=== PATIENT | male | born 1975 | race African-American/Black ===

== ENCOUNTER → 2016-10-11 | Outpatient (CLI) | payer OTHER ==
[~2016-10-11] MED LIST: ACHD5005 PO; ACYC800T PO; AMLO2.5T PO; AMLODIPINE BESYLATE; HCTZ; LISINOPRIL; METOPROLOL; WRF10T PO
== END ==
LOC: CARD 14:53
PROVIDERS: ATTEND Internal Medicine Cardiovascular Disease
DX: I08.3 Combined rheumatic disorders of mitral, aortic and tricuspid valves (principal); R93.1 Abnormal findings on diagnostic imaging of heart and coronary circulation; G47.33 Obstructive sleep apnea (adult) (pediatric); Z95.2 Presence of prosthetic heart valve
CPT/HCPCS: 93306

== ENCOUNTER → 2016-11-20 | Outpatient (CLI) | payer OTHER ==
[~2016-11-20] MED LIST changes: +AMLO10TA2 PO; +HYDR25TA4 PO; +LISI-552 PO; +METO-270 PO; +MULT-35 PO; +NCT7P TD; +WARF10TA44 PO
--- NOTE | 2016-11-20 13:03 | Diagnostic Imaging Report ---
INDICATION: Left-sided tongue numbness x1 week. Noncontrast brain CT is performed and compared to 10/20/2009. FINDINGS: There were no extra-axial fluid collections. No intracranial hemorrhage. No intracranial mass or mass effect. No midline shift. The ventricles are normal in size and position. There is an apparent old infarct in the right occipital lobe which appeared similar on 10/20/09. There is no definite new abnormality. Consider MRI for more sensitive evaluation if clinically warranted. Calvarial windows are unremarkable. 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 There is no acute abnormality seen. Consider MRI for further evaluation if symptoms persist. Dictated by: Dictated on workstation # [id number]
== END ==
LOC: RAD 12:14
PROVIDERS: ATTEND Physician Assistant
DX: R20.0 Anesthesia of skin (principal); I35.1 Nonrheumatic aortic (valve) insufficiency; I34.0 Nonrheumatic mitral (valve) insufficiency; G47.33 Obstructive sleep apnea (adult) (pediatric); R93.1 Abnormal findings on diagnostic imaging of heart and coronary circulation; Z86.73 Personal history of transient ischemic attack (TIA), and cerebral infarction without residual deficits
CPT/HCPCS: 70450

== ENCOUNTER → 2016-11-22 | Day surgery (SDC) | payer OTHER ==
[~2016-11-22] VITALS: Ht 177.8 cm; Wt 95.3 kg
[~2016-11-22] MED LIST changes: +HEParin (CATH LAB) 0 ML IV ONE; +NS IV 1000 ML 1,000 ML IV SCH; +NS IV 1000 ML 1,000 ML ONE
[2016-11-22 11:32] VITALS: BP 136/90
[2016-11-22 11:53] LABS: MEAN PLATELET VOLUME 10.7 FL (7.4-10.4); RED BLOOD COUNT 4.13 10^6/uL (4.35-5.85); RED CELL DISTRIBUTION WIDTH 15.4 % (10.0-14.5); WHITE BLOOD COUNT 5.1 10^3/uL (4.3-11.0)
[2016-11-22 11:53] LABS: BILIRUBIN,URINE NEGATIVE (NEGATIVE); KETONES,URINE NEGATIVE (NEGATIVE); LEUKOCYTE ESTERASE ,URINE 1+ (NEGATIVE); NITRITE,URINE NEGATIVE (NEGATIVE); PH,URINE 7 (5-9); PROTEIN,URINE 1+ (NEGATIVE); UROBILINOGEN,URINE 1 MG/DL (NORMAL)
[2016-11-22 12:03] LABS: INR 2.6 (0.8-1.4); PROTHROMBIN TIME PATIENT 27.7 SEC (12.2-14.7)
[2016-11-22 12:05] LABS: SQUAMOUS EPITHELIAL CELL,UR RARE /HPF; WBC,URINE RARE /HPF
--- NOTE | 2016-11-22 12:13 | Diagnostic Imaging Report ---
EXAMINATION: Portable upright radiograph of the chest. INDICATION: Chest pain. Hypertension. FINDINGS: The lungs are clear. The heart is markedly enlarged. No effusion or pneumothorax. The mediastinum and lay appear unremarkable. There are sternotomy wires seen. IMPRESSION: Cardiomegaly. Clear lungs. Dictated by: Dictated on workstation # [id number]
[2016-11-22 12:14] LABS: ALANINE AMINOTRANSFERASE 38 U/L (0-55); ALBUMIN 3.8 GM/DL (3.2-4.5); ANION GAP 7 MMOL/L (5-14); ASPARTATE AMINO TRANSFERASE 29 U/L (5-34); BILIRUBIN,TOTAL 1.1 MG/DL (0.1-1.0); BLOOD UREA NITROGEN 11 MG/DL (7-18); BUN/CREATININE RATIO 13; CARBON DIOXIDE 26 MMOL/L (21-32); CHLORIDE 106 MMOL/L (98-107); CHOLESTEROL 156 MG/DL (< 200); CREATININE SERUM 0.88 MG/DL (0.60-1.30); DIRECT LDL 89 MG/DL (1-129); GFR ESTIMATED > 60; GLUCOSE 86 MG/DL (70-105); POTASSIUM 3.6 MMOL/L (3.6-5.0); SODIUM 139 MMOL/L (135-145); TOTAL PROTEIN 7.5 GM/DL (6.4-8.2); TRIGLYCERIDES 90 MG/DL (<150); VLDL CHOLESTEROL 18 MG/DL (5-40)
== END ==
LOC: CATH 11:00
PROVIDERS: ATTEND Internal Medicine Cardiovascular Disease
DX: R94.31 Abnormal electrocardiogram [ECG] [EKG] (principal); R07.89 Other chest pain; Z53.09 Procedure and treatment not carried out because of other contraindication; Z95.2 Presence of prosthetic heart valve; I10 Essential (primary) hypertension; E78.5 Hyperlipidemia, unspecified; I50.9 Heart failure, unspecified
CPT/HCPCS: 36415; 71010; 80053; 80061; 81000; 85027; 85610; 85730; 87081; 93005

== ENCOUNTER 2016-11-24 07:57 | Day surgery (SDC) | payer OTHER ==
[~2016-11-24] VITALS: Ht 177.8 cm; Wt 95.3 kg
[2016-11-24] VITALS (11 sets, daily range): BP systolic 128–143; BP diastolic 85–102
[~2016-11-24 07:57] MED LIST changes: -HEParin (CATH LAB) 0 ML IV ONE; +LIDOCAINE 2% VISCOUS 15 ML UDC ONE; -METO-270 PO; +METO-387 PO; -NCT7P TD; +NICO-586 TD; -NS IV 1000 ML 1,000 ML IV SCH
[2016-11-24] MEDS ORDERED: HEParin (CATH LAB) 2,000 ML IV ONE (07:58)
[2016-11-24] MEDS ORDERED: NS IV 1000 ML 1,000 ML IV SCH ×2 (08:05→09:39)
[2016-11-24 08:37] LABS: INR 1.2 (0.8-1.4); PROTHROMBIN TIME PATIENT 15.3 SEC (12.2-14.7)
[2016-11-24] MEDS ORDERED: MIDAZOLAM 5 MG/5 ML (VERSED) VIAL ONE (08:45)
[2016-11-24] MEDS ORDERED: fentaNYL INJECTION 100 MCG/2 ML AMP ONE (08:45)
--- NOTE | 2016-11-24 08:57 | Cardiac Procedure Note-CS/ASA ---
Pre-Procedure Note Pre-Op Procedure Note H&P Reviewed The H&P was reviewed, patient examined and no changes noted. Date H&P Reviewed: Nov 24, 2016 Time H&P Reviewed: 08:56 Conscious Sedation Pre-Proced Time Reviewed: 08:56 ASA Class: 3 Airway Mallampati Classification: ([place] appropriate class) I. II. III, IV Lungs Heart ASA score ASA 1: a normal healthy patient ASA 2: a patient with a mild systemic disease (mid diabetes, controlled hypertension, obesity x ASA 3: a patient with a severe systemic disease that limits activity (angina , COPD, prior Myocardial infarction) ASA 4: a patient with an incapacitating disease that is a constant threat to life (CHF, renal failure) ASA 5: a moribund patient not expected to survive 24 hrs. (ruptured aneurysm) ASA 6: a declared brain patient whose organs are being harvested. For emergent operations, add the letter E after the classification Grade 3 Sedation Plan: Analgesia, Amnesia, Plan communicated to team members, Discussed options with patient/fam, Discussed risks with patient/fam Note The patient is an appropriate candidate to undergo the planned procedure, sedation, and anesthesia. The patient immediately re-assessed prior to indication. DANNA RODRIGUEZ MD Nov 24, 2016 08:57
[2016-11-24] MEDS ORDERED: HEParin 1000 UNIT/ML (10ML VIAL) FOR BOLUS ONE (09:16)
[2016-11-24] MEDS ORDERED: EPTIFIBATIDE BOLUS 0 ML IV ONE (09:16)
[2016-11-24] MEDS ORDERED: NITROGLYCERIN DRIP 25 MG/D5W 0 ML IV ONE (09:16)
[2016-11-24] MEDS ORDERED: PATIENT MAY USE OWN MEDS, ALL PO SCH (09:45)
[2016-11-24] MEDS ORDERED: warFARin 10 MG (COUMADIN) TAB PO NR (09:45)
--- NOTE | 2016-11-24 09:48 | Cardiac Cath Report ---
Cardiac Cath Report Physician (s)/Line Leader (s) Physician DANNA RODRIGUEZ MD Pre-Procedure Diagnosis Pre-Procedure Diagnosis: CHF Post-Procedure Note Procedure Start Date: Nov 24, 2016 Procedure Start Time: 09:00 Name of Procedure: coronary angiogram, thoracic aortogram Findings/Procedure Note PROCEDURE NOTE: After explaining the procedure to the patient, all pros and cons were explained, all questions were answered. The patient signed the consent and then she was placed on the cardiac catheterization laboratory. The patient was placed on the cardiac catheterization laboratory. Groin was prepped SL fashion local anesthesia was used. Sheath placed in the artery. Chela right and left catheter were used to access the coronary system, AR 2 catheter was used to axis the bypassed right coronary artery Pigtail was used without crossing the prosthetic valve, aortic arch angiogram and ascending aortogram evaluation was done At the end of the procedure the sheath was removed. Closure device was used FINDINGS: Hemodynamics Aorta 124/73 mean of 82 ANATOMY: Left Main is normal Left Anterior Descending slightly tortuous mild disease nonobstructive disease Left Circumflex nondominant, moderate in size with nonobstructive disease Right Coronory Artery is totally occluded proximally, bypass graft to the proximal right coronary artery is patent with excellent flow distally mild to moderate disease in the midright coronary artery Aorta evaluation was done with a pigtail catheter placed just above the prosthetic valve, the aortic root and proximal ascending aorta is dilated, mild atherosclerotic disease in the aortic arch and descending aorta with prominent aorta CONCLUSION: [id number]-[id number] coronary artery disease on the left system, nonobstructive disease Totally occluded proximal right coronary artery, patent vein graft to the proximal right coronary artery with mild to moderate disease in the mid picayune right coronary artery, good flow distally Ascending aortic aneurysm, dilated aortic root with atherosclerotic disease Normal function bicuspid metallic aortic valve DISCUSSION AND RECOMMENDATION: patient has mild to moderate disease with patent bypass graft to the proximal right coronary artery, good flow distally, nonischemic cardiomyopathy, medical therapy is recommended no intervention is warranted Anesthesia Type: Conscious Sedation Estimated blood loss (mL): 25 ml Contrast Amount: 125 ml Total Radiation Dose: 933 mGy Post-Procedure Diagnosis Post-operative diagnosis: Thoracic aortic aneurysm Nonischemic cardiomyopathy, ejection fraction 30 percent, chronic compensated left ventricle systolic dysfunction Coronary artery disease Hypertension Aortic valve replacement DANNA RODRIGUEZ MD Nov 24, 2016 09:48
--- NOTE | 2016-11-24 09:50 | Clinic Account Progress/Dx ---
Clinic Account Progress/Dx DIAGNOSIS: Date Seen by Provider: Nov 24, 2016 Time Seen by Provider: 09:50 Diagnosis Thoracic aortic aneurysm Nonischemic cardiomyopathy, ejection fraction 30 percent, chronic compensated left ventricle systolic dysfunction Coronary artery disease Hypertension Aortic valve replacement DANNA RODRIGUEZ MD Nov 24, 2016 09:50
[2016-11-24] MEDS ORDERED: amLODIPine 10 MG (NORVASC) TAB PO NR (12:31)
[2016-11-24] MEDS ORDERED: HYDROCHLOROTHIAZIDE 25 MG (HCTZ) TAB PO NR (12:32)
[2016-11-24] MEDS ORDERED: lisINopril 20 MG (ZESTRIL) TAB PO NR (12:33)
--- NOTE | 2016-11-24 12:49 | Discharge Inst-Post CATH ---
Discharge Inst-CATH Post Cardiac Cath D/C Inst Follow Up/Plan PT/INR next week Appointment with Dr Jimenez's office in 2 weeks CARDIAC CATH DISCHARGE INSTRUCTIONS *Hold Metformin for 48 hours post heart cath. ACTIVITY * Go Home directly and rest. * Limit activity of the leg (or wrist if it was used) for 7 days including aerobics, swimming, jogging, bicycling, etc. * Restrict stair-climbing for 7 days if possible, if not, climb up with your non -cath leg, then bring together on the same step. * Avoid lifting, pushing, pulling or excessive movement of the affected extremity for 7 days. * Customary sexual activity may be resumed after 2 days-use caution not to use a position that strains or causes pain to the affected extremity. * No driving for 24 hours. * NO SMOKING. * Avoid straining for bowel movements for 7 days. * Gentle walking on level ground is allowed. * Returning to work will depend on the type of procedure and the results. Your doctor will discuss this with you. CALL YOUR DOCTOR FOR ANY OF THE FOLLOWING: *If bleeding from the puncture site occurs- Apply gentle pressure to site with clean cloth and call your doctor or EMS. * If a knot or lump forms under the skin, increases in size, or causes pain. * If bruising appears to be worsening or moving further down your leg instead of disappearing. * Temperature above 101 F. CARE OF YOUR GROIN INCISION; * Bruising or purple discoloration of the skin near the puncture site is common. * You may shower only, no bathtub bathing for 5 days. Be careful to avoid slipping as your leg may feel stiff. * If a closure device was used on your femoral artery, please see the attached guide regarding care of the device and your leg. * REMOVE the dressing from your groin the next day after your procedure in the shower. CARE OF YOUR WRIST INCISION; * Bruising or purple discoloration of the skin near the puncture site is common. * You may shower. * DO NOT submerge wrist. * Remove dressing in 24 hours. DANNA JIMENEZ MD Nov 24, 2016 12:49 pm
[2016-11-24] MEDS ORDERED: amLODIPine 10 MG (NORVASC) TAB PO SCH (21:00)
[2016-11-25] MEDS ORDERED: MULTIVIT W/MINERALS TAB (THERAGRAN M) PO SCH (07:00)
[2016-11-25] MEDS ORDERED: HYDROCHLOROTHIAZIDE 25 MG (HCTZ) TAB PO SCH (09:00)
[2016-11-25] MEDS ORDERED: lisINopril 20 MG (ZESTRIL) TAB PO SCH (09:00)
[2016-11-25] MEDS ORDERED: NICOTINE 7 MG (NICODERM) PATCH TD SCH (09:00)
[2016-11-26] MEDS ORDERED: NICOTINE PATCH REMOVAL TP SCH (09:00)
== END 2016-11-24 16:20 | disposition home or self-care (01) ==
LOC: CATH 07:57 → ICU 09:55 → ENPENDDIS 16:00 → CATH 16:20
PROVIDERS: ATTEND Physician Assistant
DX: R07.89 Other chest pain (principal); I25.10 Atherosclerotic heart disease of native coronary artery without angina pectoris; I50.22 Chronic systolic (congestive) heart failure; I10 Essential (primary) hypertension; I71.2 Thoracic aortic aneurysm, without rupture; I25.82 Chronic total occlusion of coronary artery; Z79.01 Long term (current) use of anticoagulants; I34.0 Nonrheumatic mitral (valve) insufficiency; R20.0 Anesthesia of skin; I69.398 Other sequelae of cerebral infarction; G47.33 Obstructive sleep apnea (adult) (pediatric); E78.5 Hyperlipidemia, unspecified; Z95.2 Presence of prosthetic heart valve; Z95.1 Presence of aortocoronary bypass graft; Z79.899 Other long term (current) drug therapy; Z72.0 Tobacco use
CPT/HCPCS: 36415; 85610; 93455; 93567

== ENCOUNTER 2019-05-23 10:59 | Emergency (ER) | payer SELFPAY ==
[~2019-05-23] VITALS: Ht 182 cm; Wt 93.2 kg
[~2019-05-23 10:59] MED LIST changes: -AMLO10TA2 PO; +AMLO10TA7 PO; -LIDOCAINE 2% VISCOUS 15 ML UDC ONE; -METO-387 PO; +MTP25TSR PO; -NS IV 1000 ML 1,000 ML ONE
[2019-05-23 11:35] LABS: BASOPHILS % (AUTO) 0 % (0-10); EOSINOPHILS # (AUTO) 0.1 10^3/uL (0.0-0.3); EOSINOPHILS % (AUTO) 1 % (0-10); HEMATOCRIT 34 % (40-54); HEMOGLOBIN 11.2 G/DL (13.3-17.7); LYMPHOCYTES # (AUTO) 1.9 X 10^3 (1.0-4.0); LYMPHOCYTES % (AUTO) 29 % (12-44); MEAN CORPUSCULAR HEMOGLOBIN 32 PG (25-34); MEAN CORPUSCULAR HGB CONC 33 G/DL (32-36); MEAN CORPUSCULAR VOLUME 95 FL (80-99); MEAN PLATELET VOLUME 10.1 FL (7.4-10.4); MONOCYTES # (AUTO) 0.4 X 10^3 (0.0-1.0); MONOCYTES % (AUTO) 7 % (0-12); NEUTROPHILS # (AUTO) 4.2 X 10^3 (1.8-7.8); NEUTROPHILS % (AUTO) 63 % (42-75); PLATELET COUNT 180 10^3/uL (130-400); RED CELL DISTRIBUTION WIDTH 13.3 % (10.0-14.5); WHITE BLOOD COUNT 6.6 10^3/uL (4.3-11.0)
[2019-05-23 11:48] LABS: INR 1.9 (0.8-1.4); PROTHROMBIN TIME PATIENT 22.4 SEC (12.2-14.7)
[2019-05-23 11:59] LABS: ALANINE AMINOTRANSFERASE 87 U/L (0-55); ALBUMIN 3.6 GM/DL (3.2-4.5); ALKALINE PHOSPHATASE 55 U/L (40-136); BILIRUBIN,TOTAL 0.5 MG/DL (0.1-1.0); BUN/CREATININE RATIO 12; CALCIUM 8.7 MG/DL (8.5-10.1); CARBON DIOXIDE 24 MMOL/L (21-32); CHLORIDE 104 MMOL/L (98-107); CREATININE SERUM 1.21 MG/DL (0.60-1.30); GFR ESTIMATED > 60; GLUCOSE 106 MG/DL (70-105); MAGNESIUM 1.8 MG/DL (1.6-2.4); SODIUM 138 MMOL/L (135-145); TOTAL PROTEIN 6.8 GM/DL (6.4-8.2)
--- NOTE | 2019-05-23 12:06 | ED Chest Pain ---
General Chief Complaint: Chest Pain Stated Complaint: CHEST TIGHTNESS;SOA Nursing Triage Note: pt presents to ED with c/o chest pain/pressure since yesterday morning. pt states the pressure gets worse when he lays down and on exertion. pt went to PCP office yesterday and had EKG done, in which the doctor told him that he "could have an arrythmia and to go to ED." however, pt wanted to wait it out and see if pain subsided. pain continued today. pt has hx of CHF. Nursing Sepsis Screen: No Definite Risk Source: patient, old records Exam Limitations: no limitations History of Present Illness Date Seen by Provider: May 23, 2019 Time Seen by Provider: 11:05 Initial Comments This 44-year-old man presents to the emergency room with complaints of chest tightness and orthopnea for the past 2-3 days. He has a mechanical heart valve and is on warfarin therapy. His primary care providers Dr. Castellon. 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 He has worsening chest tightness and dyspnea upon lying flat and on exertion. Allergies and Home Medications Allergies Coded Allergies: NKANo Known Allergies (Verified Allergy, Unknown, 03/04/06) Home Medications Amlodipine Besylate 10 Mg Tablet, 10 MG PO HS, (Reported) Hydrochlorothiazide 25 Mg Tablet, 25 MG PO DAILY, (Reported) Lisinopril 20 Mg Tablet, 20 MG PO DAILY, (Reported) Metoprolol Succinate 25 Mg Tab.er.24h, 25 MG PO HS, (Reported) Multivitamin 1 Each Tablet, 1 TAB PO DAILY, (Reported) Nicotine 1 Each Patch.td24, 7 MG TD DAILY, (Reported) Potassium Chloride 20 Meq Tablet.er, 2 TAB PO DAILY Prescribed by: CRISTINA DONALDSON on 05/23/19 1310 Warfarin Sod 10 Mg Tab, 15 MG PO SuTuTh, (Reported) TAKES 1 & 1/2 (10MG) TABLETS Warfarin Sodium 10 Mg Tablet, 10 MG PO MoWeFrSa, (Reported) Patient Home Medication List Home Medication List Reviewed: Yes Review of Systems Review of Systems Constitutional: no symptoms reported EENTM: No Symptoms Reported Respiratory: See HPI Cardiovascular: See HPI Gastrointestinal: No Symptoms Reported Genitourinary: No Symptoms Reported Musculoskeletal: no symptoms reported Skin: no symptoms reported Psychiatric/Neurological: No Symptoms Reported Endocrine: No Symptoms Reported Past Faxxbvy-Wtuecj-Roxuwt Hx Past Med/Social Hx: Reviewed Nursing Past Med/Soc Hx Patient Social History Alcohol Use: Occasionally Uses Recreational Drug Use: No (PAST HX) Smoking Status: Former Smoker Type Used: Cigarettes Former Smoker, Quit: Nov 21, 2016 2nd Hand Smoke Exposure: No Recent Foreign Travel: No Contact w/Someone Who Travel: No Recent Infectious Disease Expo: No Recent Hopitalizations: No Seasonal Allergies Seasonal Allergies: No Past Medical History Surgeries: Yes Cardiac, Valve Replacement (Biomechanical) Respiratory: No Cardiac: Yes (CHF) Neurological: No Genitourinary: No Gastrointestinal: No Musculoskeletal: No Endocrine: No HEENT: No Cancer: No Psychosocial: No Integumentary: No Physical Exam Vital Signs Vital Signs - First Documented 05/23/19 11:28 Temp 36.6 Pulse 77 Resp 16 B/P (MAP) 127/95 (106) Pulse Ox 99 O2 Delivery Room Air Capillary Refill : Less Than 3 Seconds Height, Weight, BMI Height: 5'10.00" Weight: 210lbs. 0.0oz. 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 Norm as Tested Skin: Normal Color, Warm/Dry Progress/Results/Core Measures Results/Orders Lab Results Laboratory Tests Test 05/23/19 11:20 Range/Units White Blood Count 6.6 4.3-11.0 10^3/uL Red Blood Count 3.56 L 4.35-5.85 10^6/uL Hemoglobin 11.2 L 13.3-17.7 G/DL Hematocrit 34 L 40-54 % Mean Corpuscular Volume 95 80-99 FL Mean Corpuscular Hemoglobin 32 25-34 PG Mean Corpuscular Hemoglobin Concent 33 32-36 G/DL Red Cell Distribution Width 13.3 10.0-14.5 % Platelet Count 180 130-400 10^3/uL Mean Platelet Volume 10.1 7.4-10.4 FL Neutrophils (%) (Auto) 63 42-75 % Lymphocytes (%) (Auto) 29 12-44 % Monocytes (%) (Auto) 7 0-12 % Eosinophils (%) (Auto) 1 0-10 % Basophils (%) (Auto) 0 0-10 % Neutrophils # (Auto) 4.2 1.8-7.8 X 10^3 Lymphocytes # (Auto) 1.9 1.0-4.0 X 10^3 Monocytes # (Auto) 0.4 0.0-1.0 X 10^3 Eosinophils # (Auto) 0.1 0.0-0.3 10^3/uL Basophils # (Auto) 0.0 0.0-0.1 10^3/uL Prothrombin Time 22.4 H 12.2-14.7 SEC INR Comment 1.9 H 0.8-1.4 Activated Partial Thromboplast Time 42 H 24-35 SEC Sodium Level 138 135-145 MMOL/L Potassium Level 3.0 L 3.6-5.0 MMOL/L Chloride Level 104 98-107 MMOL/L Carbon Dioxide Level 24 21-32 MMOL/L Anion Gap 10 5-14 MMOL/L Blood Urea Nitrogen 14 7-18 MG/DL Creatinine 1.21 0.60-1.30 MG/DL Estimat Glomerular Filtration Rate > 60 BUN/Creatinine Ratio 12 Glucose Level 106 H 70-105 MG/DL Calcium Level 8.7 8.5-10.1 MG/DL Corrected Calcium 9.0 8.5-10.1 MG/DL Magnesium Level 1.8 1.6-2.4 MG/DL Total Bilirubin 0.5 0.1-1.0 MG/DL Aspartate Amino Transf (AST/SGOT) 83 H 5-34 U/L Alanine Aminotransferase (ALT/SGPT) 87 H 0-55 U/L Alkaline Phosphatase 55 40-136 U/L Myoglobin 48.7 10.0-92.0 NG/ML Troponin I 0.121 H <0.028 NG/ML B-Type Natriuretic Peptide 1273.1 H <100.0 PG/ML Total Protein 6.8 6.4-8.2 GM/DL Albumin 3.6 3.2-4.5 GM/DL Micro Results Microbiology 2/7/20 Influenza Types A,B Antigen (IRA) - Final, Complete My Orders Orders - CRISTINA MCINTOSH MD Cbc With Automated Diff (05/23/19 11:04) Magnesium (05/23/19 11:04) Chest 1 View, Ap/Pa Only (05/23/19 11:04) Ekg Tracing (05/23/19 11:04) Comprehensive Metabolic Panel (05/23/19 11:04) Myoglobin Serum (05/23/19 11:04) Protime With Inr (05/23/19 11:04) Partial Thromboplastin Time (05/23/19 11:04) O2 (05/23/19 11:04) Monitor-Rhythm Ecg Trace Only (05/23/19 11:04) Ed Iv/Invasive Line Start (05/23/19 11:04) Troponin I (05/23/19 11:04) BNP (05/23/19 11:11) Influenza A And B Antigens (05/23/19 11:17) Aspirin Chewable Tablet (Baby Aspirin Ch (05/23/19 12:15) Furosemide Injection (Lasix Injection) (05/23/19 12:30) Potassium Chloride (Tablet) (Klor Con Ta (05/23/19 12:30) Furosemide Injection (Lasix Injection) (05/23/19 12:37) Aspirin Chewable Tablet (Baby Aspirin Ch (05/23/19 12:37) Potassium Chloride (Tablet) (K Dur Table (05/23/19 12:37) Potassium Chloride (Tablet) (Klor Con Ta (05/23/19 12:47) Medications Given in ED Current Medications Medications Dose Ordered Sig/Edith Route Start Time Stop Time Status Last Admin Dose Admin Aspirin 324 mg ONCE ONCE PO 05/23/19 12:15 05/23/19 12:16 DC 05/23/19 12:44 324 MG Furosemide 40 mg ONCE ONCE IVP 05/23/19 12:30 05/23/19 12:31 DC 05/23/19 12:44 40 MG Potassium Chloride 40 meq ONCE ONCE PO 05/23/19 12:30 05/23/19 12:31 DC 05/23/19 12:52 40 MEQ Vital Signs/I&O 05/23/19 05/23/19 05/23/19 11:28 11:28 13:26 Temp 36.6 Pulse 77 78 Resp 16 18 B/P (MAP) 127/95 (106) 123/95 Pulse Ox 99 98 O2 Delivery Room Air Room Air Room Air Blood Pressure Mean: 106 Progress Progress Note : Progress Note Patient was found to have hypokalemia and replacement was initiated with 40 mEq orally. BNP was also elevated suggesting acute failure. Lasix 40 mg IV was administered. Case was discussed with Dr. Cristina who agreed admission for monitoring of potassium replacement and diuresis was appropriate. However, patient refused admission and stating he must work due to lack of insurance and needing to pay his rent. He therefore left AGAINST MEDICAL ADVICE. He was strongly encouraged to stay but declined. Influenza screen was negative. Initial ECG Impression Date: May 23, 2019 Initial ECG Impression Time: 11:16 Initial ECG Rate: 75 Initial ECG Rhythm: Normal Sinus Comment Sinus rhythm with no ST elevation or depression. Automated read reports left bundle branch block. EKG is fairly similar to prior. No abnormal intervals or axis deviation. Diagnostic Imaging Diagonstic Imaging: Xray Plain Films/CT/US/NM/MRI: chest Comments Chest x-ray viewed by me and report reviewed. See report below: NAME: PTEER MOON [facility] REC#: [id number] PT STATUS: DEP ER : 1975 PHYSICIAN: CRISTINA MCINTOSH MD ADMIT DATE: 05/23/19/ER Signed Date of Exam:05/23/19 CHEST 1 VIEW, AP/PA ONLY INDICATION: Chest tightness and shortness of air. TIME OF EXAMINATION: 11:26 AM. COMPARISON: Prior chest from 11/22/2016. FINDINGS: The heart is enlarged. There are changes of median sternotomy. The lungs are clear. No infiltrate or failure is seen. There is no effusion or pneumothorax. IMPRESSION: Cardiomegaly and status post CABG. No acute feature is detected. Report given to Dr. Mcintosh at 12:50 p.m. 05/23/2019/cb Dictated by: Dictated on workstation # [id number] Dict: 05/23/19 1433 Trans: 05/23/19 1535 RG [id number] Interpreted by: NICO MAR MD Electronically signed by: NICO MAR MD 05/23/19 1535 Departure Impression Primary Impression: Acute heart failure Qualified Codes: I50.9 - Heart failure, unspecified Additional Impressions: Chest tightness Hypokalemia Disposition: AGAINST MEDICAL ADVICE Condition: Against Medical Advice Departure-Patient Inst. Referrals: TAWANDA CRISTINA MD [facility] DEREK CASTELLON MD (PCP/Family) Primary Care Physician Patient Instructions: Chest Pain, Heart Failure, Adult, Hypokalemia (DC) Add. Discharge Instructions: Please be advised relieving hospital AGAINST MEDICAL ADVICE. Leaving the hospital before care plan is complete may result in worsening of your condition, cardiac arrhythmias, or even . Please follow-up with your primary care provider soon as possible. Please take an additional dose of Lasix (furosemide) 40 mg by mouth tomorrow morning. Please take potassium chloride as prescribed this afternoon when you peaked up. Take an additional dose tomorrow morning with your dose of Lasix. Return to the emergency room if symptoms worsen or you change her mind about admission. All discharge instructions reviewed with patient and/or family. Voiced un derstanding. Scripts Potassium Chloride (Potassium Chloride) 20 Meq Tablet.er 2 TAB PO DAILY, #4 TAB Prov: CRISTINA MCINTOSH MD 05/23/19 Copy Copies To 1: TAWANDA CRISTINA MD [facility] Copies To 2: DEREK CASTELLON MD, JOSHUA T MD May 23, 2019 12:06
[2019-05-23] MEDS ORDERED: ASPIRIN 81 MG CHEW (CHILDREN'S ASA) PO ONE (12:15)
[2019-05-23] MEDS ORDERED: FUROSEMIDE 40 MG/4 ML INJ (LASIX) IVP ONE (12:30)
[2019-05-23] MEDS ORDERED: KCL 10 MEQ TAB (MICRO K) PO ONE ×2 (12:30→12:47)
[2019-05-23] MEDS ORDERED: FUROSEMIDE 40 MG/4 ML INJ (LASIX) ONE (12:37)
[2019-05-23] MEDS ORDERED: ASPIRIN 81 MG CHEW (CHILDREN'S ASA) ONE (12:37)
[2019-05-23] MEDS ORDERED: KCL 20 MEQ TAB (K-DUR) PO ONE (12:37)
[2019-05-23] MEDS ORDERED: POTA-51 PO (13:10)
[2019-05-23 13:26] VITALS: BP 123/95
--- NOTE | 2019-05-23 14:34 | Diagnostic Imaging Report ---
INDICATION: Chest tightness and shortness of air. TIME OF EXAMINATION: 11:26 AM. COMPARISON: Prior chest from 11/22/2016. FINDINGS: The heart is enlarged. There are changes of median sternotomy. The lungs are clear. No infiltrate or failure is seen. There is no effusion or pneumothorax. IMPRESSION: Cardiomegaly and status post CABG. No acute feature is detected. Report given to Dr. Mcintosh at 12:50 p.m. 05/23/2019/cb Dictated by: Dictated on workstation # [id number]
== END 2019-05-23 13:27 | disposition left against medical advice (07) ==
LOC: EDUNIT# 10:59 → ER 11:01
DX: I50.9 Heart failure, unspecified (principal); R07.89 Other chest pain; E87.6 Hypokalemia; Z79.01 Long term (current) use of anticoagulants; Z87.891 Personal history of nicotine dependence; Z95.4 Presence of other heart-valve replacement
CPT/HCPCS: 36415; 71045; 80053; 83735; 83874; 83880; 84484; 85025; 85610; 85730; 87804; 93005; 93041

== ENCOUNTER 2019-07-14 07:14 | Observation (INO) | payer OTHER ==
[~2019-07-14] VITALS: Ht 180.3 cm; Wt 91.3 kg
[~2019-07-14 07:14] MED LIST changes: +POTA-51 PO
--- OUTSIDE RECORDS SUMMARY | 2019-07-14 07:20 | XMS REPORT | Continuity of Care Document ---
Demographics Preferred Language Unknown Marital Status Unknown Scientology Affiliation Unknown Race Unknown Ethnic Group Unknown Author Organization Unknown Address Unknown Phone Unavailable Allergies There is no data. Medications There is no data. Problems There is no data. Procedures There is no data. Results Test Result Range CMP - 06/24/19 13:15 GLUCOSE 90 mg/dL 65-99 UREA NITROGEN (BUN) 18 mg/dL 7-25 CREATININE 1.10 mg/dL 0.60-1.35 eGFR NON-AFR. [place] 81 mL/min/1.73m2 > OR = 60 eGFR 93 mL/min/1.73m2 > OR = 60 BUN/CREATININE RATIO NOT APPLICABLE (calc) 6-22 SODIUM 140 mmol/L 135-146 POTASSIUM 3.2 mmol/L 3.5-5.3 CHLORIDE 103 mmol/L 98-110 CARBON DIOXIDE 27 mmol/L 20-32 CALCIUM 9.0 mg/dL 8.6-10.3 PROTEIN, TOTAL 7.2 g/dL 6.1-8.1 ALBUMIN 4.0 g/dL 3.6-5.1 GLOBULIN 3.2 g/dL (calc) 1.9-3.7 ALBUMIN/GLOBULIN RATIO 1.3 (calc) 1.0-2. 5 BILIRUBIN, TOTAL 0.8 mg/dL 0.2-1.2 ALKALINE PHOSPHATASE 57 U/L 36-130 AST 26 U/L 10-40 ALT 18 U/L 9-46 BNP - 06/24/19 13:15 B TYPE NATRIURETIC PEPTIDE (BNP) 469 pg/mL <100 Encounters ACCT No. Visit Date/Time Discharge Status Pt. Type Provider Facility Loc./Unit Complaint [id number] 06/24/2019 09:00:00 Document Registration
--- OUTSIDE RECORDS SUMMARY | 2019-07-14 07:20 | XMS REPORT ---
Author Author [facility] Organization [facility] Address [address] [address] Care Team Providers Care Science Intern Name Role Phone DEREK CASTELLON Keith Unavailable DANNA JIMENEZ MD Unavailable Unavailable ASHISH MEYER, CRISTINA Julien Unavailable Unavailable LESLI CARTER, FREDY K Unavailable Unavailab DANNA Quispe MD Unavailable Unavailable IVAN APPIAH APRN Unavailable Unavailable Unavailable Unavailable Allergies Normalized Allergy Reported Date of Reaction(s) Care Provider Facility Allergy Type classification allergen Allergy Onset MA (5 Unclassified NKANo Known 03-04-2006 - no information ARIS JIMENEZ , Not Available sources.) Allergies (07265) Medications No Information Problems Problem Normalized Date of Normalized Normalized Provider Fac ility Classification Problem(s) Problem Problem Problem Sta tus Onset/Resoluti Duration on Other Abnormal 05-23-2019 - Episodic Active DANNA JIMENEZ [facility] Via screening for findings on [facility] suspected diagnostic Hospital - conditions imaging of [place] (not mental heart and (23842) disorders or coronary infectious circulation disease) (10 Translations: sources.) [ ABNORMAL ELECTROCARDIOG ALEK [ECG] [EKG]] Other nervous Anesthesia of 05-23-2019 - Episodic Active [facility]ED [facility] Via system skin INDU [place] disorders (6 N , [place] [facility] - sources.) [place] ([address]) 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 FREDY [facility] Via atherosclerosi occlusion of THOMAS-ANDERSO Caitlin s and other coronary N , [facility] - heart disease artery [place] (6 sources.) Translations: (93765) [ ATHSCL HEART DISEASE OF [place] CORONARY ] 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 BASMATHEW JIMENEZ , [facility] Via disorders (20 rheumatic [facility] sources.) disorders of Hospital - mitral, aortic [place] and tricuspid (42180) valves Translations: [ PRESENCE OF PROSTHETIC HEART VALVE, PRESENCE OF OTHER HEART-VALVE REPLACEMEN, NONRHEUMATIC MITRAL (VALVE) INSUFFICIENC, NONRHEUMATIC AORTIC (VALVE) INSUFFICIENC] Essential Essential 05-23-2019 - Chronic Active BASHAR JENNIFER , [facility] Via hypertension (primary) [facility] (6 sources.) hypertension [facility] () Congestive Heart failure, 05-23-2019 - Chronic Active BASHAR JENNIFER , [facility] Via heart failure; unspecified [facility] nonhypertensiv Translations: Hospital - e (12 [ CHRONIC [place] sources.) SYSTOLIC () (CONGESTIVE) HEART FAIL] Disorders of Hyperlipidemia 05-23-2019 - Chronic Active BASHA R JENNIFER , [facility] Via lipid , unspecified [facility] metabolism (6 Hospital - sources.) [place] () Fluid and Hypokalemia 05-27-2019 - Episodic Active CRISTINA [facility] Via electrolyte Caitlin HINOJOSA disorders (6 MD Hospital - sources.) [place] () Other correction 05-23-2019 - Episodic Active FREDY [facility] Via aftercare (9 (current) use INDU Tucker sources.) of N [facility] Hospital - anticoagulants [place] ([address]) 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 BASHAR JENNIFER , [facility] Via codes; sleep apnea [facility] unclassified (adult) Hospital - (10 sources.) (pediatric) [place] ([address]) Nonspecific Other chest 05-23-2019 - Episodic Active BASHAR MA RJI , [facility] Via chest pain (18 pain MD [facility] sources.) [facility] (86548) Other Other long 05-23-2019 - Episodic Active FREDY [facility] Via aftercare (3 term (current) MARTHA-RENETTA Tucker sources.) drug therapy RAUL [facility] (06736) Late effects Other sequelae 05-23-2019 - Chronic Active MERED [facility] Via of of cerebral MARTHA-RENETTA Tucker cerebrovascula infarction [facility] - r disease (3 [place] sources.) ([address]6550) Other Pain in left 05-23-2019 - Episodic Active ASHDEN [facility] , [facility] Via non-traumatic knee TRANSPORT COORDINATOR Caitlin joint Hospital - disorders (3 [place] sources.) ([address]140) Screening and Personal 05-27-2019 - Episodic Active CRISTINA [facility] Via history of history of Caitlin HINOJOSA mental health nicotine Hospital - and substance dependence [place] abuse codes (6 (75740) sources.) Other Personal 05-23-2019 - Episodic Active FREDY [facility] V ia circulatory history of THOMAS-ANDERSO [place]lin disease (3 transient N , [facility] - sources.) ischemic [place] attack (TIA), (49421) and cerebral infarction without residual deficits Coronary Presence of 05-23-2019 - Episodic Active FREDY [facility] Via atherosclerosi aortocoronary MARTHA-ANDSADIAO Caitlin s and other bypass graft N , [facility] - heart disease [place] (3 sources.) (10931) Residual Procedure and 05-23-2019 - Episodic Active BASMATHEW STRONG , [facility] Via codes; treatment not MD [facility] unclassified carried out Hospital - (3 sources.) because of [place] other (86452) contraindicati on Aortic; 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-2019 - Chronic Active FREDY [facility] V ia peripheral; 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, N , [facility] - artery without [place] aneurysms (3 rupture (39778) sources.) Residual Tobacco use 05-23-2019 - Episodic Active FREDY [facility] Via codes; THOMAS-ANDERSO [place]lin unclassified N [facility] - (3 sources.) [place] ([address]72) Procedures No Information Immunizations No Information Results Test Name Value Interpretation Reference Range Date Time Fa cility (Normalized) (Normalized) (Medline Reference) No panel information on 2019-06-27 CURRENT COUMADIN 10mg daily (no code) [facility] (66896) INR Coag (PPP) 3.0 {INR} (no code) 0.9 - 1.1 {INR} [facility] [Relative time] [facility] (88598) No panel information on 2019-06-24 Albumin 4.0 g/dL (N) 3.4 - 5.4 g/dL [facility] [Mass/Vol] [facility] (13515) Albumin/Globulin 1.3 {ratio} (N) 1 - 2.5 {ratio} Comm [facility] [Mass ratio] [facility] (12133) ALP [Catalytic 57 U/L (N) 44 - 147 U/L [facility] activity/Vol] [facility] (77314) ALT [Catalytic 18 U/L (N) 4 - 40 U/L [facility] activity/Vol] [facility] (33450) AST [Catalytic 26 U/L (N) 10 - 34 U/L [facility] activity/Vol] [facility] (76364) Bilirubin 0.8 mg/dL (N) 0.1 - 1.2 mg/dL [facility] [Mass/Vol] [facility] (24447) Calcium 9.0 mg/dL (N) 8.5 - 10.2 mg/dL [facility] [Mass/Vol] [facility] (57785) Chloride 103 mmol/L (N) 95 - 106 mmol/L [facility] [Moles/Vol] [facility] (40400) CO2 [Moles/Vol] 27 mmol/L (N) 23 - 29 mmol/L [facility] (85056) Creatinine 1.10 mg/dL (N) [facility] [Mass/Vol] [facility] (27570) Free T4 1.2 ng/dL (N) 0.9 - 2.2 ng/dL [facility] [Mass/Vol] [facility] (06482) GFR/1.73 sq M 93 (N) 90 - 120 Community [facility] predicted among mL/min/{1.73_m2} mL/min/{1.73_m2} [place] [facility] blacks MDRD [facility] (S/P/Bld) [Vol (48163) rate/Area] GFR/1.73 sq 81 (N) 90 - 120 [facility] th M.predicted MDRD mL/min/{1.73_m2} mL/min/{1.73_m2} [facility] (S/P/Bld) [Vol [facility] rate/Area] (98914) Globulin (S) 3.2 g/dL (N) 2 - 3.5 g/dL [facility] ealt [Mass/Vol] [facility] (87881) Glucose 90 mg/dL (N) 60 - 125 mg/dL [facility] [Mass/Vol] [facility] (45496) Natriuretic 469 pg/mL (H) 0 - 100 pg/mL [facility] ealth peptide B (Bld) [facility] [Mass/Vol] [facility] (47375) Potassium 3.2 mmol/L (L) 3.7 - 5.2 mmol/L [facility] [Moles/Vol] [facility] (58844) Protein 7.2 g/dL (N) 6.4 - 8.3 g/dL [facility] [Mass/Vol] [facility] (04425) Sodium 140 mmol/L (N) 135 - 145 mmol/L [facility] [Moles/Vol] [facility] (85147) TSH Qn 0.70 m[IU]/L (N) 0.4 - 4 m[IU]/L [facility] (97459) Urea nitrogen 18 mg/dL (N) 7 - 20 mg/dL [facility] [Mass/Vol] [facility] (43366) Urea NOT APPLICABLE (no code) [facility] nitrogen/Creatin [facility] [Mass ratio] [facility] (12736) Vital Signs The data below is from unstructured sources Vital Response Date/Time Temperature (Fahrenheit) 98.0 degree s F (97.6 - 99.5) 11/24/2016 4:00pm Temperature (Calculated Celsius) 36. 01996 degrees C (36.4 - 37.5) 11/24/2016 4:00pm Temperature Source Temporal 11/24/2016 4:00pm Pulse Rate (adult) 64 bpm (60 - 90) 11/24/2016 4:00pm Respiratory Rate 14 bpm (12 - 24) 11/24/2016 4:00pm O2 Sat by Pulse Oximetry 100 % (88 - 100) 11/24/2016 4:00pm Blood Pressure 134/91 mm Hg 11/24/2016 4:00pm Blood Pressure Mean 105 mm Hg 11/24/2016 4:00pm Pain Numeric Pain Scale 0-No Pain 11/24/2016 4:00pm Height (Feet) 5 feet 02/2017 8:09am Height (Inches) 10.00 inches 11/24/2016 8:09am Height (Calculated Centimeters) 177. 669512 cm 11/24/2016 8:09am Weight (Pounds) 210 pounds 11/24/2016 8:09am Weight (Ounces) 0.0 oz 0 11/24/2016 8:09am Weight (Calculated Grams) 23872.40 gm 11/24/2016 8:09am Weight (Calculated Kilograms) 95.254 399 kilograms 11/24/2016 8:09am Calculated BMI 30.1 11/14 8:09am Capillary Refill Capillary Refill Less Than 3 Seconds 11/24/2016 4:00pm Interventions No Information Plan of Treatment The data below is from unstructured sources Discharge Date 11/24/16 4:20pm Instructions/Education Provided CARD IAC CATH DISCHARGE INSTRUC Prescriptions See Medication Section Goals No Information Social History No Information Functional Status The data below is from unstructured sourcesNo functional status information available. Mental Status No Information Encounters Encounter Normalized Encounter Encounter Diagnosis Care Provi sudhakar Organization Date Type 05-23-2019 Emergency department no information CRISTINA SKY [facility] Via Caitlin - patient visit (no phone) [facility] 05-23-2019 (no phone) 07-04-2019 Patient encounter no information (no phone) [facility] (no phone) 06-27-2019 Patient encounter no information (no phone) [facility] (no phone) 06-24-2019 Patient encounter no information (no phone) [facility] (no phone) 05-23-2019 Patient encounter no information CRISTINA SOLOMON [facility] Via Caitlinbear cardenas MD (no phone) [facility] (no phone) 11-24-2016 Patient encounter no information no name (no phone) no organization name - procedure (no phone) 11-24-2016 11-24-2016 Patient encounter no information FREDY Erickson [facility] [place] ia Caitlin - [facility] (no phone) 11-22-2016 Patient encounter no information DANNA JIMENEZ MD (no [facility] Via Caitlin procedure phone) [facility] (no phone) 11-20-2016 Patient encounter no information FREDY K [facility] V ia Caitlin procedure LESLI CARTER (no Hospital [facility] phone) (no phone) 10-11-2016 Patient encounter no information no name (no phone) no organization name procedure (no phone) 10-11-2016 Patient encounter no information DANNA JIMENEZ MD (no [facility] Via Caitlin procedure phone) [facility] (no phone) 12-07-2015 Patient encounter no information IVAN APPIAH APR N [facility] Via Caitlin procedure (no phone) [facility] (no phone) Medical Equipment No Information Payers No Information Advance Directives Directive Response Recor ded Date/Time Advance Directives No 8:08am Health Care Power of Checkerer Hand No 11/24/16 8:08am Organ Donor Yes 11/24/16 8:08am Resuscitation Status Full Code 11/24/16 8:08am Discharge Instructions Patient Instructions Physician Instructions Follow Up/Plan PT/INR next week Appointment with Dr Jimenez's office in 2 weeks CARDIAC CATH DISCHARGE INSTRUCTIONS *Hold Metformin for 48 hours post heart cath. ACTIVITY * Go Home directly and rest. * Limit activity of the leg (or wrist if it was used) for 7 days including aerobics, swimming, jogging, bicycling, etc. * Restrict stair-climbing for 7 days if possible, if not, climb up with your non-cath leg, then bring together on the same step. * Avoid lifting, pushing, pulling or excessive movement of the affected extremity for 7 days. * Customary sexual activity may be resumed after 2 days-use caution not to use a position that strains or causes pain to the affected extremity. * No driving for 24 hours. * NO SMOKING. * Avoid straining for bowel movements for 7 days. * Gentle walking on level ground is allowed. * Returning to work will depend on the type of procedure and the results. Your doctor will discuss this with you. CALL YOUR DOCTOR FOR ANY OF THE FOLLOWING: *If bleeding from the puncture site occurs- Apply gentle pressure to site with clean cloth and call your doctor or EMS. * If a knot or lump forms under the skin, increases in size, or causes pain. * If bruising appears to be worsening or moving further down your leg instead of disappearing. * Temperature above 101 F. CARE OF YOUR GROIN INCISION; * Bruising or purple discoloration of the skin near the puncture site is common. * You may shower only, no bathtub bathing for 5 days. Be careful to avoid slipping as your leg may feel stiff. * If a closure device was used on your femoral artery, please see the attached guide regarding care of the device and your leg. * REMOVE the dressing from your groin the next day after your procedure in the shower. CARE OF YOUR WRIST INCISION; * Bruising or purple discoloration of the skin near the puncture site is common. * You may shower. * DO NOT submerge wrist. * Remove dressing in 24 hours. Additional Source Comments This clinical document has been generated using [employer] software that has been certified by the Office of the National Coordinator for Health Information Technology (ONC 15.99.04.3023.Diam.31.00.0.999027) and the National Committee for Library Monitor (NCQA, as an eMeasure certified technology). FOR RECORDS PERTAINING TO PATIENTS WHO ARE OR HAVE BEEN ENROLLED IN A CHEMICAL D EPENDENCY/SUBSTANCE ABUSE PROGRAM, SOME INFORMATION MAY BE OMITTED. This clinica l summary was aggregated from multiple sources. Caution should be exercised in using it in the provision of clinical care. This summary normalizes information from multiple sources, and as a consequence, information in this document may ma terially change the coding, format and clinical context of patient data. In rocio tion, data may be omitted in some cases. CLINICAL DECISIONS SHOULD BE BASED ON T HE PRIMARY CLINICAL RECORDS. [employer] provides no warranty or guara ntee of the accuracy or completeness of information in this document.The followi ng information is based on time limited clinical information
[2019-07-14 08:03] LABS: BASOPHILS % (AUTO) 0 % (0-10); EOSINOPHILS % (AUTO) 1 % (0-10); HEMATOCRIT 38 % (40-54); HEMOGLOBIN 12.6 G/DL (13.3-17.7); LYMPHOCYTES # (AUTO) 1.9 X 10^3 (1.0-4.0); LYMPHOCYTES % (AUTO) 33 % (12-44); MEAN CORPUSCULAR HEMOGLOBIN 30 PG (25-34); MEAN CORPUSCULAR HGB CONC 33 G/DL (32-36); MEAN CORPUSCULAR VOLUME 92 FL (80-99); MEAN PLATELET VOLUME 10.1 FL (7.4-10.4); MONOCYTES # (AUTO) 0.6 X 10^3 (0.0-1.0); MONOCYTES % (AUTO) 10 % (0-12); NEUTROPHILS # (AUTO) 3.3 X 10^3 (1.8-7.8); NEUTROPHILS % (AUTO) 57 % (42-75); PLATELET COUNT 171 10^3/uL (130-400); RED CELL DISTRIBUTION WIDTH 13.9 % (10.0-14.5); WHITE BLOOD COUNT 5.8 10^3/uL (4.3-11.0)
[2019-07-14 08:13] LABS: ALANINE AMINOTRANSFERASE 24 U/L (0-55); ALBUMIN 3.9 GM/DL (3.2-4.5); ALKALINE PHOSPHATASE 67 U/L (40-136); BILIRUBIN,TOTAL 1.2 MG/DL (0.1-1.0); BUN/CREATININE RATIO 9; CARBON DIOXIDE 24 MMOL/L (21-32); CHLORIDE 104 MMOL/L (98-107); CREATININE SERUM 1.19 MG/DL (0.60-1.30); GFR ESTIMATED > 60; GLUCOSE 92 MG/DL (70-105); INR 3.2 (0.8-1.4); MAGNESIUM 1.7 MG/DL (1.6-2.4); POTASSIUM 3.3 MMOL/L (3.6-5.0); PROTHROMBIN TIME PATIENT 33.8 SEC (12.2-14.7); SODIUM 138 MMOL/L (135-145); TOTAL PROTEIN 7.6 GM/DL (6.4-8.2)
[2019-07-14 08:37] LABS: ERYTHROCYTE SEDIMENTATION RATE 7 MM/HR (0-15)
--- NOTE | 2019-07-14 08:49 | ED General ---
General Chief Complaint: Respiratory Problems Stated Complaint: LEG/STOMACH SWELLING;SOA Nursing Triage Note: PT PRESENTS TO ED WITH COMPLAINTS OF CONCERNS OF INCREASING CHF/PNEUMONIA. PT REPORTS "IT HURTS TO BREATHE" PT ALSO REPORTS SWELLING TO LEGS. Nursing Sepsis Screen: No Definite Risk Source of Information: Patient Exam Limitations: No Limitations History of Present Illness Date Seen by Provider: Jul 14, 2019 Time Seen by Provider: 07:38 Initial Comments Here with report of shortness of air that it's been increasing over the past several days as well as leg swelling. Recently had med changed from hydrochlorothiazide to furosemide. Does have history of heart failure. Denies fever or chills. Denies sick contacts. Works at the [employer]. Denies cough currently but is short of breath. States that he is having to sleep elevated. Patient was treated for possible pneumonia a few weeks back and started the antibiotics last week. Otherwise taking his meds as directed. Does have history of mechanical heart valve. Timing/Duration: 1 Week, Getting Worse Severity: Moderate Associated Systoms: No Cough, No Fever/Chills, No Nausea/Vomiting; Shortness of Air; No Weakness Allergies and Home Medications Allergies Coded Allergies: NKANo Known Allergies (Verified Allergy, Unknown, 03/04/06) Home Medications Amlodipine Besylate 10 Mg Tablet, 10 MG PO HS, (Reported) Hydrochlorothiazide 25 Mg Tablet, 25 MG PO DAILY, (Reported) Lisinopril 20 Mg Tablet, 20 MG PO DAILY, (Reported) Metoprolol Succinate 25 Mg Tab.er.24h, 25 MG PO HS, (Reported) Multivitamin 1 Each Tablet, 1 TAB PO DAILY, (Reported) Nicotine 1 Each Patch.td24, 7 MG TD DAILY, (Reported) Potassium Chloride 20 Meq Tablet.er, 2 TAB PO DAILY Prescribed by: CRSITINA DONALDSON on 05/23/19 1310 Warfarin Sod 10 Mg Tab, 15 MG PO SuTuTh, (Reported) TAKES 1 & 1/2 (10MG) TABLETS Warfarin Sodium 10 Mg Tablet, 10 MG PO MoWeFrSa, (Reported) Patient Home Medication List Home Medication List Reviewed: Yes Review of Systems Review of Systems Constitutional: see HPI; No chills, No fever EENTM: No ear pain, No nose congestion Respiratory: No cough; short of breath Cardiovascular: No chest pain; edema, Hx of Intervention Gastrointestinal: No abdominal pain, No nausea, No vomiting Genitourinary: no symptoms reported Musculoskeletal: no symptoms reported All Other Systems Reviewed Negative Unless Noted: Yes Past Mxkiprl-Ziuqci-Psboyp Hx Past Med/Social Hx: Reviewed Nursing Past Med/Soc Hx (yes (irregular breakfast ordered a PT/PTT of his lip) Patient Social History Alcohol Use: Occasionally Uses Recreational Drug Use: No (PAST HX) Smoking Status: Former Smoker Type Used: Cigarettes Former Smoker, Quit: May 05, 2019 2nd Hand Smoke Exposure: No Recent Foreign Travel: No Contact w/Someone Who Travel: No Recent Infectious Disease Expo: No Recent Hopitalizations: No Physical Abuse: No Sexual Abuse: No Mistreated: No Fear: No Seasonal Allergies Seasonal Allergies: No Past Medical History Surgeries: Yes Cardiac, Valve Replacement Respiratory: No Cardiac: Yes (CHF) Neurological: No Genitourinary: No Gastrointestinal: No Musculoskeletal: No Endocrine: No HEENT: No Cancer: No Psychosocial: No Integumentary: No Family Medical History Reviewed Nursing Family Hx Physical Exam Vital Signs Vital Signs - First Documented 07/14/19 07:27 Temp 36.9 Pulse 96 Resp 18 B/P (MAP) 127/103 (111) Pulse Ox 97 Capillary Refill : Less Than 3 Seconds Height, Weight, BMI Height: 5'10.00" Weight: 210lbs. 0.0oz. [id number]; 29.00 BMI Method:Stated General Appearance: No Apparent Distress, WD/WN HEENT: PERRL/EOMI, Pharynx Normal Neck: Non Tender, Supple Respiratory: Lungs Clear, Normal Breath Sounds Cardiovascular: Regular Rate, Rhythm, Other (metallic click noted) Gastrointestinal: Non Tender, Soft Back: Normal Inspection, No CVA Tenderness, No Vertebral Tenderness Extremity: Normal Range of Motion, Non Tender, Pedal Edema (3+ to above the knees bilateral) Neurologic/Psychiatric: Alert, Oriented x3 Skin: Normal Color, Warm/Dry Focused Exam Lactate Level 07/14/19 07:30: Lactic Acid Level 1.09 Lactic Acid Level Laboratory Tests Test 07/14/19 07:30 Lactic Acid Level 1.09 MMOL/L (0.50-2.00) Progress/Results/Core Measures Suspected Sepsis Recent Fever Within 48 Hours: No Infection Criteria Present: Suspected New Infection New/Unexplained Altered Menta: No Sepsis Screen: No Definite Risk SIRS Temperature: Pulse: 96 Respiratory Rate: 18 Laboratory Tests 07/14/19 07:30: White Blood Count 5.8 Blood Pressure 127 /103 Mean: 111 07/14/19 07:30: Lactic Acid Level 1.09 Laboratory Tests 07/14/19 07:30: Creatinine 1.19, INR Comment 3.2H, Platelet Count 171, Total Bilirubin 1.2H Results/Orders Lab Results Laboratory Tests Test 07/14/19 07:30 Range/Units White Blood Count 5.8 4.3-11.0 10^3/uL Red Blood Count 4.14 L 4.35-5.85 10^6/uL Hemoglobin 12.6 L 13.3-17.7 G/DL Hematocrit 38 L 40-54 % Mean Corpuscular Volume 92 80-99 FL Mean Corpuscular Hemoglobin 30 25-34 PG Mean Corpuscular Hemoglobin Concent 33 32-36 G/DL Red Cell Distribution Width 13.9 10.0-14.5 % Platelet Count 171 130-400 10^3/uL Mean Platelet Volume 10.1 7.4-10.4 FL Neutrophils (%) (Auto) 57 42-75 % Lymphocytes (%) (Auto) 33 12-44 % Monocytes (%) (Auto) 10 0-12 % Eosinophils (%) (Auto) 1 0-10 % Basophils (%) (Auto) 0 0-10 % Neutrophils # (Auto) 3.3 1.8-7.8 X 10^3 Lymphocytes # (Auto) 1.9 1.0-4.0 X 10^3 Monocytes # (Auto) 0.6 0.0-1.0 X 10^3 Eosinophils # (Auto) 0.0 0.0-0.3 10^3/uL Basophils # (Auto) 0.0 0.0-0.1 10^3/uL Erythrocyte Sedimentation Rate 7 0-15 MM/HR Prothrombin Time 33.8 H 12.2-14.7 SEC INR Comment 3.2 H 0.8-1.4 Activated Partial Thromboplast Time 47 H 24-35 SEC Sodium Level 138 135-145 MMOL/L Potassium Level 3.3 L 3.6-5.0 MMOL/L Chloride Level 104 98-107 MMOL/L Carbon Dioxide Level 24 21-32 MMOL/L Anion Gap 10 5-14 MMOL/L Blood Urea Nitrogen 11 7-18 MG/DL Creatinine 1.19 0.60-1.30 MG/DL Estimat Glomerular Filtration Rate > 60 BUN/Creatinine Ratio 9 Glucose Level 92 70-105 MG/DL Lactic Acid Level 1.09 0.50-2.00 MMOL/L Calcium Level 9.0 8.5-10.1 MG/DL Corrected Calcium 9.1 8.5-10.1 MG/DL Magnesium Level 1.7 1.6-2.4 MG/DL Total Bilirubin 1.2 H 0.1-1.0 MG/DL Aspartate Amino Transf (AST/SGOT) 39 H 5-34 U/L Alanine Aminotransferase (ALT/SGPT) 24 0-55 U/L Alkaline Phosphatase 67 40-136 U/L Lactate Dehydrogenase 509 H 125-220 U/L Troponin I 0.125 H <0.028 NG/ML C-Reactive Protein High Sensitivity 1.22 H 0.00-0.50 MG/DL B-Type Natriuretic Peptide 886.0 H <100.0 PG/ML Total Protein 7.6 6.4-8.2 GM/DL Albumin 3.9 3.2-4.5 GM/DL Procalcitonin 0.05 <0.10 NG/ML Thyroid Stimulating Hormone (TSH) 1.20 0.35-4.94 UIU/ML My Orders Orders - GERMAIN GONSALEZ MD Ed Iv/Invasive Line Start (07/14/19 07:45) Ekg Tracing (07/14/19 07:45) Monitor-Rhythm Ecg Trace Only (07/14/19 07:45) Chest 1 View, Ap/Pa Only (07/14/19 07:45) BNP (07/14/19 07:45) Cbc With Automated Diff (07/14/19 07:45) Comprehensive Metabolic Panel (07/14/19 07:45) Hs C Reactive Protein (07/14/19 07:45) Magnesium (07/14/19 07:45) Procalcitonin (Pct) (07/14/19:45) Protime With Inr (07/14/19 07:45) Partial Thromboplastin Time (07/14/19 07:45) Thyroid Stimulating Hormone (07/14/19 07:45) Troponin I (07/14/19 07:45) Erythrocyte Sedimentation Rate (07/14/19 07:45) Lactic Acid Analyzer (07/14/19 07:45) Blood Culture (07/14/19 07:45) Ferritin (07/14/19 07:45) LDH (07/14/19 07:45) Furosemide Injection (Lasix Injection) (07/14/19 08:52) Vital Signs/I&O 07/14/19 07:27 Temp 36.9 Pulse 96 Resp 18 B/P (MAP) 127/103 (111) Pulse Ox 97 Capillary Refill : Less Than 3 Seconds Blood Pressure Mean: 111 Progress Note : Progress Note Seen and evaluated. IV, labs, chest x-ray, EKG ordered. Lasix 40 mg IV ordered. No concerning screening questions positive for COVID-19. We will check blood cultures and lactic acid as well as other serum markers for infection. Monitor patient. 1008: Patient escalated to standard precautions. Has clear findings of heart failure without other significant findings. I have talked with the radiologist regarding chest x-ray which shows some central vascular congestion. I did discuss the case with Dr. Pearce who accepts patient for admission, inpatient status regarding heart failure. I have discussed the case with the tool polisher on-call, Dr. Carr and he accepts patient in consult. We will continue Lasix 40 mg IV twice a day and order 2-D cardiac echo regarding heart failure. 1022: Dr. Pearce seen patient in the emergency department. ECG Initial ECG Impression Date: Jul 14, 2019 Initial ECG Impression Time: 09:07 Initial ECG Rate: 99 Comment Sinus rhythm with left bundle branch block. No evidence of ST elevation ID. Similar to previous of 05/23/19. Interpreted by me. Diagnostic Imaging Diagonstic Imaging: Xray Plain Films/CT/US/NM/MRI: chest Comments Central vascular congestion without obvious infiltrate Reviewed: Reviewed by Me, Discussed w/Radiologist Departure Communication (Admissions) Time/Spoke to Admitting Phy: 10:08 Time/Spoke to Consulting Phy: 10:05 Impression Primary Impression: Acute heart failure Qualified Codes: I50.9 - Heart failure, unspecified Disposition: 09 ADMITTED INPATIENT Condition: Stable Admissions Decision to Admit Reason: Admit from ER (General) Decision to Admit/Date: Jul 14, 2019 Time/Decision to Admit Time: 10:05 Departure-Patient Inst. Referrals: DEREK CASTELLON MD (PCP/Family) Primary Care Physician GERMAIN GONSALEZ MD Jul 14, 2019 08:49
[2019-07-14] MEDS ORDERED: FUROSEMIDE 40 MG/4 ML INJ (LASIX) IV STA (08:52)
[2019-07-14] MEDS ORDERED: KCL 20 MEQ TAB (K-DUR) PO ONE (11:45)
[2019-07-14] MEDS ORDERED: PATIENT MAY USE OWN MEDS, ALL PO SCH (11:45)
--- NOTE | 2019-07-14 12:06 | Diagnostic Imaging Report ---
Clinical indication: Patient with stomach swelling. Exam: Portable chest x-ray upright view. Comparisons: Portable chest x-ray dated 05/23/2019. Findings: Lungs/pleura: Stable appearance of lung tinsley with no interval lung infiltrate. Mild airspace opacities in both lung bases may be related to atelectasis and/or chronic lung changes. There is no pneumothorax. There is no pleural effusion. Mediastinum: Unremarkable. Pulmonary vasculature: Unremarkable. Heart: Stable cardiomegaly. Sternotomy wires are noted. Bones/extrathoracic soft tissue: Unremarkable. Impression: Stable chest x-ray exam with no interval radiographic evidence of acute cardiopulmonary process. The stable mild opacities in both lung bases may be related to atelectasis and/or scarring. Dictated by: Dictated on workstation # [id number]
--- NOTE | 2019-07-14 12:58 | Consultation-Cardiology ---
HPI-Cardiology Cardiology Consultation: Date of Consultation 07/14/19 Date of Admission Attending Physician Karthik Vazquez MD Admitting Physician Josse Crocker MD Consulting Physician Rebecca CARR MD HPI: Time Seen by a Provider: 15:00 Chief Complaint: Shortness of breath This is a 44-year-old gentleman with previous history of prosthetic aortic valve, nonischemic cardiomyopathy, 1 bypass to RCA. He presents with acute shortness of breath. He has been having worsening of his of breath for the last few days. Denies any chest pain. Patient was treated for pneumonia a few weeks ago. Denies active smoking. No pertinent family history. Father has history of WPW. Patient has history of mechanical heart valve and is on Coumadin. Review of Systems-Cardiology Review of Systems Constitutional: As described under HPI; No As described under HPI, No no symptoms reported, No chills, No fever, No lightheadedness Eyes: No As described under HPI, No no symptoms reported, No blindness, No blurred vision, No contact lenses, No drainage, No decreased acuity, No foreign body sensation, No pain, No vision change Ears/Nose/Throat: No As described under HPI, No no symptoms reported, No chronic hearing loss, No ear discharge, No ear pain, No nasal drainage, No ulcerations Respiratory: No no symptoms reported; As described under HPI; No As described under HPI, No cough; orthopnea, shortness of breath; No SOB with excertion Cardiovascular: No no symptoms reported; As described under HPI; No As described under HPI, No chest pain, No edema, No irregular heart rate, No lightheadedness, No palpitations Gastrointestinal: No no symptoms reported, No As described under HPI, No abdomen distended, No abdominal pain, No blood streaked bowels, No constipation, No diarrhea, No nausea, No vomiting, No stool coloration changes Genitourinary: No As described under HPI, No burning, No dysuria, No discharge, No frequency, No flank pain, No hematuria, No urgency Skin: No rash, No skin related problems, No ulcerations Psychiatric/Neurological: No anxiety, No depression, No seizure, No focal weakness, No syncope Hematologic: No bleeding abnormalities All Other Systems Reviewed Negative Unless Noted: Yes JHX-Ibijut-Aeybzj Hx Patient Social History Alcohol Use: Occasionally Uses Recreational Drug Use: No (PAST HX) Smoking Status: Former Smoker Type Used: Cigarettes 2nd Hand Smoke Exposure: No Recent Foreign Travel: No Recent Infectious Disease Expo: No Past Medical History PMH As described under Assessment. Allergies and Home Medications Allergies Coded Allergies: KOLEANo Known Allergies (Verified Allergy, Unknown, 03/04/06) Home Medications Amlodipine Besylate 10 Mg Tablet, 10 MG PO DAILY, (Reported) Furosemide 40 Mg Tablet, 40 MG PO DAILY Take 2 tabs (80 mg) daily for 3 days, then go back to 40 mg daily. Prescribed by: KARTHIK VAZQUEZ on 07/15/19 1446 Lisinopril 20 Mg Tablet, 20 MG PO DAILY, (Reported) Metoprolol Succinate 25 Mg Tab.er.24h, 25 MG PO DAILY, (Reported) Potassium Chloride 20 Meq Tablet.er, 40 MEQ PO DAILY Take 2 tabs (40 mEq) when taking 2 tabs (80 mg) of lasix Prescribed by: KARTHIK VAZQUEZ on 07/15/19 1446 Warfarin Sodium 10 Mg Tablet, 10 MG PO DAILY, (Reported) Patient Home Medication List Home Medication List Reviewed: Yes Physical Exam-Cardiology Physical Exam Vital Signs/I&O 07/15/19 07/15/19 07/15/19 07/15/19 07:00 08:00 09:00 12:00 Temp 37.0 36.7 Pulse 110 79 97 Resp 16 16 B/P (MAP) 113/79 (90) 110/78 (89) Pulse Ox 100 100 O2 Delivery Room Air Room Air Room Air 07/15/19 07/15/19 12:23 15:27 Temp 36.8 Pulse 93 87 Resp 16 B/P (MAP) 110/78 (89) Pulse Ox 99 O2 Delivery Room Air 07/15/19 00:00 Intake Total 1780 ml Output Total 1500 ml Balance 280 ml Capillary Refill : Less Than 3 Seconds Constitutional: appears stated age, AAO x 3; No apparent distress; well- developed, well-nourished HEENT: PERRL; No discharge; hearing is well preserved, oral hygience is good; No ulceration, No xanthelasmas are seen Neck: No carotid bruit; carotid pulses are 2 + bilaterally Respiratory: chest is bilaterally symmetric, lungs clear to auscultation Cardiovascular: regular rate-rhythm, S1 and S2, click Gastrointestinal: soft, audible bowel sounds; No spleenomegaly Rectal: deferred Extremities: normal range of motion, non-tender, normal inspection; No clubbing, No cyanosis; no lower extremity edema bilateral; No significant edema Neurologic/Psychiatric: no motor/sensory deficits, alert, normal mood/affect, oriented x 3, power is 5/5 both on sides Skin: normal color; No rash, No ulcerations Data Review Labs Laboratory Tests 07/14/19 16:35: Troponin I 0.122H 07/15/19 05:15: White Blood Count 5.6, Red Blood Count 3.89L, Hemoglobin 11.9L, Hematocrit 36L, Mean Corpuscular Volume 92, Mean Corpuscular Hemoglobin 31, Mean Corpuscular Hemoglobin Concent 33, Red Cell Distribution Width 14.1, Platelet Count 163, Mean Platelet Volume 10.1, Prothrombin Time 31.4H, INR Comment 2.9H, Sodium Level 138, Potassium Level 2.8L, Chloride Level 103, Carbon Dioxide Level 23, Anion Gap 12, Blood Urea Nitrogen 10, Creatinine 1.08, Estimat Glomerular Filtration Rate > 60, BUN/Creatinine Ratio 9, Glucose Level 122H, Calcium Level 8.4L, Corrected Calcium 8.9, Total Bilirubin 1.4H, Aspartate Amino Transf (AST/SGOT) 31, Alanine Aminotransferase (ALT/SGPT) 19, Alkaline Phosphatase 58, Total Protein 6.6, Albumin 3.4 07/15/19 12:35: Sodium Level 138, Potassium Level 3.3L, Chloride Level 102, Carbon Dioxide Level 22, Anion Gap 14, Blood Urea Nitrogen 11, Creatinine 1.09, Estimat Glomerular Filtration Rate > 60, BUN/Creatinine Ratio 10, Glucose Level 106H, Calcium Level 8.4L Microbiology 07/14/19 Blood Culture - Preliminary, Resulted No growth ECG Impression ECG Comment Sinus rhythm with left bundle branch block. A/P-Cardiology Assessment/Admission Diagnosis Acute systolic congestive heart failure, Borderline positive troponin, Aortic mechanical valve, Nonischemic cardiomyopathy, One bypass graft to RCA previously. Plan Acute systolic congestive heart failure, treat with IV Lasix. Echocardiogram. Borderline positive troponin, likely type II myocardial infarction due to acute systolic congestive heart failure. Previous coronary angiography done in [address] Jimenez shows normal left-sided arteries. Patent bypass graft to the RCA with normal RCA in the mid and distal segment. Aortic mechanical valve, on Coumadin with an INR of 3.2. Nonischemic cardiomyopathy, on lisinopril and metoprolol. One bypass graft to RCA previously. Thank you for your consultation. Please call me if you have any questions. Clemente Carr MD, FACP, FACC, FSCAI, FHRS, CCDS Interventional Cardiology Cardiac Electrophysiology Vascular Medicine and Endovascular Interventions Rebecca CARR MD Jul 14, 2019 12:58
--- NOTE | 2019-07-14 13:10 | NUR ---
PETER MOON admitted to room 410-1, with an admitting diagnosis of CHF , on 07/14/19 from via [facility], accompanied by STAFF.PETER MOON introduced to surroundings, call light, bed controls, phone, TV, temperature control, lights, meal times, smoking policy, visitor policy, side rail policy, bathrooms and showers. Patient Rights given to patient in the handbook.PETER MOON verbalizes understanding that [facility] is not responsible for the loss or damage to any personal effects or valuables that are kept in the patients posession during their hospitalization. The following Patient Care Plans were discussed with the PT: Discharge Planning, PAIN CONTROL,IV THERAPY, and TESTS AND PROCEDURES. PETER MOON verbalizes understanding of Interdisciplinary Patient Education. Patient and/or family were informed about the Rapid Response Team and its purpose.
[2019-07-14 13:19] VITALS: BP 131/87
[2019-07-14] MEDS ORDERED: LISI-552 PO (14:18)
[2019-07-14] MEDS ORDERED: FURO-124 PO (14:18)
[2019-07-14] MEDS ORDERED: POTA-51 PO (14:18)
[2019-07-14] MEDS ORDERED: WARF10TA44 PO (14:18)
--- NOTE | 2019-07-14 14:21 | NUR ---
SPOKE WITH THE PT AND WENT THRU THE EXT MED HISTORY TO COMPLETE THE MED REC POTASSIUM 20MEQ ER- THE RX SAYS 1 TAB BID HOWEVER THE PT ONLY TAKES 1 TAB DAILY OTC MEDS: NONE
[2019-07-14] MEDS ORDERED: CATHETER FLUSH 10 ML SYR IV PRN (14:30)
[2019-07-14 16:00] VITALS: BP 126/89
[2019-07-14] MEDS ORDERED: FUROSEMIDE 40 MG/4 ML INJ (LASIX) IV SCH (17:00)
--- NOTE | 2019-07-14 17:31 | History & Physical ---
HPI History of Present Illness: Pt came to ER due to swelling in legs worsening and concern for heart failure. He states that at the end of April he had an illness that was never diagnosed- it started with sinus symptoms but progressed to his chest and he also had vomiting and later cough. He has chronic cough when he tries to lie flat which he relates to his heart. He did improve some from that and in mid May had recurrence of some symptoms and was seen in clinic and had chest x-ray and was told he might have pneumonia and hiatal hernia. He was treated with antibiotics and again had some improvement, but he continues to feel as if he has something stuck in his throat near sternum and that things come back up without any si gnificant nausea. He cannot lie flat and has swelling in legs in spite of taking oral lasix. He did have an aortic valve replacement in the past and he wonders if it needs surgery again to keep him from having to come in for this issue over and over. He was in the ER some weeks ago and got IV lasix with improvement, but then it returned again. He denies fever or new cough or shortness of breath compared to his usual. Source: patient Date seen by provider: Jul 14, 2019 Time Seen by Provider: 11:00 Attending Physician Karthik Pearce MD PCP Frances Messina APRN Consult Date of Admission Jul 14, 2019 at 12:21 Home Medications Home Medications Reviewed patient Home Medication Reconciliation performed by pharmacy medication reconciliations explosive ordnance disposal technician and/or nursing. Patients Allergies have been reviewed. Allergies Coded Allergies: NKANo Known Allergies (Verified Allergy, Unknown, 03/04/06) [id number] Hx Patient Social History Alcohol Use: Occasionally Uses Recreational Drug Use: No (PAST HX) Smoking Status: Former Smoker Type Used: Cigarettes 2nd Hand Smoke Exposure: No Recent Foreign Travel: Yes Contact w/other who traveled: No Recent Hopitalizations: Yes (2019 FOR CHF AT ER NOT ADMITTED) Recent Infectious Disease Expo: No Physical Abuse Screen: No Sexual Abuse: No Past Medical History PMHx: CHF HTN GERD SurgHx: Aortic valve replacement Family Medical History Family History: Hypertension 19 FATHER 19 MOTHER Review of Systems ([facility]) Constitutional: No fever EENTM: No nose congestion Respiratory: orthopnea Cardiovascular: No chest pain Gastrointestinal: No abdominal pain, No diarrhea, No nausea; vomiting Skin: No rash Psychiatric/Neurological: No Symptoms Reported Reviewed Test Results Reviewed Test Results Lab Laboratory Tests Test 07/14/19 07:30 07/14/19 16:35 Range/Units White Blood Count 5.8 4.3-11.0 10^3/uL Red Blood Count 4.14 L 4.35-5.85 10^6/uL Hemoglobin 12.6 L 13.3-17.7 G/DL Hematocrit 38 L 40-54 % Mean Corpuscular Volume 92 80-99 FL Mean Corpuscular Hemoglobin 30 25-34 PG Mean Corpuscular Hemoglobin Concent 33 32-36 G/DL Red Cell Distribution Width 13.9 10.0-14.5 % Platelet Count 171 130-400 10^3/uL Mean Platelet Volume 10.1 7.4-10.4 FL Neutrophils (%) (Auto) 57 42-75 % Lymphocytes (%) (Auto) 33 12-44 % Monocytes (%) (Auto) 10 0-12 % Eosinophils (%) (Auto) 1 0-10 % Basophils (%) (Auto) 0 0-10 % Neutrophils # (Auto) 3.3 1.8-7.8 X 10^3 Lymphocytes # (Auto) 1.9 1.0-4.0 X 10^3 Monocytes # (Auto) 0.6 0.0-1.0 X 10^3 Eosinophils # (Auto) 0.0 0.0-0.3 10^3/uL Basophils # (Auto) 0.0 0.0-0.1 10^3/uL Erythrocyte Sedimentation Rate 7 0-15 MM/HR Prothrombin Time 33.8 H 12.2-14.7 SEC INR Comment 3.2 H 0.8-1.4 Activated Partial Thromboplast Time 47 H 24-35 SEC Sodium Level 138 135-145 MMOL/L Potassium Level 3.3 L 3.6-5.0 MMOL/L Chloride Level 104 98-107 MMOL/L Carbon Dioxide Level 24 21-32 MMOL/L Anion Gap 10 5-14 MMOL/L Blood Urea Nitrogen 11 7-18 MG/DL Creatinine 1.19 0.60-1.30 MG/DL Estimat Glomerular Filtration Rate > 60 BUN/Creatinine Ratio 9 Glucose Level 92 70-105 MG/DL Lactic Acid Level 1.09 0.50-2.00 MMOL/L Calcium Level 9.0 8.5-10.1 MG/DL Corrected Calcium 9.1 8.5-10.1 MG/DL Magnesium Level 1.7 1.6-2.4 MG/DL Total Bilirubin 1.2 H 0.1-1.0 MG/DL Aspartate Amino Transf (AST/SGOT) 39 H 5-34 U/L Alanine Aminotransferase (ALT/SGPT) 24 0-55 U/L Alkaline Phosphatase 67 40-136 U/L Lactate Dehydrogenase 509 H 125-220 U/L Troponin I 0.125 H 0.122 H <0.028 NG/ML C-Reactive Protein High Sensitivity 1.22 H 0.00-0.50 MG/DL B-Type Natriuretic Peptide 886.0 H <100.0 PG/ML Total Protein 7.6 6.4-8.2 GM/DL Albumin 3.9 3.2-4.5 GM/DL Procalcitonin 0.05 <0.10 NG/ML Thyroid Stimulating Hormone (TSH) 1.20 0.35-4.94 UIU/ML Radiology CXR 07/13: Impression: Stable chest x-ray exam with no interval radiographic evidence of acute cardi opulmonary process. The stable mild opacities in both lung bases may be related to atelectasis and/or scarring. Physical Exam-([facility]) Physical Exam Vital Signs VS - Last 72 Hours, by Label 07/14/19 07/14/19 07/14/19 07/14/19 07:27 12:56 13:19 13:43 Temp 36.9 37.1 Pulse 96 88 94 92 Resp 18 20 18 B/P (MAP) 127/103 (111) 131/85 131/87 Pulse Ox 97 98 94 O2 Delivery Room Air Room Air 07/14/19 07/14/19 13:59 16:00 Temp 37.3 Pulse 94 Resp 18 B/P (MAP) 126/89 (101) Pulse Ox 98 98 O2 Delivery Room Air Room Air Capillary Refill : Less Than 3 Seconds General Appearance: WD/WN, no apparent distress Respiratory: lungs clear, normal breath sounds Cardiovascular: tachycardia, systolic murmur Gastrointestinal: normal bowel sounds, non tender, soft Extremities: pedal edema (2+ to thighs) Neurologic/Psychiatric: alert, normal mood/affect Skin: normal color, warm/dry Assessment/Plan Assessment/Plan Admission Status: Observation (1) Acute heart failure Status: Acute Assessment & Plan: Cardiology consulted. Given 40 mg IV lasix in ER, will continue 40 mg IV BID for now. Echo ordered. Qualifiers: Qualified Codes: I50.9 - Heart failure, unspecified (2) Hypertension Status: Chronic Qualifiers: Qualified Codes: I10 - Essential (primary) hypertension (3) Esophageal dysphagia Assessment & Plan: Discussed may need EGD if he is not tolerating intake well enough, likely outpatient. (4) H/O mechanical aortic valve replacement Status: Chronic Assessment & Plan: Continue home coumadin. (5) Elevated troponin Assessment & Plan: Suspect related to CHF and mechanical valve, no ST elevation, Cardiology consulted, appreciate recommendations. Repeat ordered. (6) Elevated liver enzymes Assessment & Plan: Labs from clinic earlier this month with normal LFTs, but were elevated in ER prior. Possibly due to congestion, recheck in the am. (7) Hypokalemia Assessment & Plan: Replace and follow. (8) DVT prophylaxis Assessment & Plan: On coumadin. Clinical Quality Measures DVT/VTE Risk/Contraindication: Risk Factor Score Per Nursin RFS Level Per Nursing on Admit: 4+=Very High KARTHIK PEARCE MD Jul 14, 2019 17:31
[2019-07-14] MEDS: FUROSEMIDE 40 MG/4 ML INJ (LASIX) IVP SCH (18:09)
[2019-07-14] MEDS: CATHETER FLUSH 10 ML SYR IV SCH (18:10)
[2019-07-14] MEDS ORDERED: warFARin 10 MG (COUMADIN) TAB PO SCH (19:00)
[2019-07-14] MEDS ORDERED: lisINopril 20 MG (PRINIVIL) TABLET PO SCH (19:00)
[2019-07-14 20:00] VITALS: BP 124/79
[2019-07-15 00:02] VITALS: BP 117/83
[2019-07-15 04:05] VITALS: BP 111/77
[2019-07-15 05:53] LABS: HEMOGLOBIN 11.9 G/DL (13.3-17.7); MEAN PLATELET VOLUME 10.1 FL (7.4-10.4); RED CELL DISTRIBUTION WIDTH 14.1 % (10.0-14.5); WHITE BLOOD COUNT 5.6 10^3/uL (4.3-11.0)
[2019-07-15] MEDS: FUROSEMIDE 40 MG/4 ML INJ (LASIX) IVP SCH (05:57)
[2019-07-15] MEDS: CATHETER FLUSH 10 ML SYR IV SCH ×2 (05:58→14:13)
[2019-07-15 06:08] LABS: ALANINE AMINOTRANSFERASE 19 U/L (0-55); ALBUMIN 3.4 GM/DL (3.2-4.5); ALKALINE PHOSPHATASE 58 U/L (40-136); BILIRUBIN,TOTAL 1.4 MG/DL (0.1-1.0); BUN/CREATININE RATIO 9; CALCIUM 8.4 MG/DL (8.5-10.1); CARBON DIOXIDE 23 MMOL/L (21-32); CHLORIDE 103 MMOL/L (98-107); CREATININE SERUM 1.08 MG/DL (0.60-1.30); GFR ESTIMATED > 60; GLUCOSE 122 MG/DL (70-105); POTASSIUM 2.8 MMOL/L (3.6-5.0); SODIUM 138 MMOL/L (135-145); TOTAL PROTEIN 6.6 GM/DL (6.4-8.2)
[2019-07-15 06:20] LABS: INR 2.9 (0.8-1.4); PROTHROMBIN TIME PATIENT 31.4 SEC (12.2-14.7)
[2019-07-15 08:00] VITALS: BP 113/79
[2019-07-15] MEDS ORDERED: KCL 20 MEQ TAB (K-DUR) PO NR ×3 (08:45→13:55)
[2019-07-15] MEDS ORDERED: POTASSIUM CL 10MEQ/50ML IVPB 50 ML IV SCH (08:45)
[2019-07-15] MEDS ORDERED: warFARin 10 MG (COUMADIN) TAB PO SCH (09:00)
[2019-07-15] MEDS ORDERED: lisINopril 20 MG (PRINIVIL) TABLET PO SCH (09:00)
--- NOTE | 2019-07-15 11:25 | NUR ---
CM/SS: Visited with pt as to plan for discharge Plan: Pt will be discharged to home when deemed appropriate Summary: Pt request to be discharged to home as soon as possible, as he is needing to go to work today at 3:00pm. he works at the [employer]. This worker shares with him, she is unsure if he will be able to leave by that time on today. 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 He currently has no insurance and has been living off his savings. He reports he has had his job at the [employer] the last three months. Pt reports he will be compliant with any outpatient appointments and is encouraged to follow up with [employer]. Pt seems to have lots of questions about he condition and just wants to know the things going on with his health, is it anything he needs to worry about or is it something of concern. Pt is encouraged to talk with the heart doctor when he rounds later today. Pt intends to do so. Pt is reminded that the goal will be to get him out of here in time, however there is not guarantees that it can happen like that. He verbalizes understanding.
[2019-07-15 12:00] VITALS: BP 110/78
[2019-07-15 13:00] LABS: BUN/CREATININE RATIO 10; CALCIUM 8.4 MG/DL (8.5-10.1); CARBON DIOXIDE 22 MMOL/L (21-32); CHLORIDE 102 MMOL/L (98-107); CREATININE SERUM 1.09 MG/DL (0.60-1.30); GFR ESTIMATED > 60; GLUCOSE 106 MG/DL (70-105); POTASSIUM 3.3 MMOL/L (3.6-5.0); SODIUM 138 MMOL/L (135-145)
--- NOTE | 2019-07-15 14:15 | NUR ---
Pastoral care visit.
[2019-07-15] MEDS ORDERED: FURO-124 PO (14:46)
[2019-07-15] MEDS ORDERED: POTA-51 PO (14:46)
--- NOTE | 2019-07-15 14:50 | Discharge Summary ---
Discharge Summary Hospital Course Problems/Diagnosis: (1) Acute heart failure Status: Acute Assessment & Plan: Cardiology consulted. Given 40 mg IV lasix in ER, will continue 40 mg IV BID for now. Echo ordered. 07/14- Cardiology increased lasix to 80 mg IV which he received twice, echo showed EF 15-20%, patient declined Lifevest due to cost concerns, discharged with plan to take lasix PO 80 mg daily for 3 days, then back to original home dose of 40 mg daily. Qualifiers: Qualified Codes: I50.9 - Heart failure, unspecified (2) Hypertension Status: Chronic Qualifiers: Qualified Codes: I10 - Essential (primary) hypertension (3) Esophageal dysphagia Assessment & Plan: Discussed may need EGD outpatient. (4) H/O mechanical aortic valve replacement Status: Chronic Assessment & Plan: Continue home coumadin. (5) Elevated troponin Assessment & Plan: Suspect related to CHF and mechanical valve, no ST elevation, Cardiology consulted, appreciate recommendations. Repeat ordered and trended down. (6) Elevated liver enzymes Assessment & Plan: Labs from clinic earlier this month with normal LFTs, but were elevated in ER prior. Possibly due to congestion, recheck in the am. 07/14 bilirubin remained elevated (1.4 on d/c), AST/ALT normalized. (7) Hypokalemia Assessment & Plan: Replace and follow. Increased replacement to 40 mEq daily while on higher dose lasix. Will need repeat lab at follow up visit/in 3-5 days. Hospital Course Date of Admission: Jul 14, 2019 at 12:21 Admission Diagnosis : Family Physician/Provider: Frances Messina APRN Date of Discharge: 07/15/19 Discharge Diagnosis: See problem list Hospital Course: See problem list Labs and Pending Lab Test: Laboratory Tests 07/14/19 16:35: Troponin I 0.122H 07/15/19 05:15: White Blood Count 5.6, Red Blood Count 3.89L, Hemoglobin 11.9L, Hematocrit 36L, Mean Corpuscular Volume 92, Mean Corpuscular Hemoglobin 31, Mean Corpuscular Hemoglobin Concent 33, Red Cell Distribution Width 14.1, Platelet Count 163, Mean Platelet Volume 10.1, Prothrombin Time 31.4H, INR Comment 2.9H, Sodium Level 138, Potassium Level 2.8L, Chloride Level 103, Carbon Dioxide Level 23, Anion Gap 12, Blood Urea Nitrogen 10, Creatinine 1.08, Estimat Glomerular Filtration Rate > 60, BUN/Creatinine Ratio 9, Glucose Level 122H, Calcium Level 8.4L, Corrected Calcium 8.9, Total Bilirubin 1.4H, Aspartate Amino Transf (AST/SGOT) 31, Alanine Aminotransferase (ALT/SGPT) 19, Alkaline Phosphatase 58, Total Protein 6.6, Albumin 3.4 07/15/19 12:35: Sodium Level 138, Potassium Level 3.3L, Chloride Level 102, Carbon Dioxide Level 22, Anion Gap 14, Blood Urea Nitrogen 11, Creatinine 1.09, Estimat Glomerular Filtration Rate > 60, BUN/Creatinine Ratio 10, Glucose Level 106H, Calcium Level 8.4L Home Meds Active Reported Potassium Chloride 20 Meq Tablet.er 20 Meq PO DAILY Warfarin Sodium 10 Mg Tablet 10 Mg PO DAILY Lisinopril 20 Mg Tablet 20 Mg PO DAILY Lasix (Furosemide) 40 Mg Tablet 40 Mg PO DAILY Metoprolol Succinate 25 Mg Tab.er.24h 25 Mg PO DAILY Amlodipine Besylate 10 Mg Tablet 10 Mg PO DAILY Assessment/Pt DC Instructions Follow up with Frances Messina APRN on 07/21 at 9 am. You should have your labs (BMP) checked prior to that, call the office for orders to have drawn in the next 3-5 days. Discharge Diet: Low Sodium Diet, Cardiac Diet Activity as Tolerated: Yes Orders-Post D/C & Referrals Pneu Vac Indicated: Yes Discharge Physical Examination Allergies: Coded Allergies: NKANo Known Allergies (Verified Allergy, Unknown, 03/04/06) General Appearance: No Apparent Distress, WD/WN Respiratory: Lungs Clear, Normal Breath Sounds Cardiovascular: Regular Rate, Rhythm, Systolic Murmur (mechanical valve click) Extremity: Pedal Edema (trace to 1+) Skin: Normal Color, Warm/Dry Neurologic/Psychiatric: Alert, Normal Mood/Affect Clinical Quality Measures DVT/VTE Risk/Contraindication: Risk Factor Score Per Nursin RFS Level Per Nursing on Admit: 4+=Very High KARTHIK VAZQUEZ MD Jul 15, 2019 14:50
[2019-07-15 15:27] VITALS: BP 110/78
[2019-07-15] MEDS ORDERED: morphine INJ 4 MG/ML 1 ML (VIAL/SYRINGE) IVP PRN (16:00)
--- NOTE | 2019-07-15 16:20 | NUR ---
In room with Dr. Rosas, patient refused life vest, would maybe want to look into having a defibrillator in 6 months. Patient was educated on possibility of getting VT and with not having above recommendation. Patient verbalized understanding.
--- NOTE | 2019-07-15 16:43 | Cardiology Progress Note ---
Cardiology SOAP Progress Note Subjective: Significantly improved shortness of breath. Objective: I&O/Vital Signs 07/15/19 07/15/19 07/15/19 07/15/19 07:00 08:00 09:00 12:00 Temp 37.0 36.7 Pulse 110 79 97 Resp 16 16 B/P (MAP) 113/79 (90) 110/78 (89) Pulse Ox 100 100 O2 Delivery Room Air Room Air Room Air 07/15/19 07/15/19 12:23 15:27 Temp 36.8 Pulse 93 87 Resp 16 B/P (MAP) 110/78 (89) Pulse Ox 99 O2 Delivery Room Air 07/15/19 00:00 Intake Total 1780 ml Output Total 1500 ml Balance 280 ml Weight (Pounds): 210 Weight (Ounces): 0.0 Weight (Calculated Kilograms): [id number] Constitutional: appears stated age, AAO x 3; No apparent distress; well- developed, well-nourished Respiratory: chest is bilaterally symmetric, lungs clear to auscultation Cardiovascular: regular rate-rhythm, S1 and S2, click Gastrointestional: soft, audible bowel sounds; No spleenomegaly Extremities: normal range of motion, non-tender, normal inspection; No clubbing, No cyanosis; no lower extremity edema bilateral; No significant edema Neurologic/Psychiatric: no motor/sensory deficits, alert, normal mood/affect, oriented x 3, power is 5/5 both on sides Skin: normal color; No rash, No ulcerations Results/Procedures: Labs Laboratory Tests 07/15/19 05:15: White Blood Count 5.6, Red Blood Count 3.89L, Hemoglobin 11.9L, Hematocrit 36L, Mean Corpuscular Volume 92, Mean Corpuscular Hemoglobin 31, Mean Corpuscular Hemoglobin Concent 33, Red Cell Distribution Width 14.1, Platelet Count 163, Mean Platelet Volume 10.1, Prothrombin Time 31.4H, INR Comment 2.9H, Sodium Level 138, Potassium Level 2.8L, Chloride Level 103, Carbon Dioxide Level 23, Anion Gap 12, Blood Urea Nitrogen 10, Creatinine 1.08, Estimat Glomerular Filtration Rate > 60, BUN/Creatinine Ratio 9, Glucose Level 122H, Calcium Level 8.4L, Corrected Calcium 8.9, Total Bilirubin 1.4H, Aspartate Amino Transf (AST/SGOT) 31, Alanine Aminotransferase (ALT/SGPT) 19, Alkaline Phosphatase 58, Total Protein 6.6, Albumin 3.4 07/15/19 12:35: Sodium Level 138, Potassium Level 3.3L, Chloride Level 102, Carbon Dioxide Level 22, Anion Gap 14, Blood Urea Nitrogen 11, Creatinine 1.09, Estimat Glomerular Filtration Rate > 60, BUN/Creatinine Ratio 10, Glucose Level 106H, Calcium Level 8.4L Microbiology 07/14/19 Blood Culture - Preliminary, Resulted No growth A/P: Assessment/Dx: Acute systolic congestive heart failure, Borderline positive troponin, Aortic mechanical valve, Nonischemic cardiomyopathy, One bypass graft to RCA previously. Plan: Acute systolic congestive heart failure, treat with IV Lasix. Significantly improved. Echocardiogram done 07/14/2019 shows severe systolic dysfunction with an EF of 15-20 percent. Prostatic valve in the aortic position is working well with a mean gradient of 11 mmHg. No wall motion abnormalities. Borderline positive troponin, likely type II myocardial infarction due to acute systolic congestive heart failure. Previous coronary angiography done in [address] Jimenez shows normal left-sided arteries. Patent bypass graft to the RCA with normal RCA in the mid and distal segment. Aortic mechanical valve, on Coumadin with an INR of 3.2. INR today is 2.9. Patient will be discharged to follow-up for INR checks at the [facility]. Nonischemic cardiomyopathy, on lisinopril and metoprolol. I briefly discussed Entresto but patient doesn't have insurance and tells me that he won't be able to afford it. I discussed about severe LV systolic dysfunction and the risk of developing ventricular arrhythmias which could be fatal. I recommended a LifeVest but the patient refused. I discussed with him at length and that if he develops ventricular tachycardia or ventricular fibrillation he could . The patient understands but does not want to have a LifeVest. I also discussed with him that we continue to treat him for 3 months with optimal medical therapy and if his EF is still below 30-35 percent he could be a candidate for an internal defibrillator. The patient wants me to defer any internal defibrillator/ICD till fall 2019. He understands the risk associated with not implanting an ICD. He understands and tells me that he does not have insurance therefore cannot afford it and he is planning to get a new job in fall and hopefully will get insurance and may then consider the procedure. One bypass graft to RCA previously. Okay to discharge on Coumadin, lisinopril, metoprolol, potassium, Lasix 80 mg for 3 days followed by electrolytes which will be done at the [facility]. Thank you for your consultation. Please call me if you have any questions. Clemente Carr MD, FACP, FACC, FSCAI, FHRS, CCDS Interventional Cardiology Cardiac Electrophysiology Vascular Medicine and Endovascular Interventions Focused Exam Lactate Level 07/14/19 07:30: Lactic Acid Level 1.09 Rebecca CARR MD Jul 15, 2019 16:43
== END 2019-07-15 17:32 | disposition home or self-care (01) ==
LOC: EDUNIT# 07:14 → ER 07:15 → 4TH 12:21
PROVIDERS: ADMIT Family Medicine; ATTEND Family Medicine
DX: I11.0 Hypertensive heart disease with heart failure (principal); I50.21 Acute systolic (congestive) heart failure; I21.A1 Myocardial infarction type 2; I42.9 Cardiomyopathy, unspecified; R13.10 Dysphagia, unspecified; E87.6 Hypokalemia; Z95.2 Presence of prosthetic heart valve; Z95.1 Presence of aortocoronary bypass graft; Z87.01 Personal history of pneumonia (recurrent); Z87.891 Personal history of nicotine dependence; Z79.01 Long term (current) use of anticoagulants
CPT/HCPCS: 36415; 71045; 80048; 80053; 82728; 83605; 83615; 83735; 83880; 84145; 84443; 84484; 85025; 85027; 85610; 85652; 85730; 86141; 87040; 93005; 93041; 93306; G0378

== ENCOUNTER 2019-08-25 08:11 | Inpatient (IN) | payer OTHER ==
[~2019-08-25] VITALS: Ht 180 cm; Wt 87.0 kg
[~2019-08-25 08:11] MED LIST changes: +FURO-124 PO
--- NOTE | 2019-08-25 08:21 | ED General ---
General Stated Complaint: LEG/FEET SWELLING;SINUS INFECTION History of Present Illness Date Seen by Provider: August 25, 2019 Time Seen by Provider: 08:16 Initial Comments 44-year-old male presents with bilateral lower leg swelling. Patient has a history of congestive heart failure. He was hospitalized about 2 months ago for similar symptoms. He reports that every since he had about 2 months ago his legs he'll continue to swell. Patient reports that he had an appointment with Dr. Montelongo at 11 AM today but states the pain was too bad. Patient also has some mild shortness of breath. He reports a "sinus infection" with pressure in his right side of his face. Reports that he's had previous sinus infections at present like this. Patient denies any fevers or chills. He does have some shortness of breath with exertion is chronic. He reports chest tightness but no chest pain. Patient states she's been taking Lasix without relief. Allergies and Home Medications Allergies Coded Allergies: Beka Known Allergies (Verified Allergy, Unknown, 03/04/06) Home Medications Amlodipine Besylate 10 Mg Tablet, 10 MG PO DAILY, (Reported) Furosemide 40 Mg Tablet, 40 MG PO DAILY Take 2 tabs (80 mg) daily for 3 days, then go back to 40 mg daily. Prescribed by: KARTHIK VAZQUEZ on 07/15/19 1446 Lisinopril 20 Mg Tablet, 20 MG PO DAILY, (Reported) Metoprolol Succinate 25 Mg Tab.er.24h, 25 MG PO DAILY, (Reported) Potassium Chloride 20 Meq Tablet.er, 40 MEQ PO DAILY Take 2 tabs (40 mEq) when taking 2 tabs (80 mg) of lasix Prescribed by: KARTHIK VAZQUEZ on 07/15/19 1446 Warfarin Sodium 10 Mg Tablet, 10 MG PO DAILY, (Reported) Patient Home Medication List Home Medication List Reviewed: Yes Review of Systems Review of Systems Constitutional: No chills, No fever EENTM: see HPI Respiratory: dyspnea on exertion Cardiovascular: see HPI; No chest pain; edema Gastrointestinal: no symptoms reported Genitourinary: no symptoms reported Musculoskeletal: see HPI Skin: no symptoms reported Psychiatric/Neurological: No Symptoms Reported Past Lzldywh-Akcwnw-Rsupgj Hx Past Med/Social Hx: Reviewed Nursing Past Med/Soc Hx Patient Social History Type Used: Cigarettes Former Smoker, Quit: May 05, 2019 2nd Hand Smoke Exposure: No Recent Foreign Travel: No Contact w/Someone Who Travel: No Recent Hopitalizations: Yes (2019 FOR CHF AT ER NOT ADMITTED) Seasonal Allergies Seasonal Allergies: No Past Medical History Surgeries: Yes Cardiac, Valve Replacement Respiratory: Yes (SLEEP APNEA) Currently Using CPAP: Yes Cardiac: Yes (CHF) Neurological: No Genitourinary: No Gastrointestinal: No (FEELS LIKE FOOD STUCK IN THRAOT) Musculoskeletal: Yes (ARTHRITIS IN LEFT KNEE) Arthritis Endocrine: No HEENT: No Cancer: No Psychosocial: No Integumentary: No Family Medical History Hypertension 19 FATHER 19 MOTHER Physical Exam Vital Signs Capillary Refill : Height, Weight, BMI Height: 5'10.00" Weight: 210lbs. 0.0oz. 95.060196qp; 28.08 BMI Method:Stated General Appearance: No Apparent Distress HEENT: PERRL/EOMI Neck: Non Tender, Supple Respiratory: No Accessory Muscle Use, No Respiratory Distress, Decreased Breath Sounds (mild diffuse) Cardiovascular: Regular Rate, Rhythm Gastrointestinal: Non Tender, Soft Extremity: Pedal Edema, Swelling (3+) Neurologic/Psychiatric: Alert, Oriented x3, No Motor/Sensory Deficits, Normal Mood/Affect, supervisor blasting II-XII Norm as Tested Skin: Normal Color, Warm/Dry Progress/Results/Core Measures Suspected Sepsis SIRS Temperature: Pulse: Respiratory Rate: Laboratory Tests 08/25/19 08:28: White Blood Count 4.6 Blood Pressure / Mean: Laboratory Tests 08/25/19 08:28: Creatinine 1.61H, Platelet Count 220, Total Bilirubin 1.2H Results/Orders Lab Results Laboratory Tests Test 08/25/19 08:28 Range/Units White Blood Count 4.6 4.3-11.0 10^3/uL Red Blood Count 4.59 4.35-5.85 10^6/uL Hemoglobin 13.5 13.3-17.7 G/DL Hematocrit 41 40-54 % Mean Corpuscular Volume 89 80-99 FL Mean Corpuscular Hemoglobin 29 25-34 PG Mean Corpuscular Hemoglobin Concent 33 32-36 G/DL Red Cell Distribution Width 14.6 H 10.0-14.5 % Platelet Count 220 130-400 10^3/uL Mean Platelet Volume 9.6 7.4-10.4 FL Neutrophils (%) (Auto) 41 L 42-75 % Lymphocytes (%) (Auto) 47 H 12-44 % Monocytes (%) (Auto) 11 0-12 % Eosinophils (%) (Auto) 1 0-10 % Basophils (%) (Auto) 0 0-10 % Neutrophils # (Auto) 1.9 1.8-7.8 X 10^3 Lymphocytes # (Auto) 2.2 1.0-4.0 X 10^3 Monocytes # (Auto) 0.5 0.0-1.0 X 10^3 Eosinophils # (Auto) 0.0 0.0-0.3 10^3/uL Basophils # (Auto) 0.0 0.0-0.1 10^3/uL Sodium Level 134 L 135-145 MMOL/L Potassium Level 3.5 L 3.6-5.0 MMOL/L Chloride Level 102 98-107 MMOL/L Carbon Dioxide Level 19 L 21-32 MMOL/L Anion Gap 13 5-14 MMOL/L Blood Urea Nitrogen 26 H 7-18 MG/DL Creatinine 1.61 H 0.60-1.30 MG/DL Estimat Glomerular Filtration Rate 57 BUN/Creatinine Ratio 16 Glucose Level 111 H 70-105 MG/DL Calcium Level 9.1 8.5-10.1 MG/DL Corrected Calcium 9.0 8.5-10.1 MG/DL Magnesium Level 1.8 1.6-2.4 MG/DL Total Bilirubin 1.2 H 0.1-1.0 MG/DL Aspartate Amino Transf (AST/SGOT) 63 H 5-34 U/L Alanine Aminotransferase (ALT/SGPT) 43 0-55 U/L Alkaline Phosphatase 98 40-136 U/L Troponin I 0.363 *H <0.028 NG/ML B-Type Natriuretic Peptide 1215.0 H <100.0 PG/ML Total Protein 8.5 H 6.4-8.2 GM/DL Albumin 4.1 3.2-4.5 GM/DL My Orders Orders - YESSENIA THOMASVOR L DO BNP (08/25/19 08:21) Cbc With Automated Diff (08/25/19 08:21) Comprehensive Metabolic Panel (08/25/19 08:21) Magnesium (08/25/19 08:21) Troponin I (08/25/19 08:21) Chest Pa/Lat (2 View) (08/25/19 08:21) Ed Iv/Invasive Line Start (08/25/19 08:21) Ekg Tracing (08/25/19 08:21) Furosemide Injection (Lasix Injection) (08/25/19 08:30) Acetaminophen Tablet (Tylenol Tablet) (08/25/19 09:16) Amoxicillin Capsule (Polymox Capsule) (08/25/19 09:16) Medications Given in ED Current Medications Medications Dose Ordered Sig/Edith Route Start Time Stop Time Status Last Admin Dose Admin Furosemide 80 mg ONCE ONCE IVP 08/25/19 08:30 08/25/19 08:31 DC 08/25/19 08:50 80 MG Vital Signs/I&O Capillary Refill : ECG Initial ECG Impression Date: August 25, 2019 Initial ECG Impression Time: 08:33 Initial ECG Rate: 97 Initial ECG Comparisson: Unchanged Comment Atrial rhythm. Flutter versus other atrial rhythm. Compared to EKG on 07/14/19 shows no significant change. Diagnostic Imaging Diagonstic Imaging: Xray Plain Films/CT/US/NM/MRI: chest Comments [facility], [place] NAME: PETER MOON [facility] REC#: [id number] PT STATUS: REG ER : 1975 PHYSICIAN: GALDINO THOMAS DO ADMIT DATE: 08/25/19/ER Draft Date of Exam:08/25/19 CHEST PA/LAT (2 VIEW) INDICATION: Leg swelling and sinus infection. TIME OF EXAM: 9:10 AM Correlation is made with prior chest from 07/14/2019. The heart remains enlarged but stable. There are changes of median sternotomy and CABG. There does appear to be some minimal infiltrate or atelectasis in the right base as well as a small right effusion. The left lung is clear. Pulmonary vascularity is unremarkable. There is no pneumothorax. IMPRESSION: 1. Stable cardiomegaly and status post CABG. 2. Minimal right basilar infiltrate or atelectasis and small right effusion. Departure Communication (Admissions) Time/Spoke to Admitting Phy: 09:30 Dr. Kaye will accept admission with consultation to Dr. Montelongo. Patient to be admitted for cardiac stepdown. Time/Spoke to Consulting Phy: 09:[address] Montelongo. He would like patient admitted with IV Lasix. Patient to be admitted to the hospitalist. Impression Primary Impression: Elevated troponin Additional Impression: CHF exacerbation Qualified Codes: I50.9 - Heart failure, unspecified Disposition: ADMITTED INPATIENT Condition: Stable Admissions Decision to Admit Reason: Admit from ER (General) Decision to Admit/Date: August 25, 2019 Time/Decision to Admit Time: 09:00 Departure-Patient Inst. Referrals: DEREK CASTELLON MD (PCP/Family) Primary Care Physician GALDINO THOMAS DO August 25, 2019 08:21
[2019-08-25] MEDS ORDERED: FUROSEMIDE 40 MG/4 ML INJ (LASIX) IVP ONE (08:30)
[2019-08-25 08:37] LABS: BASOPHILS % (AUTO) 0 % (0-10); EOSINOPHILS % (AUTO) 1 % (0-10); HEMATOCRIT 41 % (40-54); HEMOGLOBIN 13.5 G/DL (13.3-17.7); LYMPHOCYTES # (AUTO) 2.2 X 10^3 (1.0-4.0); LYMPHOCYTES % (AUTO) 47 % (12-44); MEAN CORPUSCULAR HEMOGLOBIN 29 PG (25-34); MEAN CORPUSCULAR HGB CONC 33 G/DL (32-36); MEAN CORPUSCULAR VOLUME 89 FL (80-99); MEAN PLATELET VOLUME 9.6 FL (7.4-10.4); MONOCYTES # (AUTO) 0.5 X 10^3 (0.0-1.0); MONOCYTES % (AUTO) 11 % (0-12); NEUTROPHILS # (AUTO) 1.9 X 10^3 (1.8-7.8); NEUTROPHILS % (AUTO) 41 % (42-75); PLATELET COUNT 220 10^3/uL (130-400); RED CELL DISTRIBUTION WIDTH 14.6 % (10.0-14.5); WHITE BLOOD COUNT 4.6 10^3/uL (4.3-11.0)
[2019-08-25 08:49] LABS: ALBUMIN 4.1 GM/DL (3.2-4.5)
[2019-08-25 08:50] LABS: POTASSIUM 3.5 MMOL/L (3.6-5.0)
[2019-08-25 08:51] LABS: CALCIUM 9.1 MG/DL (8.5-10.1)
[2019-08-25 08:52] LABS: TOTAL PROTEIN 8.5 GM/DL (6.4-8.2)
[2019-08-25 08:55] LABS: BILIRUBIN,TOTAL 1.2 MG/DL (0.1-1.0)
[2019-08-25 08:56] LABS: CREATININE SERUM 1.61 MG/DL (0.60-1.30)
[2019-08-25 08:58] LABS: MAGNESIUM 1.8 MG/DL (1.6-2.4)
[2019-08-25] MEDS ORDERED: ACETAMINOPHEN 500 MG TAB (TYLENOL) PO STA (09:16)
[2019-08-25] MEDS ORDERED: AMOXICILLIN 500 MG (POLYMOX) CAP PO STA (09:16)
--- NOTE | 2019-08-25 09:16 | Diagnostic Imaging Report ---
INDICATION: Leg swelling and sinus infection. TIME OF EXAM: 9:10 AM Correlation is made with prior chest from 07/14/2019. The heart remains enlarged but stable. There are changes of median sternotomy and CABG. There does appear to be some minimal infiltrate or atelectasis in the right base as well as a small right effusion. The left lung is clear. Pulmonary vascularity is unremarkable. There is no pneumothorax. IMPRESSION: 1. Stable cardiomegaly and status post CABG. 2. Minimal right basilar infiltrate or atelectasis and small right effusion. Dictated by: Dictated on workstation # [id number]
--- OUTSIDE RECORDS SUMMARY | 2019-08-25 09:31 | XMS REPORT | Continuity of Care Document ---
Demographics Preferred Language Unknown Marital Status Unknown Mandaeism Affiliation Unknown Race Unknown Ethnic Group Unknown Author Organization Unknown Address Unknown Phone Unavailable Allergies Active Description Code Type Severity Reaction Onset Reported/Identified Relationship to Patient Clinical Status Yes NKANo Known Allergies NKA Miscellaneous Allergy Unknown N/A 03/04/2006 Medications There is no data. 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 33 OBSTRUCTIVE SLEEP APNEA (ADULT) (PEDIATR 10/18/2016 DANNA RODRIGUEZ MD Ot I08. 3 COMB RHEUMATIC DISORD OF MITRAL, AORTIC 10/18/2016 DANNA RODRIGUEZ MD Ot R93. 1 ABNORMAL FINDINGS ON DX IMAGING OF HEART 10/18/2016 DANNA RODRIGUEZ MD Ot Z95. 2 PRESENCE OF PROSTHETIC HEART VALVE 11/01/2016 DANNA RODRIGUEZ MD Ot G47. 33 OBSTRUCTIVE SLEEP APNEA (ADULT) (PEDIATR 11/01/2016 DANNA RODRIGUEZ MD Ot I08. 3 COMB RHEUMATIC DISORD OF MITRAL, AORTIC 11/01/2016 DANNA RODRIGUEZ MD Ot R93. 1 ABNORMAL FINDINGS ON DX IMAGING OF HEART 11/01/2016 DANNA RODRIGUEZ MD Ot Z95. 2 PRESENCE OF PROSTHETIC HEART VALVE 11/24/2016 FREDY ESQUEDA Ot E78.5 HYPERLIPIDEMIA, UNSPECIFIED 11/24/2016 FREDY ESQUEDA Ot G47.33 OBSTRUCTIVE SLEEP APNEA (ADULT) (PEDIATR 11/24/2016 FREDY ESQUEDA Ot I10 ESSENTIAL (PRIMARY) HYPERTENSION 11/24/2016 FREDY ESQUEDA Ot I25.10 ATHSCL HEART DISEASE OF [place] CORONARY 11/24/2016 FREDY ESQUEDA Ot I25.82 CHRONIC TOTAL OCCLUSION OF CORONARY [place] 11/24/2016 FREDY ESQUEDA Ot I34.0 NONRHEUMATIC MITRAL (VALVE) INSUFFICIENC 11/24/2016 FREDY ESQUEDA Ot I50.22 CHRONIC SYSTOLIC (CONGESTIVE) HEART FAIL 11/24/2016 FREDY ESQUEDA Ot I69.398 OTHER SEQUELAE OF CEREBRAL INFARCTION 11/24/2016 FREDY ESQUEDA Ot I71.2 THORACIC AORTIC ANEURYSM, WITHOUT RUPTUR 11/24/2016 FREDY ESQUEDA Ot R07.89 OTHER CHEST PAIN 11/24/2016 FREDY ESQUEDA Ot R20.0 ANESTHESIA OF SKIN 11/24/2016 FREDY ESQUEDA Ot Z72.0 TOBACCO USE 11/24/2016 FREDY ESQUEDA Ot Z79.01 SHELTER (CURRENT) USE OF ANTICOAGULANT 11/24/2016 FREDY ESQUEDA Ot Z79.899 OTHER PROVIDER SERVICE REPRESENTATIVE (CURRENT) DRUG THERAPY 11/24/2016 FREDY ESQUEDA Ot Z95.1 PRESENCE OF AORTOCORONARY BYPASS GRAFT 11/24/2016 FREDY ESQUEDA Ot Z95.2 PRESENCE OF PROSTHETIC HEART VALVE 05/23/2019 CRISTINA HINOJOSA MD Ot E87.6 HYPOKALEMIA 05/23/2019 CRISTINA HINOJOSA MD Ot I50.9 HEART FAILURE, UNSPECIFIED 05/23/2019 CRISTINA HINOJOSA MD Ot R07.89 OTHER CHEST PAIN 05/23/2019 CRISTINA HINOJOSA MD Ot Z79.01 SHELTER (CURRENT) USE OF ANTICOAGULANT 05/23/2019 CRISTINA HINOJOSA MD Ot Z87.891 PERSONAL HISTORY OF NICOTINE DEPENDENCE 05/23/2019 CRISTINA HINOJOSA MD Ot 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 33 OBSTRUCTIVE SLEEP APNEA (ADULT) (PEDIATR 05/23/2019 DANNA RODRIGUEZ MD, Ot I08. 3 COMB RHEUMATIC DISORD OF MITRAL, AORTIC 05/23/2019 DANNA RODRIGUEZ MD, Ot R93. 1 ABNORMAL FINDINGS ON DX IMAGING OF HEART 05/23/2019 DANNA RODRIGUEZ MD, Ot Z95. 2 PRESENCE OF PROSTHETIC HEART VALVE 05/23/2019 FREDY ESQUEDA Ot G47.33 OBSTRUCTIVE SLEEP APNEA (ADULT) (PEDIATR 05/23/2019 FREDY ESQUEDA Ot I34.0 NONRHEUMATIC MITRAL (VALVE) INSUFFICIENC 05/23/2019 FREDY ESQUEDA Ot I35.1 NONRHEUMATIC AORTIC (VALVE) INSUFFICIENC 05/23/2019 FREDY ESQUEDA Ot R20.0 ANESTHESIA OF SKIN 05/23/2019 FREDY ESQUEDA Ot R93.1 ABNORMAL FINDINGS ON DX IMAGING OF HEART 05/23/2019 FREDY ESQUEDA Ot Z86.73 PRSNL HX OF TIA (TIA), AND CEREB INFRC W 05/23/2019 DANNA RODRIGUEZ MD, Ot E78. 5 HYPERLIPIDEMIA, UNSPECIFIED 05/23/2019 DANNA RODRIGUEZ MD, Ot I10 ESSENTIAL (PRIMARY) HYPERTENSION 05/23/2019 DANNA RODRIGUEZ MD, Ot I50. 9 HEART FAILURE, UNSPECIFIED 05/23/2019 DANNA RODRIGUEZ MD Ot R07. 89 OTHER CHEST PAIN 05/23/2019 DANNA RODRIGUEZ MD, Ot R94. 31 ABNORMAL ELECTROCARDIOGRAM [ECG] [EKG] 05/23/2019 DANNA RODRIGUEZ MD, Ot Z53. 09 PROC/TRTMT NOT CARRIED OUT BECAUSE OF CO 05/23/2019 DANNA RODRIGUEZ MD, Ot Z95. 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 33 OBSTRUCTIVE SLEEP APNEA (ADULT) (PEDIATR 06/10/2019 DANNA RODRIGUEZ MD, Ot I08. 3 COMB RHEUMATIC DISORD OF MITRAL, AORTIC 06/10/2019 DANNA RODRIGUEZ MD, Ot R93. 1 ABNORMAL FINDINGS ON DX IMAGING OF HEART 06/10/2019 DANNA RODRIGUEZ MD, Ot Z95. 2 PRESENCE OF PROSTHETIC HEART VALVE 06/10/2019 FREDY ESQUEDA Ot G47.33 OBSTRUCTIVE SLEEP APNEA (ADULT) (PEDIATR 06/10/2019 FREDY ESQUEDA Ot I34.0 NONRHEUMATIC MITRAL (VALVE) INSUFFICIENC 06/10/2019 FREDY ESQUEDA Ot I35.1 NONRHEUMATIC AORTIC (VALVE) INSUFFICIENC 06/10/2019 FREDY ESQUEDA Ot R20.0 ANESTHESIA OF SKIN 06/10/2019 FREDY ESQUEDA Ot R93.1 ABNORMAL FINDINGS ON DX IMAGING OF HEART 06/10/2019 FREDY ESQUEDA Ot Z86.73 PRSNL HX OF TIA (TIA), AND CEREB INFRC W 06/10/2019 DANNA RODRIGUEZ MD, Ot E78. 5 HYPERLIPIDEMIA, UNSPECIFIED 06/10/2019 DANNA RODRIGUEZ MD, Ot I10 ESSENTIAL (PRIMARY) HYPERTENSION 06/10/2019 DANNA RODRIGUEZ MD, Ot I50. 9 HEART FAILURE, UNSPECIFIED 06/10/2019 DANNA RODRIGUEZ MD, Ot R07. 89 OTHER CHEST PAIN 06/10/2019 DANNA RODRIGUEZ MD, Ot R94. 31 ABNORMAL ELECTROCARDIOGRAM [ECG] [EKG] 06/10/2019 DANNA RODRIGUEZ MD, Ot Z53. 09 PROC/TRTMT NOT CARRIED OUT BECAUSE OF CO 06/10/2019 DANNA RODRIGUEZ MD, Ot Z95. 2 PRESENCE OF PROSTHETIC HEART VALVE 06/26/2019 TDAMISHKAREN RUDOLPH Ot M25.562 PAIN IN LEFT KNEE 06/26/2019 DANNA RODRIGUEZ MD, Ot G47. 33 OBSTRUCTIVE SLEEP APNEA (ADULT) (PEDIATR 06/26/2019 DANNA RODRIGUEZ MD Ot I08. 3 COMB RHEUMATIC DISORD OF MITRAL, AORTIC 06/26/2019 DANNA RODRIGUEZ MD Ot R93. 1 ABNORMAL FINDINGS ON DX IMAGING OF HEART 06/26/2019 DANNA RODRIGUEZ MD, Ot Z95. 2 PRESENCE OF PROSTHETIC HEART VALVE 06/26/2019 FREDY ESQUEDA Ot G47.33 OBSTRUCTIVE SLEEP APNEA (ADULT) (PEDIATR 06/26/2019 FREDY ESQUEDA Ot I34.0 NONRHEUMATIC MITRAL (VALVE) INSUFFICIENC 06/26/2019 FREDY ESQUEDA Ot I35.1 NONRHEUMATIC AORTIC (VALVE) INSUFFICIENC 06/26/2019 FREDY ESQUEDA Ot R20.0 ANESTHESIA OF SKIN 06/26/2019 FREDY ESQUEDA Ot R93.1 ABNORMAL FINDINGS ON DX IMAGING OF HEART 06/26/2019 FREDY ESQUEDA Ot Z86.73 PRSNL HX OF TIA (TIA), AND CEREB INFRC W 06/26/2019 DANNA RODRIGUEZ MD Ot E78. 5 HYPERLIPIDEMIA, UNSPECIFIED 06/26/2019 DANNA RODRIGUEZ MD, Ot I10 ESSENTIAL (PRIMARY) HYPERTENSION 06/26/2019 DANNA RODRIGUEZ MD Ot I50. 9 HEART FAILURE, UNSPECIFIED 06/26/2019 DANNA RODRIGUEZ MD Ot R07. 89 OTHER CHEST PAIN 06/26/2019 DANNA RODRIGUEZ MD, Ot R94. 31 ABNORMAL ELECTROCARDIOGRAM [ECG] [EKG] 06/26/2019 DANNA RODRIGUEZ MD, Ot Z53. 09 PROC/TRTMT NOT CARRIED OUT BECAUSE OF CO 06/26/2019 DANNA RODRIGUEZ MD, Ot Z95. 2 PRESENCE OF PROSTHETIC HEART VALVE 07/14/2019 IVAN APPIAH BRICK GRADER Ot M25.562 PAIN IN LEFT KNEE 07/14/2019 DANNA RODRIGUEZ MD, Ot G47. 33 OBSTRUCTIVE SLEEP APNEA (ADULT) (PEDIATR 07/14/2019 DANNA RODRIGUEZ MD Ot I08. 3 COMB RHEUMATIC DISORD OF MITRAL, AORTIC 07/14/2019 DANNA RODRIGUEZ MD Ot R93. 1 ABNORMAL FINDINGS ON DX IMAGING OF HEART 07/14/2019 DANNA RODRIGUEZ MD Ot Z95. 2 PRESENCE OF PROSTHETIC HEART VALVE 07/14/2019 FREDY ESQUEDA Ot G47.33 OBSTRUCTIVE SLEEP APNEA (ADULT) (PEDIATR 07/14/2019 FREDY ESQUEDA Ot I34.0 NONRHEUMATIC MITRAL (VALVE) INSUFFICIENC 07/14/2019 FREDY ESQUEDA Ot I35.1 NONRHEUMATIC AORTIC (VALVE) INSUFFICIENC 07/14/2019 FREDY ESQUEDA Ot R20.0 ANESTHESIA OF SKIN 07/14/2019 FREDY ESQUEDA Ot R93.1 ABNORMAL FINDINGS ON DX IMAGING OF HEART 07/14/2019 FREDY ESQUEDA Ot Z86.73 PRSNL HX OF TIA (TIA), AND CEREB INFRC W 07/14/2019 DANNA RODRIGUEZ MD Ot E78. 5 HYPERLIPIDEMIA, UNSPECIFIED 07/14/2019 DANNA RODRIGUEZ MD Ot I10 ESSENTIAL (PRIMARY) HYPERTENSION 07/14/2019 DANNA RODRIGUEZ MD Ot I50. 9 HEART FAILURE, UNSPECIFIED 07/14/2019 DANNA RODRIGUEZ MD Ot R07. 89 OTHER CHEST PAIN 07/14/2019 DANNA RODRIGUEZ MD Ot R94. 31 ABNORMAL ELECTROCARDIOGRAM [ECG] [EKG] 07/14/2019 DANNA RODRIGUEZ MD, Ot Z53. 09 PROC/TRTMT NOT CARRIED OUT BECAUSE OF CO 07/14/2019 DANNA RODRIGUEZ MD, Ot Z95. 2 PRESENCE OF PROSTHETIC HEART VALVE 07/14/2019 IVAN APPIAH BRICK GRADER Ot M25.562 PAIN IN LEFT KNEE 07/14/2019 DANNA RODRIGUEZ MD Ot G47. 33 OBSTRUCTIVE SLEEP APNEA (ADULT) (PEDIATR 07/14/2019 DANNA RODRIGUEZ MD Ot I08. 3 COMB RHEUMATIC DISORD OF MITRAL, AORTIC 07/14/2019 DANNA RODRIGUEZ MD Ot R93. 1 ABNORMAL FINDINGS ON DX IMAGING OF HEART 07/14/2019 DANNA RODRIGUEZ MD, Ot Z95. 2 PRESENCE OF PROSTHETIC HEART VALVE 07/14/2019 MARTHAFREDY VELA Ot G47.33 OBSTRUCTIVE SLEEP APNEA (ADULT) (PEDIATR 07/14/2019 THOMAS-DALIA CARTER, FREDY Erickson Ot I34.0 NONRHEUMATIC MITRAL (VALVE) INSUFFICIENC 07/14/2019 [facility] FREDY CARTER Ot I35.1 NONRHEUMATIC AORTIC (VALVE) INSUFFICIENC 07/14/2019 [facility] FREDY CARTER Ot R20.0 ANESTHESIA OF SKIN 07/14/2019 FREDY ESQUEDA Ot R93.1 ABNORMAL FINDINGS ON DX IMAGING OF HEART 07/14/2019 THOMAS-FREDY VELA Ot Z86.73 PRSNL HX OF TIA (TIA), AND CEREB INFRC W 07/14/2019 DANNA RODRIGUEZ MD, Ot E78. 5 HYPERLIPIDEMIA, UNSPECIFIED 07/14/2019 DANNA RODRIGUEZ MD, Ot I10 ESSENTIAL (PRIMARY) HYPERTENSION 07/14/2019 DANNA RODRIGUEZ MD, Ot I50. 9 HEART FAILURE, UNSPECIFIED 07/14/2019 DANNA RODRIGUEZ MD Ot R07. 89 OTHER CHEST PAIN 07/14/2019 DANNA RODRIGUEZ MD, Ot R94. 31 ABNORMAL ELECTROCARDIOGRAM [ECG] [EKG] 07/14/2019 DANNA RODRIGUEZ MD, Ot Z53. 09 PROC/TRTMT NOT CARRIED OUT BECAUSE OF CO 07/14/2019 DANNA RODRIGUEZ MD, Ot Z95. 2 PRESENCE OF PROSTHETIC HEART VALVE 07/15/2019 KARTHIK VAZQUEZ MD Ot E87 .6 HYPOKALEMIA 07/15/2019 KARTHIK VAZQUEZ MD Ot I11 .0 HYPERTENSIVE HEART DISEASE WITH HEART FA 07/15/2019 KARTHIK VAZQUEZ MD Ot I21.A1 MYOCARDIAL INFARCTION TYPE 2 07/15/2019 KARTHIK VAZQUEZ MD Ot I42 .9 CARDIOMYOPATHY, UNSPECIFIED 07/15/2019 GEORGE MD, KARTHIK N Ot I50.21 ACUTE SYSTOLIC (CONGESTIVE) HEART FAILUR 07/15/2019 KARTHIK VAZQUEZ MD Ot R13.10 DYSPHAGIA, UNSPECIFIED 07/15/2019 KARTHIK VAZQUEZ MD Ot Z79.01 PROVIDER SERVICE REPRESENTATIVE (CURRENT) USE OF ANTICOAGULANT 07/15/2019 KARTHIK VAZQUEZ MD Ot Z87.01 PERSONAL HISTORY OF PNEUMONIA (RECURRENT 07/15/2019 KARTHIK VAZQUEZ MD Ot Z87.891 PERSONAL HISTORY OF NICOTINE DEPENDENCE 07/15/2019 KARTHIK VAZQUEZ MD Ot Z95 .1 PRESENCE OF AORTOCORONARY BYPASS GRAFT 07/15/2019 KARTHIK VAZQUEZ MD Ot Z95 .2 PRESENCE OF PROSTHETIC HEART VALVE 07/15/2019 KARTHIK VAZQUEZ MD Ot E87 .6 HYPOKALEMIA 07/15/2019 KARTHIK VAZQUEZ MD Ot I11 .0 HYPERTENSIVE HEART DISEASE WITH HEART FA 07/15/2019 KARTHIK VAZQUEZ MD Ot I21.A1 MYOCARDIAL INFARCTION TYPE 2 07/15/2019 KARTHIK VAZQUEZ MD Ot I42 .9 CARDIOMYOPATHY, UNSPECIFIED 07/15/2019 KARTHIK VAZQUEZ MD Ot I50.21 ACUTE SYSTOLIC (CONGESTIVE) HEART FAILUR 07/15/2019 KARTHIK VAZQUEZ MD Ot R13.10 DYSPHAGIA, UNSPECIFIED 07/15/2019 KARTHIK VAZQUEZ MD Ot Z79.01 SHELTER (CURRENT) USE OF ANTICOAGULANT 07/15/2019 KARTHIK VAZQUEZ MD Ot Z87.01 PERSONAL HISTORY OF PNEUMONIA (RECURRENT 07/15/2019 KARTHIK VAZQUEZ MD Ot Z87.891 PERSONAL HISTORY OF NICOTINE DEPENDENCE 07/15/2019 KARTHIK VAZQUEZ MD Ot Z95 .1 PRESENCE OF AORTOCORONARY BYPASS GRAFT 07/15/2019 KARTHIK VAZQUEZ MD Ot Z95 .2 PRESENCE OF PROSTHETIC HEART VALVE Procedures There is no data. Results Test Result Range Complete urinalysis with reflex to cultu re - 11/22/16 11:29 Urine color determination YELLOW NRG Urine clarity determination CLEAR NR G Urine pH measurement by test strip 7 5-9 Specific gravity of urine by test strip 1.005 1.016-1.022 Urine protein assay by test strip, semi-quantitative 1+ NEGATIVE Urine glucose detection by automated test strip NE GATIVE NEGATIVE Erythrocytes detection in urine sediment by light micr oscopy 1+ NEGATIVE Urine ketones detection by automated test strip NE GATIVE NEGATIVE Urine nitrite detection by test strip NEGATIVE NEGATIVE Urine total bilirubin detection by test strip NEGA TIVE NEGATIVE Urine urobilinogen measurement by automated test strip (mass/volume) 1 mg/dL NORMAL Urine leukocyte esterase detection by dipstick 1+ NEGATIVE Automated urine sediment erythrocyte cou nt by microscopy (number/high power field) RARE NRG Automated urine sediment leukocyte count by microscopy (number/high power field) RARE NRG Bacteria detection in urine sediment by light microsco py NEGATIVE NRG Squamous epithelial cells detection in u rine sediment by light microscopy RARE NRG Crystals detection in urine sediment by light microsco py NONE NRG Casts detection in urine sediment by light microscopy NONE NRG Mucus detection in urine sediment by light microscopy NEGATIVE NRG Complete urinalysis with reflex to culture NO NRG PT panel in platelet poor plasma by coag ulation assay - 11/22/16 11:35 Prothrombin time (PT) in platelet poor plasma by coagu lation assay 27.7 s 12.2-14.7 INR in platelet poor plasma or blood by coagulation as say 2.6 0.8-1.4 Activated partial thromboplastin time (a PTT) in platelet poor plasma bycoagulation assay - 11/22/16 11:35 Activated partial thromboplastin time (a PTT) in platelet poor plasma bycoagulation assay 45 s 24-35 Automated blood complete blood count (he mogram) panel - 11/22/16 11:35 Blood leukocytes automated count (number/volume) 5.1 10*3/uL 4.3-11.0 Blood erythrocytes automated count (number/volume) 4.13 10*6/uL 4.35-5.85 Venous blood hemoglobin measurement (mass/volume) 13.1 g/dL 13.3-17.7 Blood hematocrit (volume fraction) 39 % 40-54 Automated erythrocyte mean corpuscular volume 95 [ foz_us] 80-99 Automated erythrocyte mean corpuscular h emoglobin (mass per erythrocyte) 32 pg 25-34 Automated erythrocyte mean corpuscular h emoglobin concentration measurement (mass/volume) 33 g/dL 32-36 Automated erythrocyte distribution width ratio 15. 4 % 10.0- 14.5 Automated blood platelet count (count/volume) 153 10*3/uL 130-400 Automated blood platelet mean volume measurement 10.7 [foz_us] 7.4-10.4 Comprehensive metabolic panel - 11/22/16 11:35 Serum or plasma sodium measurement (moles/volume) 139 mmol/L 135-145 Serum or plasma potassium measurement (moles/volume) 3.6 mmol/L 3.6-5.0 Serum or plasma chloride measurement (moles/volume) 106 mmol/L 98-107 Carbon dioxide 26 mmol/L 21-32 Serum or plasma anion gap determination (moles/volume) 7 mmol/L 5-14 Serum or plasma urea nitrogen measurement (mass/volume ) 11 mg/dL 7-18 Serum or plasma creatinine measurement (mass/volume) 0.88 mg/dL 0.60-1.30 Serum or plasma urea nitrogen/creatinine mass ratio 13 NRG Serum or plasma creatinine measurement w ith calculation of estimated glomerular filtration rate > NRG Serum or plasma glucose measurement (mass/volume) 86 mg/dL 70-105 Serum or plasma calcium measurement (mass/volume) 9.0 mg/dL 8.5-10.1 Serum or plasma total bilirubin measurement (mass/volu me) 1.1 mg/dL 0.1-1.0 Serum or plasma alkaline phosphatase negro surement (enzymatic activity/volume) 53 U/L 40-136 Serum or plasma aspartate aminotransfera se measurement (enzymatic activity/volume) 29 U/L 5-34 Serum or plasma alanine aminotransferase measurement (enzymatic activity/volume) 38 U/L 0-55 Serum or plasma protein measurement (mass/volume) 7.5 g/dL 6.4-8.2 Serum or plasma albumin measurement (mass/volume) 3.8 g/dL 3.2-4.5 Lipid 1996 panel - 11/22/16 11:35 Serum or plasma triglyceride measurement (mass/volume) 90 mg/dL <150 Serum or plasma cholesterol measurement (mass/volume) 156 mg/dL < 200 Serum or plasma cholesterol in HDL measurement (mass/v olume) 47 mg/dL 40-60 Cholesterol in LDL [mass/volume] in serum or plasma by direct assay 89 mg/dL 1-129 Serum or plasma cholesterol in VLDL measurement (mass/ volume) 18 mg/dL 5-40 Methicillin resistant Staphylococcus aur eus (MRSA) screening culture - 11/22/16 11:35 Methicillin resistant Staphylococcus aureus (MRSA) scr eening culture NEG NRG PT panel in platelet poor plasma by coag ulation assay - 11/24/16 08:15 Prothrombin time (PT) in platelet poor plasma by coagu lation assay 15.3 s 12.2-14.7 INR in platelet poor plasma or blood by coagulation as say 1.2 0.8-1.4 Complete blood count (CBC) with automate d white blood cell (WBC) differential - 05/23/19 11:20 Blood leukocytes automated count (number/volume) 6.6 10*3/uL 4.3-11.0 Blood erythrocytes automated count (number/volume) 3.56 10*6/uL 4.35-5.85 Venous blood hemoglobin measurement (mass/volume) 11.2 g/dL 13.3-17.7 Blood hematocrit (volume fraction) 34 % 40-54 Automated erythrocyte mean corpuscular volume 95 [ foz_us] 80-99 Automated erythrocyte mean corpuscular h emoglobin (mass per erythrocyte) 32 pg 25-34 Automated erythrocyte mean corpuscular h emoglobin concentration measurement (mass/volume) 33 g/dL 32-36 Automated erythrocyte distribution width ratio 13. 3 % 10.0- 14.5 Automated blood platelet count (count/volume) 180 10*3/uL 130-400 Automated blood platelet mean volume measurement 10.1 [foz_us] 7.4-10.4 Automated blood neutrophils/100 leukocytes 63 % 42-75 Automated blood lymphocytes/100 leukocytes 29 % 12-44 Blood monocytes/100 leukocytes 7 % 0-12 Automated blood eosinophils/100 leukocytes 1 % 0-10 Automated blood basophils/100 leukocytes 0 % 0-10 Blood neutrophils automated count (number/volume) 4.2 10*3 1.8-7.8 Blood lymphocytes automated count (number/volume) 1.9 10*3 1.0-4.0 Blood monocytes automated count (number/volume) 0. 4 10*3 0.0-1.0 Automated eosinophil count 0.1 10*3/uL 0 .0-0.3 Automated blood basophil count (count/volume) 0.0 10*3/uL 0.0-0.1 Comprehensive metabolic panel - 05/23/19 11:20 Serum or plasma sodium measurement (moles/volume) 138 mmol/L 135-145 Serum or plasma potassium measurement (moles/volume) 3.0 mmol/L 3.6-5.0 Serum or plasma chloride measurement (moles/volume) 104 mmol/L 98-107 Carbon dioxide 24 mmol/L 21-32 Serum or plasma anion gap determination (moles/volume) 10 mmol/L 5-14 Serum or plasma urea nitrogen measurement (mass/volume ) 14 mg/dL 7-18 Serum or plasma creatinine measurement (mass/volume) 1.21 mg/dL 0.60-1.30 Serum or plasma urea nitrogen/creatinine mass ratio 12 NRG Serum or plasma creatinine measurement w ith calculation of estimated glomerular filtration rate > NRG Serum or plasma glucose measurement (mass/volume) 106 mg/dL 70-105 Serum or plasma calcium measurement (mass/volume) 8.7 mg/dL 8.5-10.1 Serum or plasma total bilirubin measurement (mass/volu me) 0.5 mg/dL 0.1-1.0 Serum or plasma alkaline phosphatase negro surement (enzymatic activity/volume) 55 U/L 40-136 Serum or plasma aspartate aminotransfera se measurement (enzymatic activity/volume) 83 U/L 5-34 Serum or plasma alanine aminotransferase measurement (enzymatic activity/volume) 87 U/L 0-55 Serum or plasma protein measurement (mass/volume) 6.8 g/dL 6.4-8.2 Serum or plasma albumin measurement (mass/volume) 3.6 g/dL 3.2-4.5 CALCIUM CORRECTED 9.0 mg/dL 8.5-10.1 Magnesium - 05/23/19 11:20 Magnesium 1.8 mg/dL 1.6-2.4 Myoglobin, serum - 05/23/19 11:20 Myoglobin, serum 48.7 ng/mL 10.0-92.0 PT panel in platelet poor plasma by coag ulation assay - 05/23/19 11:20 Prothrombin time (PT) in platelet poor plasma by coagu lation assay 22.4 s 12.2-14.7 INR in platelet poor plasma or blood by coagulation as say 1.9 0.8-1.4 Activated partial thromboplastin time (a PTT) in platelet poor plasma bycoagulation assay - 05/23/19 11:20 Activated partial thromboplastin time (a PTT) in platelet poor plasma bycoagulation assay 42 s 24-35 Serum or plasma troponin i.cardiac measu rement (mass/volume) - 05/23/19 11:20 Serum or plasma troponin i.cardiac measurement (mass/v olume) 0.121 ng/mL <0.028 Serum or plasma lithium measurement (mol es/volume) - 05/23/19 11:20 BNP PT 1273.1 pg/mL <100.0 Influenza virus A and B antigen detectio n - 05/23/19 11:30 FLU RESULT NEGATIVE FOR INFLUENZA A AND B ANTIGENS BY IA NRG CMP - 06/24/19 13:15 GLUCOSE 90 mg/dL 65-99 UREA NITROGEN (BUN) 18 mg/dL 7-25 CREATININE 1.10 mg/dL 0.60-1.35 eGFR NON-AFR. IRISH 81 mL/min/1.73m2 > OR = 60 eGFR [...] TYPE NATRIURETIC PEPTIDE (BNP) 469 pg/mL <100 Blood lactic acid measurement (moles/vol ume) - 07/14/19 07:30 Blood lactic acid measurement (moles/volume) 1.09 mmol/L 0.50-2.00 Complete blood count (CBC) with automate d white blood cell (WBC) differential - 07/14/19 07:30 Blood leukocytes automated count (number/volume) 5.8 10*3/uL 4.3-11.0 Blood erythrocytes automated count (number/volume) 4.14 10*6/uL 4.35-5.85 Venous blood hemoglobin measurement (mass/volume) 12.6 g/dL 13.3-17.7 Blood hematocrit (volume fraction) 38 % 40-54 Automated erythrocyte mean corpuscular volume 92 [ foz_us] 80-99 Automated erythrocyte mean corpuscular h emoglobin (mass per erythrocyte) 30 pg 25-34 Automated erythrocyte mean corpuscular h emoglobin concentration measurement (mass/volume) 33 g/dL 32-36 Automated erythrocyte distribution width ratio 13. 9 % 10.0- 14.5 Automated blood platelet count (count/volume) 171 10*3/uL 130-400 Automated blood platelet mean volume measurement 10.1 [foz_us] 7.4-10.4 Automated blood neutrophils/100 leukocytes 57 % 42-75 Automated blood lymphocytes/100 leukocytes 33 % 12-44 Blood monocytes/100 leukocytes 10 % 0-12 Automated blood eosinophils/100 leukocytes 1 % 0-10 Automated blood basophils/100 leukocytes 0 % 0-10 Blood neutrophils automated count (number/volume) 3.3 10*3 1.8-7.8 Blood lymphocytes automated count (number/volume) 1.9 10*3 1.0-4.0 Blood monocytes automated count (number/volume) 0. 6 10*3 0.0-1.0 Automated eosinophil count 0.0 10*3/uL 0 .0-0.3 Automated blood basophil count (count/volume) 0.0 10*3/uL 0.0-0.1 Comprehensive metabolic panel - 07/14/19 07:30 Serum or plasma sodium measurement (moles/volume) 138 mmol/L 135-145 Serum or plasma potassium measurement (moles/volume) 3.3 mmol/L 3.6-5.0 Serum or plasma chloride measurement (moles/volume) 104 mmol/L 98-107 Carbon dioxide 24 mmol/L 21-32 Serum or plasma anion gap determination (moles/volume) 10 mmol/L 5-14 Serum or plasma urea nitrogen measurement (mass/volume ) 11 mg/dL 7-18 Serum or plasma creatinine measurement (mass/volume) 1.19 mg/dL 0.60-1.30 Serum or plasma urea nitrogen/creatinine mass ratio 9 NRG Serum or plasma creatinine measurement w ith calculation of estimated glomerular filtration rate > NRG Serum or plasma glucose measurement (mass/volume) 92 mg/dL 70-105 Serum or plasma calcium measurement (mass/volume) 9.0 mg/dL 8.5-10.1 Serum or plasma total bilirubin measurement (mass/volu me) 1.2 mg/dL 0.1-1.0 Serum or plasma alkaline phosphatase negro surement (enzymatic activity/volume) 67 U/L 40-136 Serum or plasma aspartate aminotransfera se measurement (enzymatic activity/volume) 39 U/L 5-34 Serum or plasma alanine aminotransferase measurement (enzymatic activity/volume) 24 U/L 0-55 Serum or plasma protein measurement (mass/volume) 7.6 g/dL 6.4-8.2 Serum or plasma albumin measurement (mass/volume) 3.9 g/dL 3.2-4.5 CALCIUM CORRECTED 9.1 mg/dL 8.5-10.1 Magnesium - 07/14/19 07:30 Magnesium 1.7 mg/dL 1.6-2.4 Serum ragweed IgE antibody assay - 07/13 07:30 Serum ragweed IgE antibody assay 509 U/L 125-220 PROCALCITONIN (PCT) - 07/14/19 07:30 PROCALCITONIN (PCT) 0.05 ng/mL <0.10 PT panel in platelet poor plasma by coag ulation assay - 07/14/19 07:30 Prothrombin time (PT) in platelet poor plasma by coagu lation assay 33.8 s 12.2-14.7 INR in platelet poor plasma or blood by coagulation as say 3.2 0.8-1.4 Activated partial thromboplastin time (a PTT) in platelet poor plasma bycoagulation assay - 07/14/19 07:30 Activated partial thromboplastin time (a PTT) in platelet poor plasma bycoagulation assay 47 s 24-35 Serum or plasma troponin i.cardiac measu rement (mass/volume) - 07/14/19 07:30 Serum or plasma troponin i.cardiac measurement (mass/v olume) 0.125 ng/mL <0.028 THYROID STIMULATING HORMONE - 07/14/19 0 7:30 THYROID STIMULATING HORMONE 1.20 u[iU]/mL 0.35-4.94 Serum or plasma C reactive protein measu rement (mass/volume) - 07/14/19 07:30 Serum or plasma C reactive protein measurement (mass/v olume) 1.22 mg/dL 0.00-0.50 Erythrocyte sedimentation rate by caroline gren method - 07/14/19 07:30 Erythrocyte sedimentation rate by westergren method 7 mm 0- 15 Serum or plasma lithium measurement (mol es/volume) - 07/14/19 07:30 BNP PT 886.0 pg/mL <100.0 Serum or plasma ferritin measurement (ma ss/volume) - 07/14/19 07:30 Serum or plasma ferritin measurement (mass/volume) 105.7 % 32.0-356.0 Bacterial blood culture - 07/14/19 07:30 Bacterial blood culture NG NRG Bacterial blood culture - 07/14/19 09:24 Bacterial blood culture NG NRG Serum or plasma troponin i.cardiac measu rement (mass/volume) - 07/14/19 16:35 Serum or plasma troponin i.cardiac measurement (mass/v olume) 0.122 ng/mL <0.028 Automated blood complete blood count (he mogram) panel - 07/15/19 05:15 Blood leukocytes automated count (number/volume) 5.6 10*3/uL 4.3-11.0 Blood erythrocytes automated count (number/volume) 3.89 10*6/uL 4.35-5.85 Venous blood hemoglobin measurement (mass/volume) 11.9 g/dL 13.3-17.7 Blood hematocrit (volume fraction) 36 % 40-54 Automated erythrocyte mean corpuscular volume 92 [ foz_us] 80-99 Automated erythrocyte mean corpuscular h emoglobin (mass per erythrocyte) 31 pg 25-34 Automated erythrocyte mean corpuscular h emoglobin concentration measurement (mass/volume) 33 g/dL 32-36 Automated erythrocyte distribution width ratio 14. 1 % 10.0- 14.5 Automated blood platelet count (count/volume) 163 10*3/uL 130-400 Automated blood platelet mean volume measurement 10.1 [foz_us] 7.4-10.4 Comprehensive metabolic panel - 07/15/19 05:15 Serum or plasma sodium measurement (moles/volume) 138 mmol/L 135-145 Serum or plasma potassium measurement (moles/volume) 2.8 mmol/L 3.6-5.0 Serum or plasma chloride measurement (moles/volume) 103 mmol/L 98-107 Carbon dioxide 23 mmol/L 21-32 Serum or plasma anion gap determination (moles/volume) 12 mmol/L 5-14 Serum or plasma urea nitrogen measurement (mass/volume ) 10 mg/dL 7-18 Serum or plasma creatinine measurement (mass/volume) 1.08 mg/dL 0.60-1.30 Serum or plasma urea nitrogen/creatinine mass ratio 9 NRG Serum or plasma creatinine measurement w ith calculation of estimated glomerular filtration rate > NRG Serum or plasma glucose measurement (mass/volume) 122 mg/dL 70-105 Serum or plasma calcium measurement (mass/volume) 8.4 mg/dL 8.5-10.1 Serum or plasma total bilirubin measurement (mass/volu me) 1.4 mg/dL 0.1-1.0 Serum or plasma alkaline phosphatase negro surement (enzymatic activity/volume) 58 U/L 40-136 Serum or plasma aspartate aminotransfera se measurement (enzymatic activity/volume) 31 U/L 5-34 Serum or plasma alanine aminotransferase measurement (enzymatic activity/volume) 19 U/L 0-55 Serum or plasma protein measurement (mass/volume) 6.6 g/dL 6.4-8.2 Serum or plasma albumin measurement (mass/volume) 3.4 g/dL 3.2-4.5 CALCIUM CORRECTED 8.9 mg/dL 8.5-10.1 PT panel in platelet poor plasma by coag ulation assay - 07/15/19 05:15 Prothrombin time (PT) in platelet poor plasma by coagu lation assay 31.4 s 12.2-14.7 INR in platelet poor plasma or blood by coagulation as say 2.9 0.8-1.4 Whole blood basic metabolic panel - 06/16 05/05 12:35 Serum or plasma sodium measurement (moles/volume) 138 mmol/L 135-145 Serum or plasma potassium measurement (moles/volume) 3.3 mmol/L 3.6-5.0 Serum or plasma chloride measurement (moles/volume) 102 mmol/L 98-107 Carbon dioxide 22 mmol/L 21-32 Serum or plasma anion gap determination (moles/volume) 14 mmol/L 5-14 Serum or plasma urea nitrogen measurement (mass/volume ) 11 mg/dL 7-18 Serum or plasma creatinine measurement (mass/volume) 1.09 mg/dL 0.60-1.30 Serum or plasma urea nitrogen/creatinine mass ratio 10 NRG Serum or plasma creatinine measurement w ith calculation of estimated glomerular filtration rate > NRG Serum or plasma glucose measurement (mass/volume) 106 mg/dL 70-105 Serum or plasma calcium measurement (mass/volume) 8.4 mg/dL 8.5-10.1 Complete blood count (CBC) with automate d white blood cell (WBC) differential - 08/25/19 08:28 Blood leukocytes automated count (number/volume) 4.6 10*3/uL 4.3-11.0 Blood erythrocytes automated count (number/volume) 4.59 10*6/uL 4.35-5.85 Venous blood hemoglobin measurement (mass/volume) 13.5 g/dL 13.3-17.7 Blood hematocrit (volume fraction) 41 % 40-54 Automated erythrocyte mean corpuscular volume 89 [ foz_us] 80-99 Automated erythrocyte mean corpuscular h emoglobin (mass per erythrocyte) 29 pg 25-34 Automated erythrocyte mean corpuscular h emoglobin concentration measurement (mass/volume) 33 g/dL 32-36 Automated erythrocyte distribution width ratio 14. 6 % 10.0- 14.5 Automated blood platelet count (count/volume) 220 10*3/uL 130-400 Automated blood platelet mean volume measurement 9.6 [foz_us] 7.4-10.4 Automated blood neutrophils/100 leukocytes 41 % 42-75 Automated blood lymphocytes/100 leukocytes 47 % 12-44 Blood monocytes/100 leukocytes 11 % 0-12 Automated blood eosinophils/100 leukocytes 1 % 0-10 Automated blood basophils/100 leukocytes 0 % 0-10 Blood neutrophils automated count (number/volume) 1.9 10*3 1.8-7.8 Blood lymphocytes automated count (number/volume) 2.2 10*3 1.0-4.0 Blood monocytes automated count (number/volume) 0. 5 10*3 0.0-1.0 Automated eosinophil count 0.0 10*3/uL 0 .0-0.3 Automated blood basophil count (count/volume) 0.0 10*3/uL 0.0-0.1 Comprehensive metabolic panel - 08/25/19 08:28 Serum or plasma sodium measurement (moles/volume) 134 mmol/L 135-145 Serum or plasma potassium measurement (moles/volume) 3.5 mmol/L 3.6-5.0 Serum or plasma chloride measurement (moles/volume) 102 mmol/L 98-107 Carbon dioxide 19 mmol/L 21-32 Serum or plasma anion gap determination (moles/volume) 13 mmol/L 5-14 Serum or plasma urea nitrogen measurement (mass/volume ) 26 mg/dL 7-18 Serum or plasma creatinine measurement (mass/volume) 1.61 mg/dL 0.60-1.30 Serum or plasma urea nitrogen/creatinine mass ratio 16 NRG Serum or plasma creatinine measurement w ith calculation of estimated glomerular filtration rate 57 NRG Serum or plasma glucose measurement (mass/volume) 111 mg/dL 70-105 Serum or plasma calcium measurement (mass/volume) 9.1 mg/dL 8.5-10.1 Serum or plasma total bilirubin measurement (mass/volu me) 1.2 mg/dL 0.1-1.0 Serum or plasma alkaline phosphatase negro surement (enzymatic activity/volume) 98 U/L 40-136 Serum or plasma aspartate aminotransfera se measurement (enzymatic activity/volume) 63 U/L 5-34 Serum or plasma alanine aminotransferase measurement (enzymatic activity/volume) 43 U/L 0-55 Serum or plasma protein measurement (mass/volume) 8.5 g/dL 6.4-8.2 Serum or plasma albumin measurement (mass/volume) 4.1 g/dL 3.2-4.5 CALCIUM CORRECTED 9.0 mg/dL 8.5-10.1 Magnesium - 08/25/19 08:28 Magnesium 1.8 mg/dL 1.6-2.4 Serum or plasma lithium measurement (mol es/volume) - 08/25/19 08:28 BNP PT 1215.0 pg/mL <100.0 Encounters ACCT No. Visit Date/Time Discharge Status Pt. Type Provider Facility Loc./Unit Complaint [id number] 06/24/2019 09:00:00 Document Registration [id number] 07/14/2019 13:20:00 16:56:00 DIS Outpatient GEORGE MEYER, KARTHIK Guillory [facility] 4TH ACUTE HEART FAILURE [id number] 05/23/2019 11:01:00 13:27:00 DIS Emergency BRUEGGEMANN MD, CRISTINA Julien [facility] ER CHEST TIGHTNESS ;SOA [id number] 11/24/2016 07:57:00 017 16:20:00 DIS Outpatient MARLO ESQUEDA Via [facility] CHF,CP,HTN, HLP [id number] 11/22/2016 11:00:00 017 23:59:59 CLS Outpatient DANNA RODRIGUEZ MD Via [facility] CHF,CP,HTN, HLP [id number] 11/20/2016 12:14:00 017 23:59:59 CLS Outpatient MARLO ESQUEDA Via [facility] RAD LT HACIAL N [id number] 10/11/2016 14:53:00 017 23:59:59 CLS Outpatient DANNA RODRIGUEZ MD Via [facility] CARD MR I34.0, TR I07.1 [id number] 12/07/2015 09:09:00 016 23:59:59 CLS Outpatient IVAN APPIAH APRN Via [facility] RAD LT KNEE PAIN [id number] 08/25/2019 08:39:00 Document Registration [id number] 12/07/2015 09:07:00 Document Registration [id number] 04/03/2012 20:15:00 Document Registration [id number] 07/01/2011 15:11:00 Document Registration
--- OUTSIDE RECORDS SUMMARY | 2019-08-25 09:31 | XMS REPORT ---
Author Author [employer] [facility] [employer] [facility] Address [address] [place] [address] Care Team Providers Care Receptionist Scheduler Name Role Phone DEREK CASTELLON Unavailable JENNIFER MEYER, DANNA Plata Unavailable Unavailable ASHISH MEYER, CRISTINA Julien Unavailable Unavailable LESLI CARTER, FREDY Erickson Unavailable Unavailab lexx JIMENEZ MD, DANNA Plata Unavailable Unavailable IVAN APPIAH APRN Unavailable Unavailable Unavailable Unavailable WALLACE MEYER, GERMAIN Parker Unavailable Unavailable KARTHIK VAZQUEZ MD Unavailable Unavailable KARTHIK VAZQUEZ MD Unavailable Unavailable Unavailable Unavailable Unavailable Unavailable Unavailable Unavailable Allergies Normalized Allergy Reported Date of Reaction(s) Care Provider Facility Allergy Type classification allergen Allergy Onset MA (5 Unclassified NKANo Known 03-04-2006 - no information BA PATRICIO JIMENEZ , Not Available sources.) Allergies (41898) Medications No Information Problems Problem Normalized Date Last Normalized Normalized Provider Fa cility Classification Problem(s) Recorded Problem Problem Sta tus Duration Other Abnormal Episodic Active DANNA JIMENEZ , [facility] Via screening for findings on [facility] suspected diagnostic Hospital - conditions imaging of [place] (not mental heart and (97894) disorders or coronary infectious circulation disease) (16 Translations: sources.) [ ABNORMAL ELECTROCARDIOG ALEK [ECG] [EKG]] Other nervous Anesthesia of Episodic Active FREDY [facility] Via system skin MARTHA-RENETTA Miri disorders (10 N , [place] Hospital - sources.) [place] ([address]) Milagros-; endo-; Cardiomyopathy 08-20-2019 - Chronic Active MIGUELINA ANY GEORGE [facility] Via and , unspecified , [facility] myocarditis; Hospital - cardiomyopathy [place] (except that (47791) caused by tuberculosis or sexually transmitted disease) (8 sources.) Coronary Chronic total Chronic Active FREDY [facility] Via atherosclerosi occlusion of THOMAS-ANDSADIAO [place]aitlin s and other coronary N , [place] Hospital - heart disease artery [place] (10 sources.) Translations: (13446) [ ATHSCL HEART DISEASE OF [place] CORONARY ] 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 BASMATHEW JIMENEZ , Not Available disorders (20 rheumatic (15765) sources.) disorders of mitral, aortic and tricuspid valves Translations: [ PRESENCE OF PROSTHETIC HEART VALVE, PRESENCE OF OTHER HEART-VALVE REPLACEMEN, NONRHEUMATIC MITRAL (VALVE) INSUFFICIENC, NONRHEUMATIC AORTIC (VALVE) INSUFFICIENC] Other Dysphagia, 08-20-2019 - Episodic Active KARTHIK GEORGE [facility] Via gastrointestin unspecified , MD [facility] al disorders Hospital - (8 sources.) [place] () Essential Essential Chronic Active BASHAR JENNIFER , [facility] Via hypertension (primary) MD [facility] (10 sources.) hypertension Hospital - [place] ([address]) Congestive Heart failure, 08-20-2019 - Chronic Active BASHAR JENNIFER , [facility] Via heart failure; unspecified [facility] nonhypertensiv Translations: Hospital - e (26 [ CHRONIC [place] sources.) SYSTOLIC (99960) (CONGESTIVE) HEART FAIL, ACUTE SYSTOLIC (CONGESTIVE) HEART FAILUR] Disorders of Hyperlipidemia Chronic Active BASHAR JENNIFER , [facility] Via lipid , unspecified [facility] metabolism (10 Hospital - sources.) [place] ([address]558) Hypertension Hypertensive 08-20-2019 - Chronic Active KARTHIK GEORGE [facility] Via with heart disease , [facility] complications with heart Hospital - and secondary failure [place] hypertension (65478) (8 sources.) Fluid and Hypokalemia 08-20-2019 - Episodic Active CRISTINA [facility] Via electrolyte [place]aitlin HINOJOSA disorders (16 Hospital - sources.) [place] (69287) Other terminal carman 08-20-2019 - Episodic Active FREDY [facility] Via aftercare (21 (current) use INDU [place] sources.) of N , [place] Hospital - anticoagulants [place] () Acute Myocardial 08-20-2019 - Chronic Active KARTHIK GEORGE [facility] Via myocardial infarction , [facility] infarction (8 type 2 Hospital - sources.) [place] (80665) Residual Obstructive Chronic Active BASHAR JENNIFER , [facility] V ia codes; sleep apnea [facility] unclassified (adult) Hospital - (16 sources.) (pediatric) [place] (18912) Nonspecific Other chest Episodic Active FREDY [facility] Via chest pain (21 pain THOMAS-ANDERSO [place]lin sources.) N [place] Hospital - [place] (59169) Other Other long Episodic Active FREDY [facility] Via aftercare (5 term (current) THOMAS-ANDERSO Caitiln sources.) drug therapy N [facility] - [place] (69289) 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 N [facility] Hospital - r disease (5 [place] sources.) (96242) Other Pain in left Episodic Active ASHDEN APPIAH , [facility] Via non-traumatic 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 Hospital - disorders (5 [place] sources.) (36197) Screening and Personal 08-20-2019 - Episodic Active CRISTINA [facility] Via history of history of Caitlin HINOJOSA mental health nicotine [facility] - and substance dependence [place] abuse codes (41467) (16 sources.) Other lower Personal 08-20-2019 - Episodic Active KARTHIK ALEJANDRO H [facility] Via respiratory history of , [facility] disease (8 pneumonia Hospital - sources.) (recurrent) [place] (99774) Other Personal Episodic Active FREDY [facility] Via circulatory history of MARTHA-RENETTA Miri disease (5 transient N [facility] Hospital - sources.) ischemic [place] attack (TIA), (97314) and cerebral infarction without residual deficits Coronary Presence of 08-20-2019 - Episodic Active FREDY [facility] Via atherosclerosi aortocoronary MARTHA-ANDSADIAO Caitlin s and other bypass graft N [facility] - heart disease [place] (13 sources.) (28317) Residual Procedure and Episodic Active BASHAR JENNIFER , [facility] Via codes; treatment not [facility] unclassified carried out Hospital - (5 sources.) because of [place] other (85027) contraindicati on Aortic; Thoracic Chronic Active FREDY [facility] Via peripheral; 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, N [place] Hospital - artery without [place] aneurysms (5 rupture (06877) sources.) Residual Tobacco use Episodic Active FREDY [facility] Via codes; THOMAS-ANDERSO [place]aitlin unclassified [facility] - (5 sources.) [place] ([address]104) Procedures No Information Immunizations No Information Results Test Name Value Interpretation Reference Range Date Time Fa cility (Normalized) (Normalized) (Medline Reference) not yet categorized on 2019-06-27 CURRENT COUMADIN 10mg daily (no code) [facility] DOSE [facility] () laboratory on 2019-06-27 INR Coag (PPP) 3.0 {INR} (no code) 0.9 - 1.1 {INR} [facility] [Relative time] [facility] () laboratory on 2019-06-24 Albumin 4.0 g/dL (N) 3.4 - 5.4 g/dL [facility] [Mass/Vol] [facility] () Albumin/Globulin 1.3 {ratio} (N) 1 - 2.5 {ratio} [facility] [Mass ratio] [facility] (48458) ALP [Catalytic 57 U/L (N) 44 - 147 U/L [facility] activity/Vol] [facility] (00875) ALT [Catalytic 18 U/L (N) 4 - 40 U/L [facility] activity/Vol] [facility] (95734) AST [Catalytic 26 U/L (N) 10 - 34 U/L [facility] activity/Vol] [facility] (17220) Bilirubin 0.8 mg/dL (N) 0.1 - 1.2 mg/dL [facility] [Mass/Vol] [facility] (60769) Calcium 9.0 mg/dL (N) 8.5 - 10.2 mg/dL [facility] [Mass/Vol] [facility] (92837) Chloride 103 mmol/L (N) 95 - 106 mmol/L [facility] [Moles/Vol] [facility] (45262) CO2 [Moles/Vol] 27 mmol/L (N) 23 - 29 mmol/L [facility] (76346) Creatinine 1.10 mg/dL (N) [facility] [Mass/Vol] [facility] (66680) Free T4 1.2 ng/dL (N) 0.9 - 2.2 ng/dL [facility] [Mass/Vol] [facility] (70897) GFR/1.73 sq M 93 (N) 90 - 120 [facility] predicted among mL/min/{1.73_m2} mL/min/{1.73_m2} Center o f [facility] blacks MDRD [facility] (S/P/Bld) [Vol (26197) rate/Area] GFR/1.73 sq 81 (N) 90 - 120 [facility] M.predicted MDRD mL/min/{1.73_m2} mL/min/{1.73_m2} [facility] (S/P/Bld) [Vol [facility] rate/Area] (39160) Globulin (S) 3.2 g/dL (N) 2 - 3.5 g/dL [facility] [Mass/Vol] [facility] (55021) Glucose 90 mg/dL (N) 60 - 125 mg/dL [facility] [Mass/Vol] [facility] (37516) Natriuretic 469 pg/mL (H) 0 - 100 pg/mL [facility] peptide B (Bld) [facility] [Mass/Vol] [facility] (31526) Potassium 3.2 mmol/L (L) 3.7 - 5.2 mmol/L [facility] [Moles/Vol] [facility] (56847) Protein 7.2 g/dL (N) 6.4 - 8.3 g/dL [facility] [Mass/Vol] [facility] (94308) Sodium 140 mmol/L (N) 135 - 145 mmol/L [facility] [Moles/Vol] [facility] (16412) TSH Qn 0.70 m[IU]/L (N) 0.4 - 4 m[IU]/L [facility] (81698) Urea nitrogen 18 mg/dL (N) 7 - 20 mg/dL [facility] [Mass/Vol] [facility] (59153) Urea NOT APPLICABLE (no code) [facility] nitrogen/Creatin [facility] [Mass ratio] [facility] (34295) Vital Signs The data below is from unstructured sources Vital Response Date/Time Temperature (Fahrenheit) 98.0 degree s F (97.6 - 99.5) 11/24/2016 4:00pm Temperature (Calculated Celsius) 36. 00002 degrees C (36.4 - 37.5) 11/24/2016 4:00pm [...] inches 11/24/2016 8:09am Height (Calculated Centimeters) 177. 590514 cm 11/24/2016 8:09am Weight (Pounds) 210 pounds 11/24/2016 8:09am Weight (Ounces) 0.0 oz 0 11/24/2016 8:09am Weight (Calculated Grams) 21998.40 gm 11/24/2016 8:09am Weight (Calculated Kilograms) 95.254 [...] Diagnosis Care Provi sudhakar Organization Date Type 07-14-2019 Emergency department no information GERMAIN MESSER MD [facility] Via Caitlin patient visit (no phone) [facility] (no phone) 05-23-2019 Emergency department no information CRISTINA SKY [facility] Via Caitlin - patient visit (no phone) [facility] 05-23-2019 (no phone) 07-14-2019 Evaluation and no information KARTHIK VAZQUEZ MD (n o [facility] Via Caitlin - management of phone) [facility] 07-15-2019 inpatient (no phone) 07-14-2019 Patient encounter no information KARTHIK VAZQUEZ MD (no [facility] Via Caitlin - procedure phone) [facility] 07-15-2019 (no phone) 07-04-2019 Patient encounter no information (no phone) [facility] procedure [facility] (no phone) 06-27-2019 Patient encounter no information (no phone) [facility] procedure [facility] (no phone) 06-24-2019 Patient encounter no information (no phone) [facility] procedure [facility] (no phone) 05-23-2019 Patient encounter no information CRISTINA SOLOMON [facility] Via Caitlin procedure (no phone) [facility] (no phone) 11-24-2016 Patient encounter no information no name no or ganization name - procedure 11-24-2016 11-24-2016 Patient encounter no information FREDY Erickson [facility] V ia Caitlin - procedure LESLI PA (no [facility] 11-24-2016 phone) (no phone) 11-22-2016 Patient encounter no information DANNA JIMENEZ MD (no [facility] Via Caitlin procedure phone) [facility] (no phone) 11-20-2016 Patient encounter no information FREDY Erickson [facility] V ia [place]aitlin procedure LESLI PA (no [facility] phone) (no phone) 10-11-2016 Patient encounter no information no name no or ganization name procedure 10-11-2016 Patient encounter no information DANNA JIMENEZ MD (no [facility] Via Caitlin procedure phone) [facility] (no phone) 12-07-2015 Patient encounter no information IVAN APPIAH APR N [facility] Via Caitlin procedure (no phone) [facility] (no phone) Medical Equipment No Information Payers No Information Advance Directives Directive Response Recor ded Date/Time Advance Directives No 8:08am Health Care Power of Petroleum Supply Specialist No 11/24/16 8:08am Organ Donor Yes 11/24/16 [...] This clinical document has been generated using [employer] software that has been certified by the Office of the National Coordinator for Health Information Technology (ONC 15.99.04.3023.Diam.31.00.0.394208) and the National Committee for Energy Operations Vice President (NCQA, as an eMeasure certified technology). FOR [...] BASED ON T HE PRIMARY CLINICAL RECORDS. [employer] [facility]. provides no warranty or guara ntee of the accuracy or completeness of information in this document.The followi information is based on time limited clinical information
--- NOTE | 2019-08-25 10:26 | NUR ---
PT HAD 500 ML URINE OUTPUT PRIOR TO ADMISSION.
--- OUTSIDE RECORDS SUMMARY | 2019-08-25 11:07 | XMS REPORT ---
Author Author [facility] process analyst Hologic [facility] Address [address] [address] Care Team Providers Care Barber Apprentice Name Role Phone DEREK CASTELLON Unavailable JENNIFER MEYER, DANNA Plata Unavailable Unavailable ASHISH MEYER, CRISTINA Julien Unavailable Unavailable LESLI CARTER, FREDY Erickson Unavailable Unavailab lexx JIMENEZ MD, DANNA Plata Unavailable Unavailable TD GONZALEZNIVAN Unavailable Unavailable Unavailable Unavailable WALLACE MEYER, GERMAIN Parker Unavailable Unavailable KARTHIK VAZQUEZ MD Unavailable Unavailable KARTHIK VAZQUEZ MD Unavailable Unavailable Unavailable Unavailable Unavailable Unavailable Unavailable Unavailable Unavailable Unavailable Allergies Normalized Allergy Reported Date of Reaction(s) Care Provider Facility Allergy Type classification allergen Allergy Onset MA (5 Unclassified NKANo Known 03-04-2006 - no information BA PATRICIO JIMENEZ , Not Available sources.) Allergies (78867) Medications No Information Problems Problem Normalized Date Last Normalized Normalized Provider Fa cility Classification Problem(s) Recorded Problem Problem Sta tus Duration Other Abnormal Episodic Active DANNA JIMENEZ , [facility] Via screening for findings on MD [facility] suspected diagnostic Hospital - conditions imaging of [place] (not mental heart and (38623) disorders or coronary infectious circulation disease) (16 Translations: sources.) [ ABNORMAL ELECTROCARDIOG ALEK [ECG] [EKG]] Other nervous Anesthesia of Episodic Active FREDY [facility] Via system skin INDU [place] disorders (10 N , [place] Hospital - sources.) [place] ([address]) Milagros-; endo-; Cardiomyopathy 08-20-2019 - Chronic Active MIGUELINA ANY GEORGE [facility] Via and , unspecified , MD [place] myocarditis; Hospital - cardiomyopathy [place] (except that (70089) caused by tuberculosis or sexually transmitted disease) (8 sources.) Coronary Chronic total Chronic Active FREDY [facility] Via atherosclerosi occlusion of THOMAS-ANDSADIAO [place]aitlin s and other coronary N , [place] [facility] - heart disease artery [place] (10 sources.) Translations: (80146) [ ATHSCL HEART DISEASE OF [place] CORONARY ] 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 BASMATHEW JIMENEZ , Not Available disorders (20 rheumatic (16594) sources.) disorders of mitral, aortic and tricuspid valves Translations: [ PRESENCE OF PROSTHETIC HEART VALVE, PRESENCE OF OTHER HEART-VALVE REPLACEMEN, NONRHEUMATIC MITRAL (VALVE) INSUFFICIENC, NONRHEUMATIC AORTIC (VALVE) INSUFFICIENC] Other Dysphagia, 08-20-2019 - Episodic Active KARTHIK GEORGE [facility] Via gastrointestin unspecified , MD Tucker al disorders Hospital - (8 sources.) [place] () Essential Essential Chronic Active BASHAR JENNIFER , [facility] Via hypertension (primary) MD Tucker (10 sources.) hypertension Hospital - [place] ([address]) Congestive Heart failure, 08-20-2019 - Chronic Active BASHAR JENNIFER , [facility] Via heart failure; unspecified MD Tucker nonhypertensiv Translations: Hospital - e (26 [ CHRONIC [place] sources.) SYSTOLIC (95405) (CONGESTIVE) HEART FAIL, ACUTE SYSTOLIC (CONGESTIVE) HEART FAILUR] Disorders of Hyperlipidemia Chronic Active BASMATHEW JIMENEZ , [facility] Via lipid , unspecified MD [facility] metabolism (10 Hospital - sources.) [place] () Hypertension Hypertensive 08-20-2019 - Chronic Active KARTHIK GEORGE [facility] Via with heart disease , MD [facility] complications with heart Hospital - and secondary failure [place] hypertension ([address]) (8 sources.) Fluid and Hypokalemia 08-20-2019 - Episodic Active CRISTINA [facility] Via electrolyte [place]aitlin HINOJOSA disorders (16 Hospital - sources.) [place] ([address]) Other halfway 08-20-2019 - Episodic Active FREDY [facility] Via aftercare (21 (current) use INDU [place] sources.) of N , [place] Hospital - anticoagulants [place] () Acute Myocardial 08-20-2019 - Chronic Active KARTHIK GEORGE [facility] Via myocardial infarction , MD [place] infarction (8 type 2 Hospital - sources.) [place] () Residual Obstructive Chronic Active BASHAR JENNIFER , [facility] V ia codes; sleep apnea MD [place] unclassified (adult) Hospital - (16 sources.) (pediatric) [place] ([address]) Nonspecific Other chest Episodic Active FREDY [facility] Via chest pain (21 pain THOMAS-ANDERSO Caitlin sources.) N [facility] Hospital - [place] ([address]) Other Other long Episodic Active FREDY [facility] Via aftercare (5 term (current) [place]ANDERSO [place]lin sources.) drug therapy N [facility] ([address]498) 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 N [facility] Hospital - r disease (5 [place] sources.) ([address]60) Other Pain in left Episodic Active ASHDEN APPIAH , [facility] Via non-traumatic knee CHECK INSPECTOR [place]lin joint Hospital - disorders (5 [place] sources.) ([address]) Screening and Personal 08-20-2019 - Episodic Active CRISTINA [facility] Via history of history of Caitlin HINOJOSA mental health nicotine [facility] - and substance dependence [place] abuse codes ([address]7280) (16 sources.) Other lower Personal 08-20-2019 - Episodic Active KARTHIK ALEJANDRO H [facility] Via respiratory history of , MD [place] disease (8 pneumonia Hospital - sources.) (recurrent) [place] ([address]) Other Personal Episodic Active FREDY [facility] Via circulatory history of MARTHA-TRACYO [place]lin disease (5 transient N [facility] Hospital - sources.) ischemic [place] attack (TIA), (84546) and cerebral infarction without residual deficits Coronary Presence of 08-20-2019 - Episodic Active FREDY [facility] Via atherosclerosi aortocoronary MARTHA-ANDSADIAO Caitlin s and other bypass graft N [facility] Hospital - heart disease [place] (13 sources.) ([address]) Residual Procedure and Episodic Active BASHAR JENNIFER , [facility] Via codes; treatment not MD Tucker unclassified carried out Hospital - (5 sources.) because of [place] other (90360) contraindicati on Aortic; Thoracic Chronic Active FREDY [facility] Via peripheral; 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, N [place] Hospital - artery without [place] aneurysms (5 rupture (07003) sources.) Residual Tobacco use Episodic Active FREDY [facility] Via codes; THOMAS-ANDERSO [place]lin unclassified [facility] - (5 sources.) [place] ([address]) Procedures No Information Immunizations No Information Results Test Name Value Interpretation Reference Range Date Time Fa cility (Normalized) (Normalized) (Medline Reference) laboratory on 2019-08-25 Albumin 4.1 g/dL (NEG) 3.4 - 5.4 g/dL 08-25-2019 PENDING LOCATION [Mass/Vol] 04: [facility] () ALP [Catalytic 98 U/L (NEG) 44 - 147 U/L 08-25-2019 PEND ING LOCATION activity/Vol] 04: [facility] () ALT [Catalytic 43 U/L (NEG) 4 - 40 U/L 08-25-2019 PENDIN G LOCATION activity/Vol] 04: [facility] () Anion gap 13 mmol/L (NEG) 3 - 11 mmol/L 08-25-2019 PENDING LOCATION [Moles/Vol] 04: [facility] () AST [Catalytic 63 U/L (H) 10 - 34 U/L 08-25-2019 PENDI NG LOCATION activity/Vol] 04: [facility] () Basophils (Bld) 0.0 10*3/uL (NEG) 0 - 0.3 10*3/uL 08-25-2019 PENDING LOCATION [#/Vol] 04: [facility] () Basophils/100 0 % (NEG) 0.5 - 1 % 08-25-2019 PENDING LOCATION WBC (Bld) 04: [facility] () Bilirubin 1.2 mg/dL (H) 0.1 - 1.2 mg/dL 08-25-2019 PENDIN G LOCATION [Mass/Vol] 04: [facility] () Calcium 9.1 mg/dL (NEG) 8.5 - 10.2 mg/dL 08-25-2019 PENDI NG LOCATION [Mass/Vol] 04: [facility] () Calcium 9.0 mg/dL (NEG) 8.5 - 10.2 mg/dL 08-25-2019 PENDI NG LOCATION [Mass/Vol] 04: [facility] () Chloride 102 mmol/L (NEG) 95 - 106 mmol/L 08-25-2019 PENDI NG LOCATION [Moles/Vol] 04:0 [facility] (31095) CO2 [Moles/Vol] 19 mmol/L (L) 23 - 29 mmol/L 08-25-2019 P ENDING LOCATION 04:0 [facility] (66519) Creatinine 1.61 mg/dL (H) 08-25-2019 PENDING LOCATI ON [Mass/Vol] 04: [facility] (51609) Creatinine and 57 (no code) 08-25-2019 PENDING LOC ATION Glomerular 04: [facility] (23572) filtration rate.predicted panel - Serum, Plasma or Blood Eosinophils 0.0 10*3/uL (NEG) 0.05 - 0.5 08-25-2019 PENDING LOCATION (Bld) [#/Vol] 10*3/uL 04:0 [facility] (54890) Eosinophils/100 1 % (NEG) 1 - 4 % 08-25-2019 [facility] LOCATION WBC (Bld) 04:0 [facility] (92344) Erythrocyte 14.6 % (H) 11.6 - 14.6 % 08-25-2019 [facility] LOCATION distribution 04: [facility] (00884) width (RBC) [Ratio] Glucose 111 mg/dL (H) 60 - 125 mg/dL 08-25-2019 PENDING LOCATION [Mass/Vol] 04:0400 [facility] (64790) Hematocrit (Bld) 41 % (NEG) 36.1 - 50.3 % 08-25-2019 P ENDING LOCATION [Volume 04: [facility] (22711) fraction] Hemoglobin (Bld) 13.5 g/dL (NEG) 12.1 - 17.2 g/dL 08-25-2019 PENDING LOCATION [Mass/Vol] 04:0 [facility] (25453) Lymphocytes 2.2 10*3/uL (NEG) 0.9 - 2.9 08-25-2019 PENDING LOCATION (Bld) [#/Vol] 10*3/uL 04:0400 [facility] (91141) Lymphocytes/100 47 % (H) 20 - 40 % 08-25-2019 [facility] LOCATION WBC (Bld) 04:0 [facility] (84851) Magnesium 1.8 mg/dL (NEG) 1.7 - 2.2 mg/dL 08-25-2019 PENDIN G LOCATION [Mass/Vol] 04:0 [facility] (85848) MCH (RBC) 29 pg (NEG) 27 - 31 pg 08-25-2019 PENDING LOC ATION [Entitic mass] 04: [facility] (55468) MCHC (RBC) 33 g/dL (NEG) 32 - 36 g/dL 08-25-2019 PENDING LOCATION [Mass/Vol] 04: [facility] (46640) MCV (RBC) 89 (NEG) 08-25-2019 PENDING LOCATI ON [Entitic vol] 04:0 [facility] (18310) Monocytes (Bld) 0.5 10*3/uL (NEG) 0.3 - 0.9 08-25-2019 PEND ING LOCATION [#/Vol] 10*3/uL 04:0 [facility] (07867) Monocytes/100 11 % (NEG) 2 - 8 % 08-25-2019 PENDING LOCATION WBC (Bld) 04: [facility] (15781) Neutrophils 1.9 10*3/uL (NEG) 1.7 - 7 10*3/uL 08-25-2019 PE NDING LOCATION (Bld) [#/Vol] 04:0 [facility] (73437) Neutrophils/100 41 % (L) 40 - 60 % 08-25-2019 PENDIN G LOCATION WBC (Bld) 04:0 [facility] (92014) Platelet mean 9.6 (NEG) 08-25-2019 PENDING LOCA TION volume (Bld) 04:0 [facility] (13834) [Entitic vol] Platelets (Bld) 220 10*3/uL (NEG) 150 - 450 08-25-2019 PEND ING LOCATION [#/Vol] 10*3/uL 04:0 [facility] (86964) Potassium 3.5 mmol/L (L) 3.7 - 5.2 mmol/L 08-25-2019 PEND ING LOCATION [Moles/Vol] 04: [facility] (06102) Protein 8.5 g/dL (H) 6.4 - 8.3 g/dL 08-25-2019 PENDING LOCATION [Mass/Vol] 04: [facility] () RBC (Bld) 4.59 10*6/uL (NEG) 4.2 - 6.1 08-25-2019 PENDING L OCATION [#/Vol] 10*6/uL 04: [facility] () Sodium 134 mmol/L (L) 135 - 145 mmol/L 08-25-2019 PEND ING LOCATION [Moles/Vol] 04: [facility] () Troponin 0.363 ng/mL (HH) 0 - 0.4 ng/mL 08-25-2019 PENDIN G LOCATION I.cardiac 04: [facility] () [Mass/Vol] Urea nitrogen 26 mg/dL (H) 7 - 20 mg/dL 08-25-2019 PENDI NG LOCATION [Mass/Vol] 04: [facility] () Urea 16 mg/mg (no code) 6 - 22 mg/mg 08-25-2019 PENDING L OCATION nitrogen/Creatin 04: [facility] () ine [Mass ratio] WBC (Bld) 4.6 10*3/uL (NEG) 3.5 - 10.5 08-25-2019 PENDING L OCATION [#/Vol] 10*3/uL 04: [facility] () not yet categorized on 2019-06-27 CURRENT COUMADIN 10mg daily (no code) [facility] DOSE [facility] () laboratory on 2019-06-27 INR Coag (PPP) 3.0 {INR} (no code) 0.9 - 1.1 {INR} [facility] [Relative time] [facility] () laboratory on 2019-06-24 Albumin 4.0 g/dL (N) 3.4 - 5.4 g/dL [facility] [Mass/Vol] [facility] () Albumin/Globulin 1.3 {ratio} (N) 1 - 2.5 {ratio} [facility] [Mass ratio] [facility] () ALP [Catalytic 57 U/L (N) 44 - 147 U/L [facility] activity/Vol] [facility] (71145) ALT [Catalytic 18 U/L (N) 4 - 40 U/L [facility] ealt activity/Vol] [facility] (86260) AST [Catalytic 26 U/L (N) 10 - 34 U/L [facility] activity/Vol] [facility] (89741) Bilirubin 0.8 mg/dL (N) 0.1 - 1.2 mg/dL [facility] [Mass/Vol] [facility] (61838) Calcium 9.0 mg/dL (N) 8.5 - 10.2 mg/dL [facility] [Mass/Vol] [facility] (41970) Chloride 103 mmol/L (N) 95 - 106 mmol/L [facility] [Moles/Vol] [facility] (02034) CO2 [Moles/Vol] 27 mmol/L (N) 23 - 29 mmol/L [facility] (44569) Creatinine 1.10 mg/dL (N) [facility] [Mass/Vol] [facility] (95468) Free T4 1.2 ng/dL (N) 0.9 - 2.2 ng/dL [facility] [Mass/Vol] [facility] (40028) GFR/1.73 sq M 93 (N) 90 - 120 [facility] predicted among mL/min/{1.73_m2} mL/min/{1.73_m2} [place] [facility] blacks MDRD [facility] (S/P/Bld) [Vol (25174) rate/Area] GFR/1.73 sq 81 (N) 90 - 120 [facility] M.predicted MDRD mL/min/{1.73_m2} mL/min/{1.73_m2} [facility] (S/P/Bld) [Vol [facility] rate/Area] (89801) Globulin (S) 3.2 g/dL (N) 2 - 3.5 g/dL [facility] ealt [Mass/Vol] [facility] (51135) Glucose 90 mg/dL (N) 60 - 125 mg/dL [facility] [Mass/Vol] [facility] (34376) Natriuretic 469 pg/mL (H) 0 - 100 pg/mL [facility] ealth peptide B (Bld) [facility] [Mass/Vol] [facility] (49683) Potassium 3.2 mmol/L (L) 3.7 - 5.2 mmol/L [facility] [Moles/Vol] [facility] (87150) Protein 7.2 g/dL (N) 6.4 - 8.3 g/dL [facility] [Mass/Vol] [facility] (62764) Sodium 140 mmol/L (N) 135 - 145 mmol/L [facility] [Moles/Vol] [facility] (83850) TSH Qn 0.70 m[IU]/L (N) 0.4 - 4 m[IU]/L [facility] (69528) Urea nitrogen 18 mg/dL (N) 7 - 20 mg/dL [facility] [Mass/Vol] [facility] (77162) Urea NOT APPLICABLE (no code) [facility] nitrogen/Creatin [facility] [Mass ratio] [facility] (56004) Vital Signs The data below is from unstructured sources Vital Response Date/Time Temperature (Fahrenheit) 98.0 degree s F (97.6 - 99.5) 11/24/2016 4:00pm Temperature (Calculated Celsius) 36. 08641 degrees C (36.4 - 37.5) 11/24/2016 4:00pm [...] inches 11/24/2016 8:09am Height (Calculated Centimeters) 177. 023869 cm 11/24/2016 8:09am Weight (Pounds) 210 pounds 11/24/2016 8:09am Weight (Ounces) 0.0 oz 0 11/24/2016 8:09am Weight (Calculated Grams) 67589.40 gm 11/24/2016 8:09am Weight (Calculated Kilograms) 95.254 [...] Emergency department no information GERMAIN MESSER MD [facility] patient visit (no phone) [facility] (no phone) 05-23-2019 Emergency department no information CRISTINA SKY [facility] [place] - patient visit (no phone) [facility] 05-23-2019 (no phone) 07-14-2019 Evaluation and no information KARTHIK VAZQUEZ MD (n o [facility] [place] - management of phone) [facility] 07-15-2019 inpatient (no phone) 07-14-2019 Patient encounter no information KARTHIK VAZQUEZ MD (no [facility] [place]lin - procedure phone) [facility] 07-15-2019 (no phone) 07-04-2019 Patient encounter no information (no phone) [facility] procedure [facility] (no phone) 06-27-2019 Patient encounter no information (no phone) [facility] procedure [facility] (no phone) 06-24-2019 Patient encounter no information (no phone) [facility] procedure [facility] (no phone) 05-23-2019 Patient encounter no information CRISTINA SOLOMON [facility] procedure (no phone) [facility] (no phone) 11-24-2016 Patient encounter no information no name no or ganization name - procedure 11-24-2016 11-24-2016 Patient encounter no information FREDY K [facility] V ia [place]aitlin - procedure LESLI CARTER (no [facility] 11-24-2016 phone) (no phone) 11-22-2016 Patient encounter no information DANNA JIMENEZ MD (no [facility] Via [place]lin procedure phone) [facility] (no phone) 11-20-2016 Patient encounter no information FREDY K [facility] V ia [place]lin procedure LESLI CARTER (no [facility] [place] phone) (no phone) 10-11-2016 Patient encounter no information no name no or ganization name procedure 10-11-2016 Patient encounter no information DANNA JIMENEZ MD (no [facility] Via [place]lin procedure phone) [facility] (no phone) 12-07-2015 Patient encounter no information IVAN APPIAH APR N [facility] Via [place]lin procedure (no phone) [facility] (no phone) Medical Equipment No Information Payers No Information Advance Directives Directive Response Recor ded Date/Time Advance Directives No 8:08am Health Care Power of Second Rigger No 11/24/16 8:08am Organ Donor Yes 11/24/16 [...] This clinical document has been generated using Cued software that has been certified by the Office of the National Coordinator for Health Information Technology (ONC 15.99.04.3023.Diam.31.00.0.153273) and the National Committee for Leasing Consultant (NCQA, as an eMeasure certified technology). FOR [...] BASED ON T HE PRIMARY CLINICAL RECORDS. [employer]. provides no warranty or guara ntee of the accuracy or completeness of information in this document.The followi ng information is based on time limited clinical information
--- OUTSIDE RECORDS SUMMARY | 2019-08-25 11:08 | XMS REPORT | Continuity of Care Document ---
Demographics Preferred Language Unknown Marital Status Unknown Orthodoxy Affiliation Unknown Race Unknown Ethnic Group Unknown [...] APNEA (ADULT) (PEDIATR 12/08/2015 IVAN APPIAH N GOLF TOURNAMENT CONSULTANT Ot M25.562 PAIN IN LEFT KNEE 12/15/2015 IVAN APPIAH GOLF TOURNAMENT CONSULTANT Ot M25.562 PAIN IN LEFT KNEE 12/30/2015 IVAN APPIAH GOLF TOURNAMENT CONSULTANT Ot M25.562 PAIN IN LEFT KNEE 10/18/2016 [...] ESQUEDA Ot I25.10 ATHSCL HEART DISEASE OF [place] CORONARY 11/24/2016 FREDY ESQUEDA Ot I25.82 CHRONIC [...] TOBACCO USE 11/24/2016 FREDY ESQUEDA Ot Z79.01 INTERMEDIATE (CURRENT) USE OF ANTICOAGULANT 11/24/2016 FREDY ESQUEDA Ot Z79.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 THERAPY 11/24/2016 FREDY ESQUEDA Ot Z95.1 PRESENCE OF AORTOCORONARY BYPASS GRAFT 11/24/2016 FREDY ESQUEDA Ot Z95.2 PRESENCE OF PROSTHETIC HEART VALVE 05/23/2019 CRISTINA HINOJOSA MD Ot E87.6 HYPOKALEMIA 05/23/2019 CRISTINA HINOJOSA MD Ot I50.9 HEART FAILURE, UNSPECIFIED 05/23/2019 CRISTINA HINOJOSA MD Ot R07.89 OTHER CHEST PAIN 05/23/2019 CRISTINA HINOJOSA MD Ot Z79.01 INTERMEDIATE (CURRENT) USE OF ANTICOAGULANT 05/23/2019 CRISTINA HINOJOSA [...] PAIN 05/27/2019 CRISTINA HINOJOSA MD, Ot Z79.01 INTERMEDIATE (CURRENT) USE OF ANTICOAGULANT 05/27/2019 CRISTINA HINOJOSA [...] OF PROSTHETIC HEART VALVE 07/14/2019 IVAN APPIAH GOLF TOURNAMENT CONSULTANT Ot M25.562 PAIN IN LEFT KNEE 07/14/2019 [...] OF PROSTHETIC HEART VALVE 07/14/2019 IVAN APPIAH GOLF TOURNAMENT CONSULTANT Ot M25.562 PAIN IN LEFT KNEE 07/14/2019 [...] Ot I34.0 NONRHEUMATIC MITRAL (VALVE) INSUFFICIENC 07/14/2019 [facility] FREDY CARTER Ot I35.1 NONRHEUMATIC AORTIC (VALVE) INSUFFICIENC 07/14/2019 [facility] FREDY CARTER Ot R20.0 ANESTHESIA OF SKIN [...] UNSPECIFIED 07/15/2019 KARTHIK VAZQUEZ MD Ot 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 ETHIOPIAN 81 mL/min/1.73m2 > OR = 60 eGFR [...] 08/25/19 08:28 BNP PT 1215.0 pg/mL <100.0 Serum or plasma troponin i.cardiac measu rement (mass/volume) - 08/25/19 08:28 Serum or plasma troponin i.cardiac measurement (mass/v olume) 0.363 ng/mL <0.028 Encounters ACCT No. Visit Date/Time Discharge Status Pt. Type Provider Facility Loc./Unit Complaint [id number] 06/24/2019 09:00:00 Document Registration [id number] 07/14/2019 13:20:00 020 16:56:00 DIS Outpatient GEORGE MEYER, KARTHIK Parker [facility] 4TH ACUTE HEART FAILURE [id number] 05/23/2019 11:01:00 020 13:27:00 DIS Emergency ASHISH MEYER, CRISTINA Julien [facility] ER CHEST TIGHTNESS ;SOA [id number] 11/24/2016 07:57:00 017 16:20:00 DIS Outpatient MARLO ESQUEDA [facility] CATH CHF,CP,HTN, HLP [id number] 11/22/2016 11:00:00 017 23:59:59 CLS Outpatient DANNA RODRIGUEZ MD [facility] CHF,CP,HTN, HLP [id number] 11/20/2016 12:14:00 017 23:59:59 CLS Outpatient MARLO ESQUEDA [facility] RAD LT HACIAL N [id number] 10/11/2016 14:53:00 017 23:59:59 CLS Outpatient DANNA RODRIGUEZ MD [facility] CARD MR I34.0, TR I07.1 [id number] 12/07/2015 09:09:00 016 23:59:59 CLS Outpatient IVAN APPIAH GOLF TOURNAMENT CONSULTANT [facility] RAD LT KNEE PAIN [id number] 08/25/2019 08:39:00 Document Registration [id number] 12/07/2015 09:07:00 Document Registration [id number] 04/03/2012 20:15:00 Document Registration [id number] 07/01/2011 15:11:00 Document Registration
--- NOTE | 2019-08-25 11:36 | Consultation-Cardiology ---
HPI-Cardiology Cardiology Consultation: Date of Consultation 08/25/19 Time Seen by a Provider: 11:50 Date of Admission 08-25-2019 Attending Physician Ynes Kaye MD Admitting Physician Josse Crocker MD Consulting Physician Rhett Cristina MD HPI: Chief Complaint: CHF Mr. Moon is a 44 year old male who has been admitted to ICU 12 from the ED with acute on chronic systolic CHF. He reports increasing bilat LE swelling with some assoc increased SOB. He denies any c/o CP, palpitations, syncope or near syncope. He denies any vomiting. He does report some nausea/diarrhea over the last few days. He denies any fever or chills. States he has been compliant with his medications. Review of Systems-Cardiology Review of Systems Constitutional: No chills, No fever; malaise Eyes: No vision change Ears/Nose/Throat: no symptoms reported Respiratory: As described under HPI Cardiovascular: As described under HPI Gastrointestinal: As described under HPI Genitourinary: No dysuria, No hematuria Musculoskeletal: no symptoms reported Skin: No rash on exposed areas, No ulcerations on exposed areas Psychiatric/Neurological: no symptoms reported Hematologic: no symptoms reported KOI-Xadtmt-Jwgfrw Hx Patient Social History Alcohol Use: Rarely Uses Recreational Drug Use: No (PAST HX) Smoking Status: Former Smoker Type Used: Cigarettes 2nd Hand Smoke Exposure: No Recent Foreign Travel: No Recent Infectious Disease Expo: No Past Medical History PMH As described under Assessment. Family Medical History Family Medical History: He reports his father had CAD and HTN Family History: Hypertension 19 FATHER 19 MOTHER Allergies and Home Medications Allergies Coded Allergies: NKANo Known Allergies (Verified Allergy, Unknown, 03/04/06) Home Medications Amlodipine Besylate 10 Mg Tablet, 10 MG PO DAILY, (Reported) Furosemide 40 Mg Tablet, 40 MG PO DAILY, (Reported) LAST FILLED 06-27-2019 #30/30 DAY SUPPLY Lisinopril 20 Mg Tablet, 20 MG PO DAILY, (Reported) Metoprolol Succinate 25 Mg Tab.er.24h, 25 MG PO DAILY, (Reported) Potassium Chloride 20 Meq Tablet.er, 20 MEQ PO DAILY, (Reported) Warfarin Sodium 10 Mg Tablet, 10 MG PO DAILY, (Reported) LAST FILLED 03-24-2019 #90 Physical Exam-Cardiology Physical Exam Vital Signs/I&O 08/26/19 08/26/19 08/26/19/12/20 01:00 01:00 05:59 07:00 Temp 36.4 38.8 Pulse 80 80 80 91 Resp 16 18 B/P (MAP) 127/86 (100) 135/85 (102) Pulse Ox 98 99 O2 Delivery Room Air Room Air 08/26/19 08/26/19 07:30 08:51 Temp 37.0 Pulse 79 Resp 18 B/P (MAP) 135/79 (97) Pulse Ox 96 96 O2 Delivery Room Air Room Air 08/26/19 00:00 Intake Total 1250 ml Output Total 2500 ml Balance -1250 ml Capillary Refill : Less Than 3 Seconds Constitutional: AAO x 3, well-developed, well-nourished HEENT: PERRL, hearing is well preserved, oral hygience is good Neck: No carotid bruit; carotid pulses are 2 + bilaterally Respiratory: No accessory muscle use, No respiratory distress; chest expansion is symmetric, chest is bilaterally symmetric, other (good air entry) Cardiovascular: irregularly irregular; No JVD; S1 and S2, other (crisp, mechanical valve ) Extremities: significant edema (bilat pitting edema) Neurologic/Psychiatric: grossly intact (moves all extremities) Skin: No rash on exposed areas, No ulcerations on exposed areas Data Review Labs Laboratory Tests 08/25/19 14:59: Troponin I 0.334*H 08/26/19 02:31: White Blood Count 3.9L, Red Blood Count 3.96L, Hemoglobin 11.7L, Hematocrit 35L, Mean Corpuscular Volume 88, Mean Corpuscular Hemoglobin 30, Mean Corpuscular Hemoglobin Concent 34, Red Cell Distribution Width 14.7H, Platelet Count 190, Mean Platelet Volume 9.5, Prothrombin Time 40.5H, INR Comment 4.0H, Sodium Level 136, Potassium Level 2.9L, Chloride Level 103, Carbon Dioxide Level 20L, Anion Gap 13, Blood Urea Nitrogen 25H, Creatinine 1.52H, Estimat Glomerular Filtration Rate 60, BUN/Creatinine Ratio 16, Glucose Level 129H, Calcium Level 8.3L, Corrected Calcium 8.8, Magnesium Level 1.7, Total Bilirubin 0.9, Aspartate Amino Transf (AST/SGOT) 48H, Alanine Aminotransferase (ALT/SGPT) 34, Alkaline Phosphatase 82, Total Protein 7.3, Albumin 3.4, Triglycerides Level 56, Cholesterol Level 81, LDL Cholesterol Direct 54, VLDL Cholesterol 11, HDL Cholesterol 22L, Thyroid Stimulating Hormone (TSH) 0.41, Digoxin Level < 0.30L Radiology NAME: [facility] REC#: [id number] PT STATUS: REG ER : 1975 PHYSICIAN: GALDINO THOMAS DO ADMIT DATE: 08/25/19/ER Draft Date of Exam:08/25/19 CHEST PA/LAT (2 VIEW) INDICATION: Leg swelling and sinus infection. TIME OF EXAM: 9:10 AM Correlation is made with prior chest from 07/14/2019. The heart remains enlarged but stable. There are changes of median sternotomy and CABG. There does appear to be some minimal infiltrate or atelectasis in the right base as well as a small right effusion. The left lung is clear. Pulmonary vascularity is unremarkable. There is no pneumothorax. IMPRESSION: 1. Stable cardiomegaly and status post CABG. 2. Minimal right basilar infiltrate or atelectasis and small right effusion. Dictated on workstation # [id number] Dict: 08/25/1914 Trans: 08/25/19 0916 CVB [id number] Interpreted by: NICO MAR MD Electronically signed by: ECG Impression ECG Initial ECG Rhythm: A Fib/Flutter A/P-Cardiology Assessment/Admission Diagnosis Acute on chronic systolic congestive heart failure Chronic a-fib/flutter (per pt) Mechanical AoV replacement done in 2005 at [place] (per pt report) - mechanical replacement done d/t previous porcine valve (placed 4 years prior with "infec tion") Dilated cardiomyopathy (reports diagnosed over 14 years ago per pt) Mildly elevated troponin, likely type II myocardial infarction due to acute systolic congestive heart failure. Echocardiogram done 07/14/[address] Crar shows severe systolic dysfunction with an EF of 15-20 percent. Prostatic valve in the aortic position is working well with a mean gradient of 11 mmHg. No wall motion abnormalities. Acute renal insufficiency Previous coronary angiography done in [address] Jimenez shows normal left-sided arteries. Patent bypass graft to the RCA with normal RCA in the mid and distal segment. TIA (14 years ago) Warfarin tx - managed by PCP at [facility] Tobaccoism - quit 3 months ago Electrolyte abnormalities - replace Discussion and Recomendations Complex management issue Acute on chronic systolic CHF - treat with diuretics Dilated cardiomyopathy - continue with NEIL and BB - consider changing to Entresto, although cost is a concern for pt Chronic a-fib/flutter with controlled rate Mechanical aortic valve replacement for which he is on chronic OAC with warfarin - follow INR closely (goal 2.0-3.0) Echocardiogram to re-eval LVEF and valve Monitor lab closely Replace electrolytes We would like to thank medical services for this consult Further recs will be based on his hospital course Clinical Quality Measures DVT/VTE Risk/Contraindication: Risk Factor Score Per Nursin RFS Level Per Nursing on Admit: 4+=Very High JAZMYN JONES August 25, 2019 11:36
[2019-08-25] MEDS ORDERED: KCL 20 MEQ TAB (K-DUR) PO NR ×2 (12:30→13:15)
[2019-08-25 12:33] LABS: INR 4.8 (0.8-1.4)
[2019-08-25 13:14] VITALS: BP 111/78
[2019-08-25] MEDS ORDERED: METOLAZONE 5 MG (ZAROXOLYN) TAB PO NR (13:15)
[2019-08-25] MEDS ORDERED: lisINopril 10 MG (PRINIVIL) TABLET PO NR (13:15)
[2019-08-25] MEDS ORDERED: FUROSEMIDE 40 MG/4 ML INJ (LASIX) IVP NR (13:15)
[2019-08-25] MEDS ORDERED: DIGOXIN 0.125 MG (LANOXIN) TAB PO NR (13:15)
[2019-08-25] MEDS ORDERED: SPIRONOLACTONE 25 MG (ALDACTONE) TAB PO NR (13:15)
--- NOTE | 2019-08-25 13:19 | Consultation-Cardiology ---
HPI-Cardiology Cardiology Consultation: Date of Consultation 08/25/19 Time Seen by a Provider: 12:50 Date of Admission Attending Physician Ynes Kaye MD Admitting Physician Jsose Crocker MD Consulting Physician TAWANDA POZO MD, MA, FACP, FACC, FSCAI, CCDS HPI: Chief Complaint: CC: Shortness of breath, bilateral leg swelling HPI Mr. Mederos is a 44 year old male who has been admitted to ICU 12 from the ED with acute on chronic systolic CHF. He reports increasing bilat LE swelling with some assoc increased SOB. He denies any c/o CP, palpitations, syncope or near syncope. He denies any vomiting. He does report some nausea/diarrhea over the last few days. He denies any fever or chills. States he has been compliant with his medications. Review of Systems-Cardiology Review of Systems Constitutional: No chills, No fever; malaise Eyes: No vision change Ears/Nose/Throat: no symptoms reported Respiratory: As described under HPI Cardiovascular: As described under HPI Gastrointestinal: As described under HPI Genitourinary: No dysuria, No hematuria Musculoskeletal: no symptoms reported Skin: No rash on exposed areas, No ulcerations on exposed areas Psychiatric/Neurological: no symptoms reported Hematologic: no symptoms reported [id number]-Gpuixt-Waccfb Hx Patient Social History Alcohol Use: Rarely Uses Recreational Drug Use: No (PAST HX) Smoking Status: Former Smoker Type Used: Cigarettes 2nd Hand Smoke Exposure: No Recent Foreign Travel: No Recent Infectious Disease Expo: No Past Medical History PMH As described under Assessment. Family Medical History Family Medical History: He reports his father had CAD and HTN Family History: Hypertension 19 FATHER 19 MOTHER Allergies and Home Medications Allergies Coded Allergies: NKANo Known Allergies (Verified Allergy, Unknown, 03/04/06) Home Medications Amlodipine Besylate 10 Mg Tablet, 10 MG PO DAILY, (Reported) Furosemide 40 Mg Tablet, 40 MG PO DAILY Take 2 tabs (80 mg) daily for 3 days, then go back to 40 mg daily. Prescribed by: KARTHIK VAZQUEZ on 07/15/19 1786 Lisinopril 20 Mg Tablet, 20 MG PO DAILY, (Reported) Metoprolol Succinate 25 Mg Tab.er.24h, 25 MG PO DAILY, (Reported) Potassium Chloride 20 Meq Tablet.er, 40 MEQ PO DAILY Take 2 tabs (40 mEq) when taking 2 tabs (80 mg) of lasix Prescribed by: KARTHIK VAZQUEZ on 07/15/19 1446 Warfarin Sodium 10 Mg Tablet, 10 MG PO DAILY, (Reported) Patient Home Medication List Home Medication List Reviewed: Yes Physical Exam-Cardiology Physical Exam Vital Signs/I&O 08/25/19 08/25/19 08/25/19 08/25/19 08:15 10:05 11:39 12:00 Temp 36.2 36.5 Pulse 101 96 Resp 20 20 B/P (MAP) 135/105 (115) 115/98 Pulse Ox 96 98 95 O2 Delivery Room Air 08/25/19 12:18 Pulse 93 Capillary Refill : Less Than 3 Seconds Constitutional: AAO x 3, well-developed, well-nourished HEENT: PERRL, hearing is well preserved, oral hygience is good Neck: No carotid bruit; carotid pulses are 2 + bilaterally Respiratory: No accessory muscle use, No respiratory distress; chest expansion is symmetric, chest is bilaterally symmetric, other (good air entry) Cardiovascular: irregularly irregular; No JVD; S1 and S2, other (crisp, mechanical valve ) Extremities: significant edema (bilat pitting edema) Neurologic/Psychiatric: grossly intact (moves all extremities) Skin: No rash on exposed areas, No ulcerations on exposed areas Data Review Labs Laboratory Tests 08/25/19 08:28: White Blood Count 4.6, Red Blood Count 4.59, Hemoglobin 13.5, Hematocrit 41, Mean Corpuscular Volume 89, Mean Corpuscular Hemoglobin 29, Mean Corpuscular Hemoglobin Concent 33, Red Cell Distribution Width 14.6H, Platelet Count 220, Mean Platelet Volume 9.6, Neutrophils (%) (Auto) 41L, Lymphocytes (%) (Auto) 47H , Monocytes (%) (Auto) 11, Eosinophils (%) (Auto) 1, Basophils (%) (Auto) 0, Neutrophils # (Auto) 1.9, Lymphocytes # (Auto) 2.2, Monocytes # (Auto) 0.5, E osinophils # (Auto) 0.0, Basophils # (Auto) 0.0, Prothrombin Time 47.0*H, INR Comment 4.8H, Sodium Level 134L, Potassium Level 3.5L, Chloride Level 102, Carbon Dioxide Level 19L, Anion Gap 13, Blood Urea Nitrogen 26H, Creatinine 1.61H, Estimat Glomerular Filtration Rate 57, BUN/Creatinine Ratio 16, Glucose Level 111H, Calcium Level 9.1, Corrected Calcium 9.0, Magnesium Level 1.8, Total Bilirubin 1.2H, Aspartate Amino Transf (AST/SGOT) 63H, Alanine Aminotransferase (ALT/SGPT) 43, Alkaline Phosphatase 98, Troponin I 0.363*H, B-Type Natriuretic Peptide 1215.0H, Total Protein 8.5H, Albumin 4.1 A/P-Cardiology Assessment/Admission Diagnosis Acute on chronic systolic congestive heart failure due to dilated cardiomyopathy (diagnosed in or around 2005, according to the pt) DONNA - 2. Suspect this to be due to CHF and low cardiac output, because pt is hypervolemic at presentation Chronic a-fib/flutter (per pt) Mechanical AoV replacement done in 2005 at [place] (per pt report) - mechanical replacement done d/t previous porcine valve (placed 4 years prior with "infection"). Warfarin tx - managed by PCP at [facility] Mildly elevated troponin, likely type II myocardial infarction due to acute systolic congestive heart failure. Echocardiogram done 07/14/[address] Carr shows severe systolic dysfunction with an EF of 15-20 percent. Prostatic valve in the aortic position is working well with a mean gradient of 11 mmHg. No wall motion abnormalities. CAD. Previous coronary angiography done. Last cath in [address] Jimenez shows normal left-sided arteries, Patent bypass graft to the RCA with normal RCA in the mid and distal segment. TIA (early ) Tobaccoism - quit in or around May 2019 Elec abn, likely due to chronic diuretic therapy Discussion and Recomendations * Complex management issue * Treat decompensated CHF with diuretics * Treat dilated cm with bb and NEIL-inhib. Recommended and discussed Entresto. He refuses (cost issues) * INR supratherapeutic. Adjust warfarin * Echo * Monitor labs * Advised to continue to refrain from tobacco and alcohol use Clinical Quality Measures DVT/VTE Risk/Contraindication: Risk Factor Score Per Nursin RFS Level Per Nursing on Admit: 4+=Very High TAWANDA POZO MD FACP FAC CCDS August 25, 2019 13:19
[2019-08-25] MEDS ORDERED: POTA-51 PO (13:53)
[2019-08-25] MEDS ORDERED: FURO-124 PO (13:53)
--- NOTE | 2019-08-25 13:53 | NUR ---
SPOKE WITH THE PT AND WENT THRU THE EXT MED HISTORY TO COMPLETE THE MED REC THE FOLLOWING ARE FILL DATES FROM [facility]: 06-27-2019 FUROSEMIDE 40MG #30/30DS (I DOCUMENTED THE PAST DUE FILL IN THE MED REC) 07-04-2019 POTASSIUM 20 MEQ ER #60/60DS ( DIRECTIONS SHOW 1 TAB BID HOWEVER THE PT TAKES 1 TAB DAILY) 07-28-2019 METOPROLOL ER SUCC 25MG #30/30DS Addendum: 08/25/19 at 1428 by MELI JOLLY [employer] ALSO THE EXT MED HISTORY SHOWS IN MARCH 2019 THE PT HAD HCTZ 25MG FILLED BUT THE PT SAYS HE IS NOT LONGER TAKING THAT MEDICATION
[2019-08-25 16:00] VITALS: BP 134/99
[2019-08-25 20:07] VITALS: BP 138/90
[2019-08-25] MEDS: CARVEDILOL 3.125 MG (COREG) TABLET PO SCH (21:13)
[2019-08-26] VITALS (7 sets, daily range): BP systolic 108–140; BP diastolic 67–102
[2019-08-26 03:07] LABS: HEMOGLOBIN 11.7 G/DL (13.3-17.7); MEAN PLATELET VOLUME 9.5 FL (7.4-10.4); RED CELL DISTRIBUTION WIDTH 14.7 % (10.0-14.5); WHITE BLOOD COUNT 3.9 10^3/uL (4.3-11.0)
[2019-08-26 03:20] LABS: PROTHROMBIN TIME PATIENT 40.5 SEC (12.2-14.7)
[2019-08-26 03:21] LABS: CHLORIDE 103 MMOL/L (98-107); POTASSIUM 2.9 MMOL/L (3.6-5.0); SODIUM 136 MMOL/L (135-145)
[2019-08-26 03:22] LABS: ALBUMIN 3.4 GM/DL (3.2-4.5)
[2019-08-26 03:23] LABS: CALCIUM 8.3 MG/DL (8.5-10.1); TRIGLYCERIDES 56 MG/DL (<150); VLDL CHOLESTEROL 11 MG/DL (5-40)
[2019-08-26 03:24] LABS: GLUCOSE 129 MG/DL (70-105); TOTAL PROTEIN 7.3 GM/DL (6.4-8.2)
[2019-08-26 03:25] LABS: CARBON DIOXIDE 20 MMOL/L (21-32)
[2019-08-26 03:26] LABS: BILIRUBIN,TOTAL 0.9 MG/DL (0.1-1.0)
[2019-08-26 03:27] LABS: ALKALINE PHOSPHATASE 82 U/L (40-136); CREATININE SERUM 1.52 MG/DL (0.60-1.30); GFR ESTIMATED 60
[2019-08-26 03:28] LABS: CHOLESTEROL 81 MG/DL (< 200)
[2019-08-26 03:29] LABS: BUN/CREATININE RATIO 16
[2019-08-26 03:30] LABS: HDL CHOLESTEROL 22 MG/DL (40-60); MAGNESIUM 1.7 MG/DL (1.6-2.4)
[2019-08-26 03:31] LABS: ALANINE AMINOTRANSFERASE 34 U/L (0-55)
[2019-08-26] MEDS ORDERED: KCL 20 MEQ TAB (K-DUR) PO ONE ×3 (08:00→14:00)
--- NOTE | 2019-08-26 08:50 | Progress Note - Cardiology ---
Cardiology SOAP Progress Note Subjective: Sitting up in bed. States he feels his breathing has improved from yesterday, but does not feel it is back to his baseline. No c/o CP. States he is willing to stay another night, but wants to leave before Sunday, stating he needs to drive to [place] by the weekend. Feels LE swelling has improved. Objective: I&O/Vital Signs Weight (Pounds): 210 Weight (Ounces): 0.0 Weight (Calculated Kilograms): 95.778150 Constitutional: AAO x 3, well-developed, well-nourished Respiratory: No accessory muscle use, No respiratory distress; chest expansion is symmetric, chest is bilaterally symmetric, other (good air entry) Cardiovascular: irregularly irregular; No JVD; S1 and S2, other (crisp, mechanical valve ) Gastrointestional: soft, round, audible bowel sounds Extremities: significant edema (mild to mod bilat pitting edema - improved) Neurologic/Psychiatric: grossly intact (moves all extremities) Skin: No rash on exposed areas, No ulcerations on exposed areas Results/Procedures: Labs A/P: Assessment: Acute on chronic systolic congestive heart failure due to dilated cardiomyopathy (diagnosed in or around 2005, according to the pt) DONNA - 2. Suspect this to be due to CHF and low cardiac output, because pt is hypervolemic at presentation - renal function improved Chronic a-fib/flutter (per pt) Mechanical AoV replacement done in 2005 at [place] (per pt report) - mechanical replacement done d/t previous porcine valve (placed 4 years prior with "infection"). War[facility]in tx - [facility] Mildly elevated troponin, likely type II myocardial infarction due to acute systolic congestive heart failure. Echocardiogram done 07/14/[address] Carr shows severe systolic dysfunction with an EF of 15-20 percent. Prostatic valve in the aortic position is working well with a mean gradient of 11 mmHg. No wall motion abnormalities. CAD. Previous coronary angiography done. Last cath in [address] Jimenez shows normal left-sided arteries, Patent bypass graft to the RCA with normal RCA in the mid and distal segment. TIA (early ) Tobaccoism - quit in or around May 2019 Elec abn, likely due to chronic diuretic therapy Hypokalemia - likely secondary to aggressive diuretics Plan: * Complex management issue * Treat decompensated CHF with diuretics * Treat dilated cm with bb and NEIL-inhib. Recommended and discussed Entresto. He refuses (cost issues) * INR supratherapeutic. Adjust warfarin * Echo - pending * Monitor labs * Advised to continue to refrain from tobacco and alcohol use * Replace electrolytes * Discussed his CV issues and plan of care with him. He verbalizes un derstanding, but continues to state he wishes to leave the hospital before Sunday, stating staying longer than a day or two seems "a bit ridiculous to him". JAZMYN JONES August 26, 2019 08:50
[2019-08-26] MEDS: KCL 20 MEQ TAB (K-DUR) PO SCH (08:58)
[2019-08-26] MEDS: SPIRONOLACTONE 25 MG (ALDACTONE) TAB PO SCH (08:59)
[2019-08-26] MEDS: CARVEDILOL 3.125 MG (COREG) TABLET PO SCH ×2 (08:59→20:59)
[2019-08-26] MEDS: DIGOXIN 0.25 MG (LANOXIN) TAB PO SCH (08:59)
[2019-08-26] MEDS: lisINopril 10 MG (PRINIVIL) TABLET PO SCH (08:59)
[2019-08-26] MEDS ORDERED: FUROSEMIDE 40 MG/4 ML INJ (LASIX) IVP SCH (09:00)
--- NOTE | 2019-08-26 11:48 | NUR ---
CM/SS: Visited with pt as to his plan for discharge Plan: To be determined, pt was living a home prior to his hospital admission. Summary: Pt is known to this worker from his previous hospital visit in May 2019. Pt reports feeling better since being admitted. He seems very tired and wants to sleep. Pt reports doing some follow up medical appointments since last hospital stay, but reports he gets fluid overload sometimes due to is heart issues. Pt seems to be drifting off to sleep, this worker will follow up. 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
[2019-08-26] MEDS ORDERED: FUROSEMIDE 40 MG/4 ML INJ (LASIX) IVP ONE (14:15)
--- NOTE | 2019-08-26 14:20 | Progress Note - Cardiology ---
Cardiology SOAP Progress Note Subjective: Shortness of breath the same Leg swelling somewhat better No n/v/d No focal weakness or seizure Gen malaise No cp No palp or syncope Objective: I&O/Vital Signs 08/26/19 08/26/19 08/26/19 08/26/19 05:59 07:00 07:30 08:51 Temp 38.8 37.0 Pulse 80 91 79 Resp 18 18 B/P (MAP) 135/85 (102) 135/79 (97) Pulse Ox 99 96 96 O2 Delivery Room Air Room Air Room Air 08/26/19 08/26/19 12:00 12:38 Temp 36.8 Pulse 81 80 Resp 18 B/P (MAP) 108/67 (81) Pulse Ox 96 O2 Delivery Room Air 08/26/19 00:00 Intake Total 1250 ml Output Total 2500 ml Balance -1250 ml Weight (Pounds): 210 Weight (Ounces): 0.0 Weight (Calculated Kilograms): [id number] Constitutional: AAO x 3, well-developed, well-nourished Respiratory: No accessory muscle use, No respiratory distress; chest expansion is symmetric, chest is bilaterally symmetric, other (good air entry) Cardiovascular: irregularly irregular; No JVD; S1 and S2, other (crisp, mechanical valve ) Gastrointestional: soft, round, audible bowel sounds Extremities: significant edema (mild to mod bilat pitting edema - improved) Neurologic/Psychiatric: grossly intact (moves all extremities) Skin: No rash on exposed areas, No ulcerations on exposed areas Results/Procedures: Labs Laboratory Tests 08/25/19 14:59: Troponin I 0.334*H 08/26/19 02:31: White Blood Count 3.9L, Red Blood Count 3.96L, Hemoglobin 11.7L, Hematocrit 35L, Mean Corpuscular Volume 88, Mean Corpuscular Hemoglobin 30, Mean Corpuscular Hemoglobin Concent 34, Red Cell Distribution Width 14.7H, Platelet Count 190, Mean Platelet Volume 9.5, Prothrombin Time 40.5H, INR Comment 4.0H, Sodium Level 136, Potassium Level 2.9L, Chloride Level 103, Carbon Dioxide Level 20L, Anion Gap 13, Blood Urea Nitrogen 25H, Creatinine 1.52H, Estimat Glomerular Filtration Rate 60, BUN/Creatinine Ratio 16, Glucose Level 129H, Calcium Level 8.3L, Corrected Calcium 8.8, Magnesium Level 1.7, Total Bilirubin 0.9, Aspartate Amino Transf (AST/SGOT) 48H, Alanine Aminotransferase (ALT/SGPT) 34, Alkaline Phosphatase 82, Total Protein 7.3, Albumin 3.4, Triglycerides Level 56, Cholesterol Level 81, LDL Cholesterol Direct 54, VLDL Cholesterol 11, HDL Cholesterol 22L, Thyroid Stimulating Hormone (TSH) 0.41, Digoxin Level < 0.30L Laboratory Tests 08/25/19 08:28 08/26/19 02:31 A/P: Assessment: Acute on chronic systolic congestive heart failure due to dilated cardiomyopathy (diagnosed in or around 2005, according to the pt) DONNA - 2. Suspect this to be due to CHF and low cardiac output, because pt is hypervolemic at presentation - renal function improved Chronic a-fib/flutter (per pt) Mechanical AoV replacement done in 2005 at [place] (per pt report) - mechanical replacement done d/t previous porcine valve (placed 4 years prior with "infection"). Warfarin tx - managed by PCP at [facility] Mildly elevated troponin, likely type II myocardial infarction due to acute systolic congestive heart failure. Dilated cardiomyopathy. Pt refuses ICD. Echocardiogram done 07/14/[address] Carr shows severe systolic dysfunction with an EF of 15-20 percent. Prostatic valve in the aortic position is working well with a mean gradient of 11 mmHg. No wall motion abnormalities. CAD. Previous coronary angiography done. Last cath in [address] Jimenez shows normal left-sided arteries, Patent bypass graft to the RCA with normal RCA in the mid and distal segment. TIA (early ) Tobaccoism - quit in or around May 2019 Elec abn, likely due to chronic diuretic therapy Hypokalemia - likely secondary to aggressive diuretics Plan: * Complex management issue * Treat decompensated CHF with diuretics. Increase diuretics * Replenish K * Treat dilated cm with bb and NEIL-inhib. Recommended and discussed Entresto. He refuses (cost issues) * INR supratherapeutic. Adjust warfarin * Echo - pending * Monitor labs * Advised to continue to refrain from tobacco and alcohol use * Discussed his CV issues and plan of care with him. We recommended ICD for SCD prophylaxis. We have fully discussed this. He understands all issues and refuses ICD TAWANDA POZO MD FACP FACC CCDS August 26, 2019 14:20
--- NOTE | 2019-08-26 20:38 | History & Physical ---
HPI History of Present Illness: 44 yo that was admitted for increasing shortness of breath and found to be in systolic CHF. Patient states that he has felt the last 2 weeks he has been becoming more short of breath. He had a few beers with some friends over the weekend and his swelling got much worse after that. States that he does not eat added salt in his diet. States that his swelling is better this AM. Denies any chest pain. Still having shortness of breath with exertion. Source: patient Exam Limitations: no limitations Date seen by provider: August 26, 2019 Time Seen by Provider: 09:45 Attending Physician Al Gillis MD [place] [place] [facility] Consult Date of Admission August 25, 2019 at 09:46 Home Medications Home Medications Reviewed patient Home Medication Reconciliation performed by pharmacy medication reconciliations fish roe technician and/or nursing. Patients Allergies have been reviewed. Allergies Coded Allergies: NKANo Known Allergies (Verified Allergy, Unknown, 03/04/06) [id number]-[id number]-Dfbuko Hx Patient Social History Alcohol Use: Rarely Uses Recreational Drug Use: No (PAST HX) Smoking Status: Former Smoker Type Used: Cigarettes 2nd Hand Smoke Exposure: No Recent Foreign Travel: No Contact w/other who traveled: No Recent Hopitalizations: Yes (2019 FOR CHF AT ER NOT ADMITTED) Recent Infectious Disease Expo: No Past Medical History PMHx: Systolic CHF Dilated Cardiomyopathy Mechanical Aortic Valve HTN GERD SurgHx: Aortic valve replacement Family Medical History Family History: Hypertension 19 FATHER 19 MOTHER Review of Systems (CHC) Constitutional: no symptoms reported; No chills, No fever EENTM: no symptoms reported; No mouth pain, No nose congestion, No nose pain Respiratory: dyspnea on exertion, orthopnea, short of breath Cardiovascular: No chest pain; edema; No palpitations Gastrointestinal: no symptoms reported; No abdominal pain, No constipation, No diarrhea, No loss of appetite, No nausea, No vomiting Genitourinary: frequency Musculoskeletal: No back pain, No joint pain, No muscle pain Skin: no symptoms reported; No lesions, No rash Psychiatric/Neurological: No Symptoms Reported Reviewed Test Results Reviewed Test Results Lab Laboratory Tests Test 08/26/19 02:31 Range/Units White Blood Count 3.9 L 4.3-11.0 10^3/uL Red Blood Count 3.96 L 4.35-5.85 10^6/uL Hemoglobin 11.7 L 13.3-17.7 G/DL Hematocrit 35 L 40-54 % Mean Corpuscular Volume 88 80-99 FL Mean Corpuscular Hemoglobin 30 25-34 PG Mean Corpuscular Hemoglobin Concent 34 32-36 G/DL Red Cell Distribution Width 14.7 H 10.0-14.5 % Platelet Count 190 130-400 10^3/uL Mean Platelet Volume 9.5 7.4-10.4 FL Prothrombin Time 40.5 H 12.2-14.7 SEC INR Comment 4.0 H 0.8-1.4 Sodium Level 136 135-145 MMOL/L Potassium Level 2.9 L 3.6-5.0 MMOL/L Chloride Level 103 98-107 MMOL/L Carbon Dioxide Level 20 L 21-32 MMOL/L Anion Gap 13 5-14 MMOL/L Blood Urea Nitrogen 25 H 7-18 MG/DL Creatinine 1.52 H 0.60-1.30 MG/DL Estimat Glomerular Filtration Rate 60 BUN/Creatinine Ratio 16 Glucose Level 129 H 70-105 MG/DL Calcium Level 8.3 L 8.5-10.1 MG/DL Corrected Calcium 8.8 8.5-10.1 MG/DL Magnesium Level 1.7 1.6-2.4 MG/DL Total Bilirubin 0.9 0.1-1.0 MG/DL Aspartate Amino Transf (AST/SGOT) 48 H 5-34 U/L Alanine Aminotransferase (ALT/SGPT) 34 0-55 U/L Alkaline Phosphatase 82 40-136 U/L Total Protein 7.3 6.4-8.2 GM/DL Albumin 3.4 3.2-4.5 GM/DL Triglycerides Level 56 <150 MG/DL Cholesterol Level 81 < 200 MG/DL LDL Cholesterol Direct 54 1-129 MG/DL VLDL Cholesterol 11 5-40 MG/DL HDL Cholesterol 22 L 40-60 MG/DL Thyroid Stimulating Hormone (TSH) 0.41 0.35-4.94 UIU/ML Digoxin Level < 0.30 L 0.80-2.00 NG/ML Radiology NAME: PETER MOON [facility] REC#: [id number] PT STATUS: REG ER : 1975 PHYSICIAN: GALDINO THOMAS DO ADMIT DATE: 08/25/19/ER Draft Date of Exam:08/25/19 CHEST PA/LAT (2 VIEW) INDICATION: Leg swelling and sinus infection. TIME OF EXAM: 9:10 AM Correlation is made with prior chest from 07/14/2019. The heart remains enlarged but stable. There are changes of median sternotomy and CABG. There does appear to be some minimal infiltrate or atelectasis in the right base as well as a small right effusion. The left lung is clear. Pulmonary vascularity is unremarkable. There is no pneumothorax. IMPRESSION: 1. Stable cardiomegaly and status post CABG. 2. Minimal right basilar infiltrate or atelectasis and small right effusion. Dictated on workstation # [id number] Dict: 08/25/19913 Trans: 08/25/19915 CV [id number] Interpreted by: NICO MAR MD Electronically signed by: Physical Exam-(CHC) Physical Exam Vital Signs VS - Last 72 Hours, by Label 08/25/19 08/25/19 08/25/19 08/25/19 08:15 10:05 10:08 11:39 Temp 36.2 36.5 Pulse 101 96 Resp 20 20 B/P (MAP) 135/105 (115) 115/98 Pulse Ox 96 98 97 O2 Delivery Room Air 08/25/19 08/25/19 08/25/19 08/25/19 12:00 12:18 13:14 16:00 Temp 36.7 Pulse 93 89 97 Resp 18 17 B/P (MAP) 111/78 (89) 134/99 (111) Pulse Ox 95 97 97 O2 Delivery Room Air Room Air Room Air 08/25/19 08/25/19 08/25/19 08/26/19 19:00 20:07 21:00 01:00 Temp 36.8 36.4 Pulse 80 92 80 Resp 18 16 B/P (MAP) 138/90 (106) 127/86 (100) Pulse Ox 94 94 98 O2 Delivery Room Air Room Air Room Air 08/26/19 08/26/19 08/26/19 08/26/19 01:00 05:59 07:00 07:30 Temp 38.8 37.0 Pulse 80 80 91 79 Resp 18 18 B/P (MAP) 135/85 (102) 135/79 (97) Pulse Ox 99 96 O2 Delivery Room Air Room Air 08/26/19 08/26/19 08/26/19 08/26/19 08:51 12:00 12:38 16:00 Temp 36.8 36.8 Pulse 81 80 70 Resp 18 20 B/P (MAP) 108/67 (81) 116/76 (89) Pulse Ox 96 96 97 O2 Delivery Room Air Room Air Room Air Capillary Refill : Less Than 3 Seconds General Appearance: WD/WN, no apparent distress HEENT: PERRL/EOMI Neck: non-tender, full range of motion, supple Respiratory: chest non-tender, lungs clear, normal breath sounds, respiratory distress Cardiovascular: normal peripheral pulses, regular rate, rhythm Gastrointestinal: normal bowel sounds, non tender, soft Back: no CVA tenderness, no vertebral tenderness Extremities: no calf tenderness, normal capillary refill, pedal edema (3+ pitting edema equal bilaterally) Neurologic/Psychiatric: hypoid gear tester II-XII nml as tested, no motor/sensory deficits, alert, normal mood/affect, oriented x 3 Skin: normal color, warm/dry Lymphatic: no adenopathy Assessment/Plan Assessment/Plan Admission Status: Inpatient Order (span 2 midnights) Reason for Inpatient Admission: Patient requires cardiology consult and IV lasix with close monitoring of I/Os (1) Acute on chronic systolic (congestive) heart failure Status: Acute Assessment & Plan: - Cardiology consulted and managing, recommend ICD which patient declines, States that he is unable to be on Entresto due to cost, continue with diuresis with strict I/Os (2) Dilated cardiomyopathy Status: Chronic (3) Acute kidney failure Status: Acute Assessment & Plan: - Will continue to monitor with diuresis (4) Tobacco abuse Status: Chronic Assessment & Plan: - Patient quit in May (5) H/O mechanical aortic valve replacement Status: Chronic Assessment & Plan: - Managed on Warfarin, continue to monitor INR Clinical Quality Measures DVT/VTE Risk/Contraindication: Risk Factor Score Per Nursin RFS Level Per Nursing on Admit: 4+=Very High AL GILLIS MD August 26, 2019 20:38
[2019-08-27 03:50] LABS: CALCIUM 8.2 MG/DL (8.5-10.1)
[2019-08-27 03:55] VITALS: BP 130/82
[2019-08-27 03:55] LABS: CREATININE SERUM 1.53 MG/DL (0.60-1.30)
[2019-08-27 04:03] LABS: INR 2.8 (0.8-1.4); PROTHROMBIN TIME PATIENT 30.5 SEC (12.2-14.7)
[2019-08-27] MEDS ORDERED: FUROSEMIDE 40 MG/4 ML INJ (LASIX) IVP SCH (07:00)
[2019-08-27] MEDS: DIGOXIN 0.25 MG (LANOXIN) TAB PO SCH (07:35)
[2019-08-27] MEDS: KCL 20 MEQ TAB (K-DUR) PO SCH (07:35)
[2019-08-27] MEDS: SPIRONOLACTONE 25 MG (ALDACTONE) TAB PO SCH (07:35)
[2019-08-27] MEDS ORDERED: KCL 20 MEQ TAB (K-DUR) PO NR (07:36)
[2019-08-27] MEDS: CARVEDILOL 3.125 MG (COREG) TABLET PO SCH (07:36)
[2019-08-27] MEDS: lisINopril 10 MG (PRINIVIL) TABLET PO SCH (07:40)
[2019-08-27 08:00] VITALS: BP 134/94
--- NOTE | 2019-08-27 08:19 | Physician Query Clarification ---
PQ-Conflicting Diagnosis Admission/Discharge Admission Date: August 25, 2019 at 09:46 Discharge Date: The medical record reflects the following clinical scenario: History/Risk Factors: Acute on chronic systolic congestive heart failure due to dilated cardiomyopathy. Coronary artery disease History of coronary artery bypass graft. Status post aortic valve replacement. Clinical Findings:Troponin 0.363 and 0.334 on day of admission. BNP 1215.0 Treatment: IV Lasix for CHF, beta blockers, Coreg 3.125 mg and NEIL-inhibitors for dilated cardiomyopathy. Per Dr. Cristina's consult: Mildly elevated troponin, likely type II myocardial infarction due to acute systolic congestive heart failure. Question: Do you agree with the impression of the Type II MN per Dr. Cristina? Please document a response in Progress Note or Discharge Summary. 1. Yes 2. No 3. Other, with explanation of clinical findings 4. Clinically undetermined, no explanation for clinical findings. Please remember a lack of response to the above will prompt a phone page by CDI/Coding staff. In responding to this query, please exercise your independent professional judgment. The purpose of this communication is to more accurately reflect the complexity of your patients condition. The fact that a question is asked does not imply that any particular answer is desired or expected. Thank you for your timely response to this clarification. Requestors name: Leesa Murray [facility] Phone # ext [phone] or [phone] THIS PHYSICIAN QUERY FORM IS A PERMANENT PART OF THE MEDICAL RECORD LEESA MURRAY August 27, 2019 08:19
--- NOTE | 2019-08-27 08:40 | Progress Note - Cardiology ---
Cardiology SOAP Progress Note Subjective: Sitting up in bed. States he feels better this morning. Feels his SOB has improved from yesterday and LE swelling has improved. No c/o CP or palpitations. Objective: I&O/Vital Signs Weight (Pounds): 210 Weight (Ounces): 0.0 Weight (Calculated Kilograms): 95.995453 Constitutional: AAO x 3, well-developed, well-nourished Respiratory: No accessory muscle use, No respiratory distress; chest expansion is symmetric, chest is bilaterally symmetric, other (good air entry) Cardiovascular: irregularly irregular; No JVD; S1 and S2, other (crisp, mechanical valve ) Gastrointestional: soft, round, audible bowel sounds Extremities: significant edema (mild bilat pitting edema - improved) Neurologic/Psychiatric: grossly intact (moves all extremities) Skin: No rash on exposed areas, No ulcerations on exposed areas Results/Procedures: Labs A/P: Assessment: Acute on chronic systolic congestive heart failure due to dilated cardiomyopathy (diagnosed in or around 2005, according to the pt) DONNA - 2. Suspect this to be due to CHF and low cardiac output, because pt is hypervolemic at presentation - renal function improved Chronic a-fib/flutter (per pt) - rate controlled Mechanical AoV replacement done in 2005 at [place] (per pt report) - mechanical replacement done d/t previous porcine valve (placed 4 years prior with "infection"). Warfarin tx - managed by PCP at [facility] Mildly elevated troponin, likely type II myocardial infarction due to acute systolic congestive heart failure. Dilated cardiomyopathy. Pt refuses ICD. Echocardiogram done 07/14/[address] Carr shows severe systolic dysfunction with an EF of 15-20 percent. Prostatic valve in the aortic position is working well with a mean gradient of 11 mmHg. No wall motion abnormalities. CAD. Previous coronary angiography done. Last cath in [address] Jimenez shows normal left-sided arteries, Patent bypass graft to the RCA with normal RCA in the mid and distal segment. TIA (early ) Tobaccoism - quit in or around May 2019 Elec abn, likely due to chronic diuretic therapy Hypokalemia - likely secondary to aggressive diuretics Plan: * Complex management issue * Treat decompensated CHF with diuretics, dose increased yesterday - improving * Replenish K * Treat dilated cm with bb and NEIL-inhib. Recommended and discussed Entresto. He refuses (cost issues) * INR therapeutic - restart warfarin at lower dose * Echo - pending * Monitor labs * Advised to continue to refrain from tobacco and alcohol use * Discussed his CV issues and plan of care with him. We recommended ICD for SCD prophylaxis. We have fully discussed this. He understands all issues and refuses ICD JAZMYN JONES August 27, 2019 08:40
[2019-08-27] MEDS ORDERED: KCL 20 MEQ TAB (K-DUR) PO ONE ×3 (08:45→14:00)
--- NOTE | 2019-08-27 10:13 | Progress Note - Cardiology ---
Cardiology SOAP Progress Note Subjective: Shortness of breath much improved Leg swelling resolved No cp or palp or syncope No n/v/d Some gen malaise No focal weakness Wishes to go home Objective: I&O/Vital Signs 08/26/19 08/27/19 08/27/19 08/27/19 23:20 01:00 03:55 03:55 Temp 36.8 36.7 Pulse 86 111 83 Resp 20 16 B/P (MAP) 131/83 (99) 130/82 (98) Pulse Ox 98 98 98 O2 Delivery Room Air Room Air Room Air 08/27/19 08/27/19 06:38 08:00 Temp 36.8 Pulse 82 83 Resp 18 B/P (MAP) 134/94 (107) Pulse Ox 98 O2 Delivery Room Air 08/27/19 00:00 Intake Total 1260 ml Output Total 4250 ml Balance -2990 ml Weight (Pounds): 210 Weight (Ounces): 0.0 Weight (Calculated Kilograms): 95.764924 Constitutional: AAO x 3, well-developed, well-nourished Respiratory: No accessory muscle use, No respiratory distress; chest expansion is symmetric, chest is bilaterally symmetric, other (good air entry) Cardiovascular: irregularly irregular; No JVD; S1 and S2, other (crisp, mechanical valve ) Gastrointestional: soft, round, audible bowel sounds Extremities: significant edema (mild bilat pitting edema - improved) Neurologic/Psychiatric: grossly intact (moves all extremities) Skin: No rash on exposed areas, No ulcerations on exposed areas Results/Procedures: Labs Laboratory Tests 08/27/19 03:27: Prothrombin Time 30.5H, INR Comment 2.8H, Sodium Level 134L, Potassium Level 3.0L, Chloride Level 100, Carbon Dioxide Level 23, Anion Gap 11, Blood Urea Nitrogen 28H, Creatinine 1.53H, Estimat Glomerular Filtration Rate 60, BUN/Creatinine Ratio 18, Glucose Level 132H, Calcium Level 8.2L Laboratory Tests 08/26/19 02:31 08/27/19 03:27 A/P: Assessment: Acute on chronic systolic congestive heart failure due to dilated cardiomyopathy (diagnosed in or around 2005, according to the pt) DONNA - 2. Suspect this to be due to CHF and low cardiac output, because pt is hypervolemic at presentation - renal function improved Chronic a-fib/flutter (per pt) - rate controlled Mechanical AoV replacement done in 2005 at [place] (per pt report) - mechanical replacement done d/t previous porcine valve (placed 4 years prior with "infection"). Warfarin tx - managed by PCP at [facility] Mildly elevated troponin, likely type II myocardial infarction due to acute systolic congestive heart failure. Dilated cardiomyopathy. Pt refuses ICD. Echocardiogram done 07/14/[address] Carr shows severe systolic dysfunction with an EF of 15-20 percent. Prostatic valve in the aortic position is working well with a mean gradient of 11 mmHg. No wall motion abnormalities. CAD. Previous coronary angiography done. Last cath in [address] Jimenez shows normal left-sided arteries, Patent bypass graft to the RCA with normal RCA in the mid and distal segment. TIA (early ) Tobaccoism - quit in or around May 2019 Elec abn, likely due to chronic diuretic therapy Hypokalemia - likely secondary to diuretics Plan: * Complex management issue * Treat decompensated CHF with diuretics, dose increased yesterday - improving * Replenish K * Treat dilated cm with bb and NEIL-inhib. Recommended and discussed Entresto. He refuses (cost issues) * INR therapeutic - restart warfarin at lower dose * Monitor labs * Advised to continue to refrain from tobacco and alcohol use * Discussed his CV issues and plan of care with him. We recommended ICD for SCD prophylaxis. We have fully discussed this. He understands all issues and refuses ICD * He insists on going home. Continue current regimen. Increase supple K. Educated in management of heart failure. Close outpt f/u advised TAWANDA POZO MD FACP FAC CCDS August 27, 2019 10:13
[2019-08-27] MEDS ORDERED: CARV12.53 PO (10:31)
[2019-08-27] MEDS ORDERED: LISI10TA2 PO (10:31)
[2019-08-27] MEDS ORDERED: POTA-51 PO (10:31)
[2019-08-27] MEDS ORDERED: DIGO250T15 PO (10:31)
[2019-08-27] MEDS ORDERED: SPIR25TA5 PO (10:31)
[2019-08-27] MEDS ORDERED: FURO80TA83 PO (10:31)
[2019-08-27 12:00] VITALS: BP 107/60
--- NOTE | 2019-08-27 13:07 | Discharge Summary ---
Diagnosis/Chief Complaint Date of Admission August 25, 2019 at 09:46 Date of Discharge Discharge Diagnosis Problems/Diagnosis: (1) Acute on chronic systolic (congestive) heart failure Assessment & Plan: - Cardiology consulted and managing, recommend ICD which patient declines, States that he is unable to be on Entresto due to cost, continue with diuresis with strict I/Os Status: Acute (2) Dilated cardiomyopathy Status: Chronic (3) Acute kidney failure Assessment & Plan: - Will continue to monitor with diuresis Status: Acute (4) Tobacco abuse Assessment & Plan: - Patient quit in May Status: Chronic (5) H/O mechanical aortic valve replacement Assessment & Plan: - Managed on Warfarin, continue to monitor INR Status: Chronic Chief Complaint/HPI Chief Complaint/HPI 44 yo that was admitted for increasing shortness of breath and found to be in systolic CHF. Patient states that he has felt the last 2 weeks he has been becoming more short of breath. He had a few beers with some friends over the weekend and his swelling got much worse after that. States that he does not eat added salt in his diet. States that his swelling is better this AM. Denies any chest pain. Still having shortness of breath with exertion. Discharge Summary-Simple/Stand Consultations Discharge Physical Examination Allergies: Coded Allergies: NKANo Known Allergies (Verified Allergy, Unknown, 03/04/06) Vitals & I&Os Vital Sign - Last 12Hours Date Time Temp Pulse Resp B/P (MAP) Pulse Ox O2 Delivery O2 Flow Rate FiO2 08/27/19 12:23 75 08/27/19 12:00 36.6 20 107/60 (76) 94 Room Air Intake and Output 08/27/19 00:00 Intake Total 1260 ml Output Total 4250 ml Balance -2990 ml Hospital Course See final discharge diagnosis. Radiology Reviewed NAME: PETER MOON [facility] REC#: [id number] PT STATUS: REG ER : 1975 PHYSICIAN: GALDINO THOMAS DO ADMIT DATE: 08/25/19/ER Draft Date of Exam:08/25/19 CHEST PA/LAT (2 VIEW) INDICATION: Leg swelling and sinus infection. TIME OF EXAM: 9:10 AM Correlation is made with prior chest from 07/14/2019. The heart remains enlarged but stable. There are changes of median sternotomy and CABG. There does appear to be some minimal infiltrate or atelectasis in the right base as well as a small right effusion. The left lung is clear. Pulmonary vascularity is unremarkable. There is no pneumothorax. IMPRESSION: 1. Stable cardiomegaly and status post CABG. 2. Minimal right basilar infiltrate or atelectasis and small right effusion. Dictated on workstation # [id number] Dict: 08/25/1914 Trans: 08/25/1916 [facility] [id number] Interpreted by: NICO MAR MD Electronically signed by: Discharge Instructions to patient/family Please see electronic discharge instructions given to patient. Discharge Medications Reviewed and agree with Discharge Medication list on patient's Discharge Instruction sheet Clinical Quality Measures DVT/VTE Risk/Contraindication: Risk Factor Score Per Nursin RFS Level Per Nursing on Admit: 4+=Very High AL GILLIS MD August 27, 2019 13:07
[2019-08-27] MEDS ORDERED: WARF10TA44 PO (13:09)
--- NOTE | 2019-08-27 13:10 | Discharge Summary ---
Discharge [facility] Reconcile Patient Problems Problems Reviewed?: Yes Discharge Medications New, Converted or Re-Newed RX: Transmitted to Pharmacy New Medications: Furosemide (Lasix) 80 Mg Tablet 80 MG PO BID, #60 TAB 3 Refills Potassium Chloride (Potassium Chloride) 20 Meq Tablet.er 20 MEQ PO BID, #60 TAB 3 Refills Carvedilol (Carvedilol) 12.5 Mg Tablet 12.5 MG PO BID, #60 TAB 3 Refills Digoxin (Digox) 250 Mcg Tablet 0.25 MG PO DAILY, #30 TAB 3 Refills Lisinopril (Lisinopril) 10 Mg Tablet 10 MG PO DAILY, #30 TAB 3 Refills Spironolactone (Spironolactone) 25 Mg Tablet 25 MG PO DAILY, #30 TAB 3 Refills Changed Medications: Warfarin Sodium (Warfarin Sodium) 10 Mg Tablet 7.5 MG PO DAILY, #30 TAB (Changed from: 10 MG) LAST FILLED 03-24-2019 #90 Discontinued Medications: Amlodipine Besylate (Amlodipine Besylate) 10 Mg Tablet 10 MG PO DAILY, TAB Furosemide (Lasix) 40 Mg Tablet 40 MG PO DAILY, TAB LAST FILLED 06-27-2019 #30/30 DAY SUPPLY Lisinopril (Lisinopril) 20 Mg Tablet 20 MG PO DAILY, TAB Metoprolol Succinate (Metoprolol Succinate) 25 Mg Tab.er.24h 25 MG PO DAILY, TAB Potassium Chloride (Potassium Chloride) 20 Meq Tablet.er 20 MEQ PO DAILY, TAB Patient Instructions Goal/Follow Up Appt: Nurse from [facility] will call with an appt Activity & Diet Discharge Diet: Cardiac Diet AL GILLIS MD August 27, 2019 13:10
[2019-08-27] MEDS ORDERED: REGADENOSON 0.4 MG/5 ML SYR (LEXISCAN) IV ONE (13:15)
[2019-08-27] MEDS ORDERED: warFARin 10 MG (COUMADIN) TAB PO SCH (18:00)
[2019-08-27] MEDS ORDERED: warFARin 5 MG (COUMADIN) TAB PO ONE (18:00)
[2019-08-27] MEDS ORDERED: CARVEDILOL 12.5 MG (COREG) TABLET PO SCH (21:00)
== END 2019-08-27 14:00 | disposition home or self-care (01) | DRG 281 ==
LOC: EDUNIT# 08:11 → ER 08:12 → ICU 09:46
PROVIDERS: ADMIT Family Medicine; ATTEND Family Medicine
DX: I11.0 Hypertensive heart disease with heart failure (principal); I50.23 Acute on chronic systolic (congestive) heart failure; I21.A1 Myocardial infarction type 2; I42.0 Dilated cardiomyopathy; I48.20 Chronic atrial fibrillation, unspecified; I48.92 Unspecified atrial flutter; N17.9 Acute kidney failure, unspecified; I25.10 Atherosclerotic heart disease of native coronary artery without angina pectoris; K21.9 Gastro-esophageal reflux disease without esophagitis; R11.0 Nausea; R19.7 Diarrhea, unspecified; J34.9 Unspecified disorder of nose and nasal sinuses; G47.30 Sleep apnea, unspecified; E87.8 Other disorders of electrolyte and fluid balance, not elsewhere classified; E87.6 Hypokalemia; M17.12 Unilateral primary osteoarthritis, left knee; T50.2X5A Adverse effect of carbonic-anhydrase inhibitors, benzothiadiazides and other diuretics, initial encounter; Z95.2 Presence of prosthetic heart valve; Z95.1 Presence of aortocoronary bypass graft; Z86.73 Personal history of transient ischemic attack (TIA), and cerebral infarction without residual deficits; Z87.891 Personal history of nicotine dependence; Z79.01 Long term (current) use of anticoagulants
CPT/HCPCS: 36415; 71046; 80048; 80053; 80061; 80162; 83735; 83880; 84443; 84484; 85025; 85027; 85610; 93005; 96365